=== PATIENT | female | born 1985 ===

== ENCOUNTER 2020-02-27 13:23 | Outpatient (REF) | payer MEDICAID, SELFPAY | END 2020-02-27 13:24 | disposition home or self-care (01) | LOC: HO.LNP 13:23 | PROVIDERS: Referring Provider Obstetrics & Gynecology; Visit Provider Obstetrics & Gynecology | DX: R10.2 Pelvic and perineal pain (principal) | CPT/HCPCS: 88305; 99214; 99215 ==

== ENCOUNTER 2020-03-08 15:27 | Outpatient (REF) | payer MEDICAID, SELFPAY ==
--- NOTE | 2020-03-08 15:31 | US_ITS ---
EXAMINATION: PELVIC ULTRASOUND CLINICAL INFORMATION: Pain COMPARISON: Previous CT of the abdomen and pelvis August 2017 and pelvic ultrasound August 2016 TECHNIQUE: Transabdominal and transvaginal pelvic ultrasound was performed. Transvaginal exam was performed for better visualization of the uterus and ovaries. FINDINGS: The uterus is anteverted and retroflexed and measures 9.3 x 3.1 x 5.5 cm in dimension. No focal uterine lesion is seen. Endometrial thickness is normal estimated at 0.9 cm. There are small nabothian cysts in the cervix. There is a small amount of fluid in the endocervical canal. The ovaries are normal-appearing. The right ovary measures 3.5 x 2.1 x 2.8 cm and the left ovary measures 2.1 x 1 x 2.4 cm. There is no fluid in the pelvis. IMPRESSION: Unremarkable exam.
== END 2020-03-08 15:28 | disposition home or self-care (01) ==
LOC: HO.US 15:27
PROVIDERS: Visit Provider Physician Assistant Medical
DX: R10.2 Pelvic and perineal pain (principal)
CPT/HCPCS: 76830; 76856

== ENCOUNTER 2020-07-16 15:42 | Emergency (ER) | payer MEDICAID, SELFPAY ==
--- NOTE | ~2020-07-16 | XR_ITS ---
EXAMINATION: XR CHEST CLINICAL INFORMATION: Cough and chest pain COMPARISON: Chest radiograph 05/26/2017 TECHNIQUE: Frontal view of the chest was obtained. FINDINGS: No significant abnormality is noted involving the heart, lungs, mediastinum, bony thorax or soft tissues. XR/XR chest 1V IMPRESSION: Unremarkable examination.
--- NOTE | 2020-07-16 15:44 | ECG_ITS ---
Test Reason : CHEST PAIN Blood Pressure : / mmHG Vent. Rate : 112 BPM Atrial Rate : 112 BPM P-R Int : 128 ms QRS Dur : 086 ms QT Int : 328 ms P-R-T Axes : 047 050 044 degrees QTc Int : 447 ms Sinus tachycardia Nonspecific T wave abnormality Abnormal ECG When compared with ECG of 26-MAY-2017 13:29, T wave inversion more prominent in anterior leads Referred By: Generic ED Physician Electronically Signed By:LYRIC LE MD
[2020-07-16 15:49] VITALS: BP 116/68; PULSE 114; RESP 18; TEMP 37.1; O2SAT 98; BMI 33.4
[2020-07-16 18:27] LABS: MANUAL DIFF FLAG NO
--- NOTE | 2020-07-16 18:35 | ED.CHESTPAIN ---
HPI - Chest Pain General Chief Complaint: Chest Pain Stated Complaint: CP Time Seen by Provider: 07/16/20 18:35 History of Present Illness HPI narrative: Patient complains of 4 days of a continuous pleuritic chest pain worse with coughing accompanied by more frequent use of her albuterol inhaler and a dry cough that is been going on for about a week, as well as a stuffy nose, no fever no chills, albuterol has relieved her shortness of breath and she is not short of breath at this time, the pain is not associated with anything and is present all the time for 4 days, no effect with exertion, no sweating, no leg pain or swelling, no nausea no vomiting The pain is present now only with a deep breath or cough, patient has had this pain before associated with a cough and asthma Related Data Previous Rx's Medication Instructions Recorded azithromycin [Zithromax Z-Chicho] 250 mg PO DAILY 5 Days #6 tab 07/16/20 prednisone 40 mg PO DAILY 4 Days #8 tab 07/16/20 Allergies Allergy/AdvReac Type Severity Reaction Status Date / Time meloxicam [MELOXICAM] Allergy Unknown TACHYCARDIA, Verified 02/27/20 13:30 palpitations morphine [MORPHINE] Allergy Unknown UNKNOWN, Verified 02/27/20 13:30 vomiting Sulfa (Sulfonamide Allergy Unknown SWELLING Verified 02/27/20 13:30 Antibiotics) [SULFA (SULFONAMIDE ANTIBIOTICS)] Review of Systems Review of Systems: Positive for cough and pleuritic chest pain for 4 days as well as nasal congestion Negatives are fever chills, no dizziness no weakness no fainting no feeling faint, no palpitations no exertional symptoms, no sweating no nausea no vomiting no abdominal pain no leg pain no leg swelling no numbness or weakness, no rash PMFSH Past Medical History PMFSH Narrative: Medical history includes asthma anxiety depression and bipolar Source: nursing notes reviewed Medical History Anxiety and depression Asthma Bipolar 1 disorder Fibromyalgia Migraines Surgical History Hx of section Family History Family History Father Family hx of hypertension Maternal Grandfather Family history of diabetes mellitus Maternal Grandmother Family history of diabetes mellitus Social History Social History Alcohol intake: never Smoking Status: Never smoker Advance Directives: No Advance Directives Information Provided: Yes Sexual orientation: Straight/Heterosexual Gender identity: female Physical Exam Vital Signs: Vital Signs: Last Vital Signs Temp 98.7 F 07/16/20 15:49 Pulse 106 H 07/16/20 20:00 Resp 18 07/16/20 20:00 BP 113/70 07/16/20 20:00 Pulse Ox 98 07/16/20 20:00 Body Mass Index 33.4 General appearance is no acute distress, comfortable relaxed cooperative, in O x3 Head is normocephalic atraumatic The neck is supple The pharynx is clear The eardrums and ear canals are normal no redness or swelling The neck is supple, no lymphadenopathy no JVD The chest is clear to auscultation with full symmetric equal breath sounds no wheezing The heart rate and rhythm regular no murmur The abdomen soft nontender The extremities no edema no calf tenderness or swelling Skin no rash Neuro no focal deficit, patient is A&O x3, conversation and understanding are normal, gait is normal balance is normal Course Course Course Narrative: Patient remains comfortable throughout ER visit, she was not wheezing but has been using her nebulizer frequently with good relief of her shortness of breath at home, EKG and troponin did not show any of any evidence of myocardial infarction PE very unlikely given similarity to previous symptoms in the past when she had bronchitis associated with an asthma flare Patient is discharged with diagnosis bronchitis and asthma, shortness of breath was relieved with albuterol at home, she has had these symptoms with cough in the past MDM - Chest Pain Lab Data Attestation: I reviewed the patient's lab results. Result diagrams: 07/16/20 18:04 07/16/20 18:04 Labs: Lab Results 07/16/20 07/16/20 07/16/20 Range/Units 18:04 18:04 18:04 WBC 7.1 (4.8-10.8) X10*3/uL RBC 4.74 (4.20-5.50) X10*6/uL Hgb 13.5 (12.0-16.0) g/dl Hct 42.1 (37-47) % MCV 88.8 (80-98) fL MCH 28.5 (27.0-33.0) pg MCHC 32.1 (31.0-35.0) g/dl RDW 13.2 (11.0-16.0) % Plt Count 221 (160-400) X10*3/uL MPV 12.2 (9.4-12.3) fL Immature Gran % (Auto) 2.8 H (0.0-0.4) % Neut % (Auto) 50.4 (45-73) % Lymph % (Auto) 31.9 (20-40) % Jasper % (Auto) 7.7 (2-11) % Eos % (Auto) 6.2 H (0-4) % Baso % (Auto) 1.0 (0-2) % Lymph # (Auto) 2.3 (1.2-4.9) X10*3/uL Jasper # (Auto) 0.6 (0.1-1.2) X10*3/uL Eos # (Auto) 0.4 (0.0-0.4) X10*3/uL Baso # (Auto) 0.1 (0.0-0.2) X10*3/uL Abs Immat Gran (auto) 0.20 H (0.00-0.03) X10*3/uL Absolute Neuts (auto) 3.6 (2.0-8.3) X10*3/uL Absolute Nucleated RBC 0.000 (0.0-0.012) X10*3/uL Nucleated RBC % (auto) 0.0 (0.0-0.2) /100WBC Hold Blue Top SEE NOTE Sodium 138 (135-145) mmol/L Potassium 4.0 (3.3-5.1) mmol/L Chloride 104 (96-108) mmol/L Carbon Dioxide 24 (22-29) mmol/L Anion Gap 14 (12-20) BUN 8 L (9-16) mg/dL Creatinine 0.78 (0.5-1.4) mg/dL Estim Creat Clear Calc 116.2 Estimated GFR > 60 Random Glucose 98 (60-115) mg/dL Calcium 8.9 (8.4-10.2) mg/dL Troponin I High Sens (<3.5-17.0) ng/L 07/16/20 Range/Units 18:04 WBC (4.8-10.8) X10*3/uL RBC (4.20-5.50) X10*6/uL Hgb (12.0-16.0) g/dl Hct (37-47) % MCV (80-98) fL MCH (27.0-33.0) pg MCHC (31.0-35.0) g/dl RDW (11.0-16.0) % Plt Count (160-400) X10*3/uL MPV (9.4-12.3) fL Immature Gran % (Auto) (0.0-0.4) % Neut % (Auto) (45-73) % Lymph % (Auto) (20-40) % Jasper % (Auto) (2-11) % Eos % (Auto) (0-4) % Baso % (Auto) (0-2) % Lymph # (Auto) (1.2-4.9) X10*3/uL Jasper # (Auto) (0.1-1.2) X10*3/uL Eos # (Auto) (0.0-0.4) X10*3/uL Baso # (Auto) (0.0-0.2) X10*3/uL Abs Immat Gran (auto) (0.00-0.03) X10*3/uL Absolute Neuts (auto) (2.0-8.3) X10*3/uL Absolute Nucleated RBC (0.0-0.012) X10*3/uL Nucleated RBC % (auto) (0.0-0.2) /100WBC Hold Blue Top Sodium (135-145) mmol/L Potassium (3.3-5.1) mmol/L Chloride (96-108) mmol/L Carbon Dioxide (22-29) mmol/L Anion Gap (12-20) BUN (9-16) mg/dL Creatinine (0.5-1.4) mg/dL Estim Creat Clear Calc Estimated GFR Random Glucose (60-115) mg/dL Calcium (8.4-10.2) mg/dL Troponin I High Sens < 3.5 (<3.5-17.0) ng/L Discharge Plan Discharge Clinical Impression: Bronchitis Asthma Qualifiers: Asthma severity: moderate Asthma persistence: unspecified Asthma complication type: unspecified Qualified Code(s): J45.909 - Unspecified asthma, uncomplicated Patient Disposition: Home, Self-Care Additional Instructions: Pain and cough are most likely from bronchitis and asthma We are starting prednisone for your asthma and Zithromax antibiotic for the cough Return any time for any worse difficulty breathing, worsening chest pain, fainting dizziness, any worse condition or any concerns Prescriptions: New azithromycin [Zithromax Z-Chicho] 250 mg tablet 250 mg PO DAILY 5 Days Qty: 6 RF: 0 prednisone 20 mg tablet 40 mg PO DAILY 4 Days Qty: 8 RF: 0 Interventions: ED Discharge Assessment Last Done: 07/16/20 20:24
[2020-07-16 18:44] LABS: Basophils Absolute Auto 0.1 X10*3/uL (0.0-0.2); Eosinophils Absolute Auto 0.4 X10*3/uL (0.0-0.4); Eosinophils Percent Auto 6.2 % (0-4); Hematocrit 42.1 % (37-47); Hemoglobin 13.5 g/dl (12.0-16.0); Imm Gran Pct Auto 2.8 % (0.0-0.4); Lymphocytes Absolute Auto 2.3 X10*3/uL (1.2-4.9); Lymphocytes Percent Auto 31.9 % (20-40); Mean Corpuscular HGB Conc 32.1 g/dl (31.0-35.0); Mean Corpuscular Hemoglobin 28.5 pg (27.0-33.0); Mean Corpuscular Volume 88.8 fL (80-98); Mean Platelet Volume 12.2 fL (9.4-12.3); Monocytes Absolute Auto 0.6 X10*3/uL (0.1-1.2); Monocytes Percent Auto 7.7 % (2-11); Neutrophils Absolute Auto 3.6 X10*3/uL (2.0-8.3); Neutrophils Percent Auto 50.4 % (45-73); Platelet Count 221 X10*3/uL (160-400); Red Blood Count 4.74 X10*6/uL (4.20-5.50); Red Cell Distribution Width 13.2 % (11.0-16.0); White Blood Count 7.1 X10*3/uL (4.8-10.8)
[2020-07-16 19:03] LABS: Anion Gap 14 (12-20); Blood Urea Nitrogen 8 mg/dL (9-16); Calcium 8.9 mg/dL (8.4-10.2); Carbon Dioxide 24 mmol/L (22-29); Chloride 104 mmol/L (96-108); Creatinine Clr Calc Pharmacy 116.2; Estimated Glomerular Filt Rate > 60; Glucose Random 98 mg/dL (60-115); Sodium 138 mmol/L (135-145)
[2020-07-16 19:07] LABS: Troponin-I High Sensitivity < 3.5 ng/L (<3.5-17.0)
[2020-07-16 20:00] VITALS: BP 113/70; PULSE 106; RESP 18; O2SAT 98
[2020-07-16] MEDS: predniSONE 20 MG TABLET 40 MG PO (20:20)
[2020-07-16] MEDS: Ketorolac Tromethamine 30 MG/ML VIAL IM (20:20)
== END 2020-07-16 20:27 | disposition home or self-care (01) ==
PROVIDERS: Emergency Provider Emergency Medicine
DX: J40 Bronchitis, not specified as acute or chronic (principal); R07.89 Other chest pain; R05 Cough; Z79.899 Other long term (current) drug therapy
CPT/HCPCS: 36415; 71045; 80048; 84484; 85025; 93005; 96372; 99284; J1885

== ENCOUNTER 2020-09-23 15:32 | Outpatient (REF) | payer MEDICAID, SELFPAY | END 2020-09-23 15:33 | disposition home or self-care (01) | LOC: HO.LAB 15:32 | PROVIDERS: Visit Provider Internal Medicine | DX: Z20.822 Contact with and (suspected) exposure to COVID-19 (principal) | CPT/HCPCS: C9803; U0003; U0005 ==

== ENCOUNTER 2020-11-16 10:50 | Outpatient (REF) | payer MEDICAID, SELFPAY ==
--- NOTE | ~2020-11-16 | XR_ITS ---
EXAMINATION: XR KNEE, RIGHT CLINICAL INFORMATION: Pain in bilateral knees COMPARISON: None TECHNIQUE: Four views of the right knee. FINDINGS: Bones and soft tissues are normal. No fracture or joint effusion. Alignment is anatomic. Joint spaces are well maintained. No abnormal soft tissue calcification. XR/XR knee RT 4V IMPRESSION: Normal right knee.
--- NOTE | ~2020-11-16 | XR_ITS ---
EXAMINATION: XR KNEE, LEFT CLINICAL INFORMATION: Pain in bilateral knees COMPARISON: 05/17/2014 TECHNIQUE: Four views of the left knee. FINDINGS: No fracture, dislocation, or joint effusion. There may be mild medial compartment joint space narrowing. Lateral and patellofemoral compartment joint spaces are maintained. XR/XR knee LT 4V IMPRESSION: Possible mild medial compartment joint space narrowing.
== END 2020-11-16 10:51 | disposition home or self-care (01) ==
LOC: HO.XRAY 10:50
PROVIDERS: Absent Provider Family Medicine; PCP Family Medicine; Visit Provider Family Medicine
DX: M25.561 Pain in right knee (principal); M25.562 Pain in left knee
CPT/HCPCS: 73564

== ENCOUNTER 2020-12-01 23:10 | Emergency (ER) | payer OTHER, MEDICAID, SELFPAY ==
--- NOTE | ~2020-12-01 | XR_ITS ---
EXAMINATION: 1. LEFT WRIST. 2. LEFT ELBOW. 3. LEFT SHOULDER. CLINICAL INFORMATION: Arm pain COMPARISON: Left elbow May 09, 2014. Left shoulder May 17, 2014. TECHNIQUE: 1. Left wrist. 3 views 2. Left elbow. 4 views 3. Left shoulder. 3 views FINDINGS: 1. Left wrist. No fracture or dislocation. No soft tissue abnormality. 2. Left elbow. No fracture. No dislocation. No joint effusion. 3. Left shoulder. No fracture. Glenohumeral and acromioclavicular joints are normal. No soft tissue abnormality. XR/XR elbow LT min 3V IMPRESSION: 1. Left wrist. Normal left wrist. 2. Left elbow. Normal left elbow. 3. Left shoulder. Normal left shoulder.
--- NOTE | ~2020-12-01 | XR_ITS ---
EXAMINATION: 1. LEFT WRIST. 2. LEFT ELBOW. 3. LEFT SHOULDER. CLINICAL INFORMATION: Arm pain COMPARISON: Left elbow May 09, 2014. Left shoulder May 17, 2014. TECHNIQUE: 1. Left wrist. 3 views 2. Left elbow. 4 views 3. Left shoulder. 3 views FINDINGS: 1. Left wrist. No fracture or dislocation. No soft tissue abnormality. 2. Left elbow. No fracture. No dislocation. No joint effusion. 3. Left shoulder. No fracture. Glenohumeral and acromioclavicular joints are normal. No soft tissue abnormality. XR/XR wrist LT min 3V IMPRESSION: 1. Left wrist. Normal left wrist. 2. Left elbow. Normal left elbow. 3. Left shoulder. Normal left shoulder.
--- NOTE | ~2020-12-01 | XR_ITS ---
EXAMINATION: 1. LEFT WRIST. 2. LEFT ELBOW. 3. LEFT SHOULDER. CLINICAL INFORMATION: Arm pain COMPARISON: Left elbow May 09, 2014. Left shoulder May 17, 2014. TECHNIQUE: 1. Left wrist. 3 views 2. Left elbow. 4 views 3. Left shoulder. 3 views FINDINGS: 1. Left wrist. No fracture or dislocation. No soft tissue abnormality. 2. Left elbow. No fracture. No dislocation. No joint effusion. 3. Left shoulder. No fracture. Glenohumeral and acromioclavicular joints are normal. No soft tissue abnormality. XR/XR shoulder LT min 2V IMPRESSION: 1. Left wrist. Normal left wrist. 2. Left elbow. Normal left elbow. 3. Left shoulder. Normal left shoulder.
[2020-12-01 23:12] VITALS: BP 113/80; PULSE 120; RESP 18; TEMP 37; O2SAT 100; BMI 35.5
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
[2020-12-02] MEDS: Cyclobenzaprine HCl 10 MG TABLET PO (00:42)
[2020-12-02] MEDS: Ketorolac Tromethamine 60 MG/2 ML VIAL IM (00:42)
== END 2020-12-02 00:50 | disposition home or self-care (01) ==
PROVIDERS: Emergency Provider Emergency Medicine Emergency Medical Services; PCP Family Medicine
DX: S13.9XXA Sprain of joints and ligaments of unspecified parts of neck, initial encounter (principal); M25.512 Pain in left shoulder; M25.522 Pain in left elbow; M25.532 Pain in left wrist; V89.2XXA Person injured in unspecified motor-vehicle accident, traffic, initial encounter; Y93.9 Activity, unspecified; Y92.481 Parking lot as the place of occurrence of the external cause; Y99.9 Unspecified external cause status
CPT/HCPCS: 73030; 73080; 73110; 96372; 99284; J1885

== ENCOUNTER → 2020-12-23 15:02 | Outpatient (BNVA) | payer OTHER, SELFPAY | PROVIDERS: Visit Provider Physician Assistant ==

== ENCOUNTER 2020-12-28 14:17 | Outpatient (REF) | payer OTHER, MEDICAID, SELFPAY | END 2020-12-28 14:18 | disposition home or self-care (01) | LOC: HO.MRI 14:17 | PROVIDERS: PCP Family Medicine; Visit Provider Registered Nurse Community Health | DX: Z13.89 Encounter for screening for other disorder (principal) ==

== ENCOUNTER 2020-12-30 18:20 | Outpatient (REF) | payer OTHER, MEDICAID, SELFPAY ==
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
== END 2020-12-30 18:21 | disposition home or self-care (01) ==
LOC: HO.MRI 18:20
PROVIDERS: PCP Family Medicine; Visit Provider Registered Nurse Community Health
DX: M25.522 Pain in left elbow (principal)
CPT/HCPCS: 73221

== ENCOUNTER 2021-02-13 10:06 | Emergency (ER) | payer MEDICAID, SELFPAY ==
[2021-02-13 10:29] VITALS: BP 120/58; PULSE 88; RESP 19; TEMP 36.6; O2SAT 99; BMI 35.0
== END 2021-02-13 11:15 | disposition left against medical advice (07) ==
PROVIDERS: Emergency Provider Emergency Medicine
DX: R07.9 Chest pain, unspecified (principal); R06.02 Shortness of breath
CPT/HCPCS: 99281; 99282

== ENCOUNTER → 2021-05-04 13:52 | Outpatient (REF) | payer MEDICAID, SELFPAY | LOC: HO.SL 13:52 | PROVIDERS: PCP Family Medicine; Visit Provider Family Medicine | DX: G47.30 Sleep apnea, unspecified (principal) | CPT/HCPCS: 95806 ==

== ENCOUNTER → 2021-08-26 14:32 | Outpatient (BNVA) | payer MEDICAID, SELFPAY | PROVIDERS: PCP Family Medicine; Visit Provider Physician Assistant Surgical | DX: Z13.89 Encounter for screening for other disorder (principal) ==

== ENCOUNTER → 2021-09-02 12:19 | Outpatient (BNVA) | payer MEDICAID, SELFPAY | PROVIDERS: PCP Family Medicine; Referring Provider Family Medicine; Visit Provider Physician Assistant Surgical | DX: E66.9 Obesity, unspecified (principal); Z68.34 Body mass index [BMI] 34.0-34.9, adult | CPT/HCPCS: 99202 ==

== ENCOUNTER 2021-10-03 07:34 | Emergency (ER) | payer MEDICAID, SELFPAY ==
--- NOTE | ~2021-10-03 | XR_ITS ---
EXAMINATION: XR CHEST CLINICAL INFORMATION: Chest pain COMPARISON: 07/16/2020 TECHNIQUE: Frontal view of the chest was obtained. FINDINGS: Normal symmetric lung volumes. No parenchymal consolidation. No pleural effusion. No pneumothorax. Cardiomediastinal silhouette and pulmonary vascularity are within normal limits. No acute osseous abnormalities. XR/XR chest 1V IMPRESSION: No acute findings.
[2021-10-03 07:44] VITALS: BP 127/75; PULSE 94; RESP 18; TEMP 36.1; O2SAT 100; BMI 33.8
--- NOTE | 2021-10-03 07:44 | ECG_ITS ---
Test Reason : cp Blood Pressure : / mmHG Vent. Rate : 088 BPM Atrial Rate : 088 BPM P-R Int : 126 ms QRS Dur : 076 ms QT Int : 366 ms P-R-T Axes : 049 050 038 degrees QTc Int : 442 ms Normal sinus rhythm Normal ECG When compared to the previous EKG of 16 jul 2020, T inversions in anterior leads less prominent Referred By: Generic ED Physician Electronically Signed By:ERASTO ORTIZ
--- NOTE | 2021-10-03 08:43 | ED.URI ---
HPI - URI/Sore Throat General Chief Complaint: Upper Respiratory Symptoms Stated Complaint: pain in chest and throat , sinus Time Seen by Provider: 10/03/21 08:04 Source: patient and site interpreter Mode of arrival: ambulatory Limitations: no limitations History of Present Illness HPI Narrative: 1 day of sore throat, runny nose, cough, chest hurts MD elicited complaint: cough, sore throat and rhinorrhea Onset (ago): day(s) (1) Consistency: constant Severity: moderate Description of mucous: clear Able to tolerate fluids by mouth: Yes Exacerbating factors: swallowing and other (coughing) Relieving factors: nothing Associated symptoms: chills, rhinorrhea, sore throat, cough and chest pain Treatments prior to arrival: none Related Data Home Medications Medication Instructions Recorded Confirmed amitriptyline 25 mg tablet 25 mg PO BEDTIME 08/26/21 09/02/21 atorvastatin 20 mg tablet 20 mg PO DAILY 08/26/21 09/02/21 bupropion HCl 150 mg 24 hr tablet, 150 mg PO QAM 08/26/21 09/02/21 extended release bupropion HCl 300 mg 24 hr tablet, 300 mg PO QAM 08/26/21 09/02/21 extended release cholecalciferol (vitamin D3) 50 100 mcg PO DAILY 08/26/21 09/02/21 mcg (2,000 unit) capsule fluticasone propionate 230 2 puff PO 08/26/21 09/02/21 mcg-salmeterol 21 mcg/actuation HFA inhaler (Advair HFA) hydroxyzine HCl 10 mg tablet 10 mg PO BID PRN 08/26/21 09/02/21 sertraline 50 mg tablet 50 mg PO DAILY 08/26/21 09/02/21 Previous Rx's Medication Instructions Recorded cyclobenzaprine 10 mg tablet 10 mg PO TID PRN #20 tab 12/02/20 Allergies Allergy/AdvReac Type Severity Reaction Status Date / Time meloxicam [MELOXICAM] Allergy Unknown TACHYCARDIA, Verified 09/02/21 12:54 palpitations morphine [MORPHINE] Allergy Unknown UNKNOWN, Verified 09/02/21 12:54 vomiting Sulfa (Sulfonamide Allergy Unknown SWELLING Verified 09/02/21 12:54 Antibiotics) [SULFA (SULFONAMIDE ANTIBIOTICS)] Review of Systems Review of Systems: Constitutional : positive Fever, positive Chills, positive fatigue, positive Malaise ENT/Mouth : positive sore throat, positive runny nose Eyes: No Discharge Cardiovascular : No Chest Pain, No SOB Respiratory : No Cough, No Sputum Gastrointestinal : No Nausea, No Vomiting, No Diarrhea Genitourinary : No Dysuria, No Urinary Frequency Musculoskeletal : positive Myalgia Skin : No rash Neuro : No Headache All other systems reviewed and are negative PMFSH Past Medical History Attestation statement: The following information was validated with the patient. Medical History Anxiety and depression Asthma Bipolar 1 disorder Fibromyalgia Migraines Surgical History History of surgery on arm Hx of section Family History Family History Father Family hx of hypertension Maternal Grandfather Family history of diabetes mellitus Maternal Grandmother Family history of diabetes mellitus Mother Diabetes Thyroid condition Sister Thyroid condition High cholesterol Brother No problems noted. Brother No problems noted. Brother No problems noted. Son No problems noted. Son Autism Social History Social History Alcohol intake: never Patient Tobacco Use Status: Former Tobacco user Advance Directives: No Current occupational status: unemployed Current occupation: rt handed Sexual orientation: Straight/Heterosexual Gender identity: Female Physical Exam Vital Signs: Vital Signs: Last Vital Signs Temp 97.0 F 10/03/21 07:44 Pulse 94 10/03/21 07:44 Resp 18 10/03/21 07:44 BP 127/75 10/03/21 07:44 Pulse Ox 100 10/03/21 07:44 BMI result Body Mass Index 33.8 Course Course Course Narrative: negative workup stable for DC MDM - URI/Sore Throat MDM Narrative Medical decision making narrative: 35 yo female with hx of obesity comes in with c/o not feeling well URI symptoms and atypical chest pain she is PERC negative not on OCPs - will obtain strep, covid/flu and EKG - troponin x 1, CXR if negative stable for DC. Not toxic appearing Lab Data Labs: Lab Results 10/03/21 10/03/21 10/03/21 Range/Units 08:51 08:52 08:52 Troponin I High Sens (<3.5-17.0) ng/L COVID-19 (KITTY) Negative (Negative) COVID-19 Clin Com See Note Influenza Type A (JJ) Negative (Negative) Influenza Type B (JJ) Negative (Negative) Influenza A & B Note See Note S. pyogenes GrpA JJ Negative (Negative) 10/03/21 Range/Units 09:32 Troponin I High Sens < 3.5 (<3.5-17.0) ng/L COVID-19 (KITTY) (Negative) COVID-19 Clin Com Influenza Type A (JJ) (Negative) Influenza Type B (JJ) (Negative) Influenza A & B Note S. pyogenes GrpA JJ (Negative) ECG Data Attestation: I personally reviewed and interpreted this ECG as follows: ECG interpretation date: 10/03/21 ECG interpretation time: 09:14 Interpretation: Rate: 88 Rhythm: NSR [place]: normal Normal P waves. Normal WILLIAM. Normal QRS complex. ST T wave : nonspecific V1-V3 no KRISTEN qTC: normal prior studies: no acute ischemia no change jun 2020 The study has been interpreted contemporaneously by me. Discharge Plan Discharge Clinical Impression: Viral infection, Atypical chest pain Patient Disposition: Home, Self-Care Instructions: Chest Pain (ED), Viral Syndrome (ED) Additional Instructions: return to ED for any worsening symptoms or concerns NO FLU, COVID, STREP Prescriptions: No Action cyclobenzaprine 10 mg tablet 10 mg PO TID PRN (Reason: muscle pain or spasm) Qty: 20 0RF atorvastatin 20 mg tablet 20 mg PO DAILY 0RF bupropion HCl 300 mg tablet extended release 24 hr 300 mg PO QAM 0RF cholecalciferol (vitamin D3) 50 mcg (2,000 unit) capsule 100 mcg PO DAILY 0RF Advair HFA 230-21 mcg/actuation HFA aerosol inhaler 2 puff PO 0RF bupropion HCl 150 mg tablet extended release 24 hr 150 mg PO QAM 0RF hydroxyzine HCl 10 mg tablet 10 mg PO BID PRN (Reason: anxiety) 0RF sertraline 50 mg tablet 50 mg PO DAILY 0RF amitriptyline 25 mg tablet 25 mg PO BEDTIME 0RF Referrals: Ale Morales MD [Primary Care Provider] - 2 days (if not better) Stand Alone Forms: Work/School Release Print Language: Bel[place]ian
[2021-10-03 09:07] LABS: Strep A Nucleic Acid Negative (Negative)
[2021-10-03 09:19] LABS: COVID-19 Test Negative (Negative)
[2021-10-03 09:20] LABS: IDNOW Serial# 16C4AD1C; Influenza A Negative (Negative); Influenza B2 Negative (Negative)
[2021-10-03 10:00] LABS: Troponin-I High Sensitivity < 3.5 ng/L (<3.5-17.0)
== END 2021-10-03 12:15 | disposition home or self-care (01) ==
PROVIDERS: Emergency Provider Emergency Medicine; PCP Family Medicine
DX: B34.9 Viral infection, unspecified (principal); R07.89 Other chest pain; R05.9 Cough, unspecified; Z20.822 Contact with and (suspected) exposure to COVID-19; Z79.899 Other long term (current) drug therapy; Z87.891 Personal history of nicotine dependence
CPT/HCPCS: 36415; 71045; 84484; 87502; 87635; 87651; 93005; 99283

== ENCOUNTER → 2021-10-10 08:27 | Outpatient (BNVA) | payer MEDICAID, SELFPAY | PROVIDERS: PCP Family Medicine; Visit Provider Dietitian, Registered | DX: E66.9 Obesity, unspecified (principal) | CPT/HCPCS: 97802 ==

== ENCOUNTER 2022-02-04 15:57 | Emergency (ER) | payer MEDICAID, SELFPAY | END 2022-02-04 19:28 | disposition left against medical advice (07) | PROVIDERS: Emergency Provider Emergency Medicine; PCP Family Medicine | DX: Z04.1 Encounter for examination and observation following transport accident (principal) ==

== ENCOUNTER 2022-06-29 11:24 | Outpatient (REF) | payer MEDICAID, SELFPAY ==
--- NOTE | ~2022-06-29 | US_ITS ---
EXAMINATION: US PELVIS COMPLETE CLINICAL INFORMATION: Pelvic pain COMPARISON: Pelvic ultrasound 03/08/2020 TECHNIQUE: Transabdominal and transvaginal imaging was performed. FINDINGS: The uterus is of normal size and echogenicity measuring 10.6 x 3.5 x 5.2 cm. A regular homogeneous endometrium is identified measuring 0.6 cm. Trace fluid within the endometrial canal. Both ovaries are of normal size. The right measures 3.1 x 1.6 x 1.7 cm for a volume of 4.4 mL. The left measures 2.8 x 1.2 x 1.9 cm for a volume of 3.3 mL. The right ovary is unremarkable. The left ovary is remarkable for a subtle 3 mm echogenic lesion. There is no pelvic free fluid. US/US pelvic and transvaginal IMPRESSION: A 3 mm echogenic left ovarian lesion which could potentially reflect a tiny ovarian dermoid. Recommend further evaluation with contrast-enhanced MR pelvis, however given small size this finding may be too small to definitively characterize. Trace simple fluid within the endometrial canal. Otherwise unremarkable pelvic ultrasound.
== END 2022-06-29 11:25 | disposition home or self-care (01) ==
LOC: HO.US 11:24
PROVIDERS: PCP Family Medicine; Visit Provider Advanced Practice Midwife
DX: N93.9 Abnormal uterine and vaginal bleeding, unspecified (principal)
CPT/HCPCS: 76830; 76856

== ENCOUNTER → 2022-10-03 13:31 | Outpatient (BNVA) | payer MEDICAID, SELFPAY | PROVIDERS: PCP Family Medicine; Visit Provider Physician Assistant Surgical ==

== ENCOUNTER → 2022-10-06 12:54 | Outpatient (BNVA) | payer MEDICAID, SELFPAY | PROVIDERS: PCP Family Medicine; Visit Provider Nurse Practitioner Family | DX: M62.830 Muscle spasm of back (principal); M54.16 Radiculopathy, lumbar region; M47.817 Spondylosis without myelopathy or radiculopathy, lumbosacral region; M46.1 Sacroiliitis, not elsewhere classified; E66.9 Obesity, unspecified; Z68.35 Body mass index [BMI] 35.0-35.9, adult | CPT/HCPCS: 99202 ==

== ENCOUNTER → 2022-11-14 14:16 | Outpatient (BNVA) | payer MEDICAID, SELFPAY | PROVIDERS: PCP Family Medicine; Visit Provider Physician Assistant Surgical | DX: E66.9 Obesity, unspecified (principal); Z68.35 Body mass index [BMI] 35.0-35.9, adult | CPT/HCPCS: 99212 ==

== ENCOUNTER 2022-11-22 10:06 | Outpatient (REF) | payer MEDICAID, SELFPAY ==
--- NOTE | ~2022-11-22 | XR_ITS ---
EXAMINATION: XR CHEST 2 VIEWS CLINICAL INFORMATION: Obesity. COMPARISON: Prior chest radiographs, most recently 10/03/2021. TECHNIQUE: Frontal and lateral views of the chest were obtained. FINDINGS: The heart, great vessels, pulmonary vasculature and mediastinum are normal. The lungs show no focal infiltrate, effusion or pneumothorax. There is no acute osseous abnormality. XR/XR chest 2V IMPRESSION: No active cardiopulmonary disease.
[2022-11-22 11:44] LABS: Alanine Aminotransferase 22 U/L (0-31); Albumin Level 4.3 g/dL (3.5-5.0); Alkaline Phosphatase 107 U/L (39-117); Anion Gap 13 (12-20); Aspartate Amino Transferase 15 U/L (5-31); Bilirubin Total 0.5 mg/dL (0.0-1.0); Blood Urea Nitrogen 11 mg/dL (9-16); C Reactive Protein 0.29 mg/dL (< or = 0.50); Calcium 9.6 mg/dL (8.4-10.2); Carbon Dioxide 21 mmol/L (22-29); Chloride 108 mmol/L (96-108); Cholesterol 150 mg/dL; Estimated Glomerular Filt Rate > 60; Glucose Random 119 mg/dL (60-115); HDL Cholesterol 34 mg/dL; Iron 55 mcg/dL (30-160); LDL Cholesterol Calculated 79 mg/dl; Percent Iron Saturation 13 % (15-50); Potassium 3.8 mmol/L (3.3-5.1); Sodium 138 mmol/L (135-145); Total Iron Binding Capacity 408 mcg/dL (228-428); Total Protein 8.3 g/dL (6.5-8.0); Triglycerides 189 mg/dL; Unsaturated Iron Binding 353 ug/dL
[2022-11-22 12:03] LABS: Ferritin 63 ng/mL (10-122); TSH reflex Free T4 2.86 uIU/mL (0.32-4.0); Vitamin D 25-OH Total 62.7 ng/mL (>30)
[2022-11-22 12:21] LABS: Insulin 29 uU/mL (2-29)
[2022-11-26 12:43] LABS: Vitamin B1 9 nmol/L (8-30)
[2022-11-28 22:09] LABS: Vitamin A 61 mcg/dL (38-98)
== END 2022-11-22 10:07 | disposition home or self-care (01) ==
LOC: HO.XRAY 10:06
PROVIDERS: PCP Family Medicine; Visit Provider Physician Assistant Surgical
DX: E66.9 Obesity, unspecified (principal)
CPT/HCPCS: 36415; 71046; 80053; 80061; 82306; 82607; 82728; 82746; 83036; 83525; 83540; 83970; 84425; 84443; 84590; 84630; 85025; 86140; 93005

== ENCOUNTER 2022-12-04 10:00 | Outpatient (AMB) | payer OTHER, SELFPAY ==
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
== END 2022-12-04 10:58 | disposition home or self-care (01) ==
LOC: HO.HBST 10:46
PROVIDERS: PCP Family Medicine; Visit Provider Counselor Mental Health
DX: F31.9 Bipolar disorder, unspecified (principal)
CPT/HCPCS: 90791

== ENCOUNTER → 2022-12-04 10:00 | Outpatient (BNVA) | payer OTHER, MEDICAID, SELFPAY | PROVIDERS: PCP Family Medicine; Visit Provider Counselor Mental Health ==

== ENCOUNTER → 2022-12-07 13:40 | Outpatient (BNVA) | payer MEDICAID, SELFPAY | PROVIDERS: PCP Family Medicine; Visit Provider Dietitian, Registered | DX: E66.9 Obesity, unspecified (principal) | CPT/HCPCS: 97802 ==

== ENCOUNTER 2023-01-05 14:00 | Outpatient (AMB) | payer MEDICAID, SELFPAY ==
--- NOTE | 2023-01-05 14:08 | A.OFFVIS_ITS ---
Intake VS Expanded 01/05/23 14:17 Height 5 ft 3 in Weight 183 lb BMI 32.4 Intake Visit Reasons: (TV) f/u SW[employer] Career Technical Education Instructor Required: Yes Career Technical Education Instructor Name: severo [id number] Information Interpreted: non-clinical & clinical Allergies meloxicam [MELOXICAM] Allergy (Unknown, Verified 11/14/22 14:28) TACHYCARDIA, palpitations morphine [MORPHINE] Allergy (Unknown, Verified 11/14/22 14:28) UNKNOWN, vomiting Sulfa (Sulfonamide Antibiotics) [SULFA (SULFONAMIDE ANTIBIOTICS)] Allergy (Unknown, Verified 11/14/22 14:28) SWELLING HPI Nutrition Presentation Details 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 has 2 shakes orgain powder - first shake has 2 scoops, second shake has 1 scoop 1 protein bar 1 meal, Yesterday ate chicken and salad. Usually has the same thing everyday - chicken or fish Exercise: stationary bike 30 minutes and walking daily SWL online classes : completed but scored 20% on 4 and 60% last appt I requested she retake these but she hasn't done that yet. She reports she was too busy with her child. Dietary counseling reduction Diagnosis Nutrition problem #1 overweight/obesity As related to (etiology) #1 excess energy intake and physical inactivity As evidenced by (sign/symptom) #1 high BMI Monitoring/Goals Nutrition problem monitoring total energy intake, level of knowledge/skill, total PRO intake, total CHO intake and weight Outcome progress progressing Learning/Education Readiness to learn good Stages of change action Educational materials provided Yes Most Recent Diabetes Results: Cholesterol 150 mg/dL 11/22/22 HDL Cholesterol 34 mg/dL 11/22/22 Triglycerides 189 mg/dL 11/22/22 Creatinine 0.77 mg/dL (0.5-1.4) 11/22/22 Blood Urea Nitrogen 11 mg/dL (9-16) 11/22/22 Sodium 138 mmol/L (135-145) 11/22/22 Potassium 3.8 mmol/L (3.3-5.1) 11/22/22 Chloride 108 mmol/L (96-108) 11/22/22 Carbon Dioxide 21 mmol/L (22-29) L 11/22/22 Calcium 9.6 mg/dL (8.4-10.2) 11/22/22 AST 15 U/L (5-31) 11/22/22 ALT 22 U/L (0-31) 11/22/22 Total Protein 8.3 g/dL (6.5-8.0) H 11/22/22 Albumin 4.3 g/dL (3.5-5.0) 11/22/22 PFSH Medical History Anxiety and depression Asthma Bipolar 1 disorder Fibromyalgia Migraines Surgical History History of surgery on arm Hx of section Family History Father Family hx of hypertension Maternal Grandfather Family history of diabetes mellitus Maternal Grandmother Family history of diabetes mellitus Mother Diabetes Thyroid condition Sister Thyroid condition High cholesterol Brother No problems noted. Brother No problems noted. Brother No problems noted. Son No problems noted. Son Autism Social History Alcohol intake: never Patient Tobacco Use Status: Former Tobacco user Current occupational status: unemployed Current occupation: rt handed Sexual orientation: Straight/Heterosexual Gender identity: Female Assessment & Plan Assessment & Plan (1) Obesity (BMI 30-39.9): Code(s): E66.9 - Obesity, unspecified Patient Instructions: 16% TBWL , seems to be able to follow instruction very well, but not able to demonstrate knowledge of post op diet recss. Request she retake class 4 and 6 , they have been reset at last appt. I will see her again once complete to review. she will see MAAME SHIELDS again next week and she needs an appt with Telehealth Telehealth Location of provider rendering services: practice address Location of patient: address on file Patient Identification confirmed using: Name, : Yes Telehealth method: voice only Patient verbally consented to treatment: Yes Patient verbally consented to billing insurance company: Yes Patient informed of any privacy concerns related to visit: Yes Minutes spent on Phone/Video with Pt.: 25 Coding Level of Care Code Nutr Indiv Subseq ([id number]) Diagnoses Obesity (BMI 30-39.9) E66.9 Time Spent (min) 25
[2023-01-05 14:17] VITALS: BMI 32.4
== END 2023-01-05 14:55 | disposition home or self-care (01) ==
LOC: HO.HBS 14:51
PROVIDERS: PCP Family Medicine; Visit Provider Dietitian, Registered
DX: E66.9 Obesity, unspecified (principal)

== ENCOUNTER → 2023-01-05 14:00 | Outpatient (BNVA) | payer MEDICAID, SELFPAY | PROVIDERS: PCP Family Medicine; Visit Provider Dietitian, Registered | DX: E66.9 Obesity, unspecified (principal); Z68.32 Body mass index [BMI] 32.0-32.9, adult | CPT/HCPCS: 97803 ==

== ENCOUNTER 2023-02-22 12:42 | Outpatient (REF) | payer MEDICAID, SELFPAY | END 2023-02-22 12:43 | disposition home or self-care (01) | LOC: HO.CHCLNP 12:42 | PROVIDERS: Visit Provider Family Medicine | DX: J06.9 Acute upper respiratory infection, unspecified (principal); Z11.52 Encounter for screening for COVID-19 | CPT/HCPCS: 0241U ==

== ENCOUNTER 2023-03-02 14:00 | Emergency (ER) | payer MEDICAID, SELFPAY ==
--- NOTE | ~2023-03-02 | XR_ITS ---
EXAMINATION: XR CHEST CLINICAL INFORMATION: Cough. COMPARISON: 11/22/2022. TECHNIQUE: 2 views of the chest were obtained. FINDINGS: The cardiomediastinal silhouette is normal. There is no focal lung consolidation or pleural effusion. The bony structures and soft tissues are unremarkable. XR/XR chest 2V IMPRESSION: No active cardiopulmonary disease.
--- NOTE | 2023-03-02 14:02 | ECG_ITS ---
Test Reason : cp Blood Pressure : / mmHG Vent. Rate : 101 BPM Atrial Rate : 101 BPM P-R Int : 134 ms QRS Dur : 078 ms QT Int : 342 ms P-R-T Axes : 042 039 013 degrees QTc Int : 443 ms Sinus tachycardia Nonspecific T wave abnormality Anteroseptal leads RSR' or QR pattern in V1 suggests right ventricular conduction delay When compared with ECG of 22-NOV-2022 10:22, No significant change was found Referred By: Generic ED Physician Electronically Signed By:MARTHA GALLARDO MD
[2023-03-02 14:24] VITALS: BP 103/68; PULSE 101; RESP 19; TEMP 37.1; O2SAT 98; BMI 35.4
--- NOTE | 2023-03-02 14:24 | ED_ITS ---
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 Patient states that over the last 4 days when she coughs, she feels a burning in the center of her chest. Patient denies any dizziness, lightheadedness, abdominal pain, nausea, vomiting, fever, chills, blurry vision, double vision, loss of vision, difficulty breathing, shortness of breath, back pain, night sweats, pain with urination, increased urinary frequency, increased urinary urgency, blood in her urine or stool, syncope or a near syncopal episode, recent trauma or falls, bowel incontinence, bladder incontinence, bowel retention, bladder retention, or any other complaints at this time. Onset (ago): day(s) (4) Location: chest Radiation: non-radiation Severity: mild Severity scale (1-10): 3 Quality: burning Pain Consistency: now resolved Relieving factors: none Exacerbating factors: none Associated symptoms: cough Treatments prior to arrival: none Related Data Home Medications Medication Instructions Recorded Confirmed amitriptyline 25 mg tablet 25 mg PO BEDTIME 08/26/21 11/14/22 atorvastatin 20 mg tablet 20 mg PO DAILY 08/26/21 11/14/22 fluticasone propionate 230 2 puff PO 08/26/21 11/14/22 mcg-salmeterol 21 mcg/actuation HFA inhaler (Advair HFA) hydroxyzine HCl 10 mg tablet 10 mg PO BID PRN anxiety 08/26/21 11/14/22 sertraline 50 mg tablet 50 mg PO DAILY 08/26/21 11/14/22 sumatriptan succinate 100 mg tablet 0 mg PO 10/03/22 11/14/22 tramadol 50 mg tablet 50 mg PO Q12H 10/03/22 11/14/22 metformin 500 mg tablet 500 mg PO BID 11/14/22 11/14/22 Previous Rx's Medication Instructions Recorded methocarbamol 500 mg tablet 500 mg PO TID PRN muscle spasm 30 10/06/22 days #90 tabs Allergies Allergy/AdvReac Type Severity Reaction Status Date / Time meloxicam [MELOXICAM] Allergy Unknown TACHYCARDIA, Verified 11/14/22 14:28 palpitations morphine [MORPHINE] Allergy Unknown UNKNOWN, Verified 11/14/22 14:28 vomiting Sulfa (Sulfonamide Allergy Unknown SWELLING Verified 11/14/22 14:28 Antibiotics) [SULFA (SULFONAMIDE ANTIBIOTICS)] Review of Systems Constitutional: Constitutional: Reports no additional constitutional complaints, Denies chills, Denies fever(s) and Denies night sweats Eyes: Eyes: Reports no additional eye complaints, Denies blurry vision, Denies change in vision, Denies diplopia, Denies eye discharge, Denies loss of vision and Denies eye pain ENT: Denies dizziness Cardiovascular: Cardiovascular: Reports no additional cardiovascular complaints, Reports chest pain (burning sensation with coughing), Denies lightheadedness, Denies Loss of Consciousness and Denies dyspnea Respiratory: Respiratory: Reports no additional respiratory complaints, Reports cough and Denies dyspnea Gastrointestinal: Gastrointestinal: Reports no additional gastrointestinal complaints, Denies abdominal pain, Denies melena, Denies hematochezia, Denies change in bowel habits and Denies change in stool character Genitourinary: Genitourinary: Denies hematuria, Denies urinary frequency, Kaushal es dysuria, Denies urinary incontinence, Denies urinary hesitancy and Denies urinary urgency Musculoskeletal: Musculoskeletal: Reports no additional musculoskeletal complaints, Denies numbness and Denies tingling Neurologic: Denies dizziness, Denies loss of vision, Denies numbness and Denies tingling Psychiatric: Psychiatric: Reports no additional psychiatric complaints Endocrine: Endocrine: Reports no additional endocrine complaints Hematologic/Lymphatic: Hematologic/Lymphatic: Reports no additional hematologic/lymphatic complaints Allergic/Immunologic: Allergic/Immunologic: Reports no additional allergic/immunologic complaints [facility] Past Medical History Attestation statement: The following information was validated with the patient. Source: old records reviewed and nursing notes reviewed Medical History Bipolar 1 disorder Migraines Fibromyalgia Anxiety and depression Asthma Surgical History History of surgery on arm Hx of section Family History Family History Father Family hx of hypertension Maternal Grandfather Family history of diabetes mellitus Maternal Grandmother Family history of diabetes mellitus Mother Diabetes Thyroid condition Sister Thyroid condition High cholesterol Brother No problems noted. Brother No problems noted. Brother No problems noted. Son No problems noted. Son Autism Social History Social History Alcohol intake: never Patient Tobacco Use Status: Former Tobacco user Advance Directives: No Advance Directives Information Provided: No Current occupational status: unemployed Current occupation: rt handed Sexual orientation: Straight/Heterosexual Gender identity: Female Physical Exam ED Vital Signs: Vital Signs - 24 hr 03/02/23 14:24 Temperature 98.8 F Pulse Rate 101 H Respiratory Rate 19 Blood Pressure 103/68 Pulse Oximetry 98 Oxygen Delivery Method Room Air BMI result Body Mass Index 35.4 Const General: cooperative, no acute distress, alert and awake Nutritional Appearance: well nourished Orientation/consciousness: patient oriented x3 Limitations: no limitations HENMT Head: Yes normal to inspection and Yes atraumatic Ears: hearing grossly normal bilaterally and external ears normal General nose exam: Normal external nose present, no nasal discharge noted and no epistaxis Face and sinus: Yes normal facial exam, No abrasion and No laceration Mouth: Normal oral and palatal mucosa present, no drooling and no muffled voice Eyes General: appearance normal, both eyes and all related structures Periorbital: periorbital findings normal Eyelids: Yes eyelids normal Conjunctivae: conjunctivae normal Pupils: Equal, round and reactive pupils present EOM: EOMs intact bilaterally Neck Neck: Yes normal visual inspection, Yes full ROM and Yes no lymphadenopathy Chest Chest palpation & inspection: normal inspection of the chest Resp Effort & Inspection: normal respiratory effort and able to speak in complete sentences Auscultation: clear to auscultation bilaterally Cardio Rate: regular rate Rhythm: regular rhythm GI Inspection: Yes normal to inspection Palpation (GI): Soft to palpation, not firm, nontender, no guarding and not rigid Neuro General: patient oriented x3 and moves all extremities Cranial nerves: Yes Equal, round and reactive pupils present Cognition (Neuro): normal cognition Motor exam (neuro): 5/5 motor strength present throughout Sensory Exam: Normal double simultaneous stimulation for sensation Coordination: [id number] test normal Extrem General: Yes normal to inspection, Yes full ROM and Yes capillary refill normal Psych Appearance: grossly normal Mental Status: mental status grossly normal Affect: normal affect Attitude: cooperative Thought process: Normal thought process present Thought content: Normal thought content present Insight: Good insight present (Psych) Course Course Course Narrative: RME- 37 year old female presents for evaluation of a cold, and chest pain with coughing. She states her symptoms started 3 weeks ago and she was previously seen by her PCP. Her son is here with a cough and fever. Plan for EKG and viral swab and chest x-ray. Medications Administered Discontinued Medications Generic Name Dose Route Start Last Admin Trade Name Lindsay PRN Reason Stop Dose Admin Al Hydroxide/Mg Hydroxide 15 ml 03/02/23 15:17 03/02/23 15:44 Magnesium Hydrox/Alum Hydrox 30 Ml Oral.Susp PO 03/02/23 15:18 15 ml ONCE ONE Administration Omeprazole 20 mg 03/02/23 15:17 03/02/23 15:43 Omeprazole 20 Mg Capsule.Dr PO 03/02/23 15:18 20 mg ONCE ONE Administration Medical Decision Making Medical Decision Making [facility] Narrative: Patient is a 37 year old assigned female at with a history of tendonitis presenting to the emergency department today with chest burning after coughing. Patient's physical exam was unremarkable. Patient's EKG was unremarkable. Patient's chest x-ray showed no acute process. I explained my physical exam findings as well as all test results to the patient. I answered all questions asked by the patient. I stressed the importance of the patient taking her medication as prescribed. I stressed the importance of the patient following up with her primary care provider. I stressed the importance of the patient returning to the emergency department immediately if her symptoms were to worsen or if she were to develop any dizziness, shortness of breath, difficulty breathing, chest pain, blurry vision, loss of vision, nausea, vomiting, abdominal pain, fever, chills, back pain, or any other complaints. Patient verbalized agreement and understanding with this treatment plan and discharge. Differential Diagnosis Differential Diagnoses: The differential diagnosis associated with the presentation includes Cough GERD Independent Interpretation I performed an independent interpretation of an: EKG and Plain X-Ray Interpretation: My interpretation is in agreement with the radiologist's impression of this imaging study. EXAMINATION: XR CHEST CLINICAL INFORMATION: Cough. COMPARISON: 11/22/2022. TECHNIQUE: 2 views of the chest were obtained. FINDINGS: The cardiomediastinal silhouette is normal. There is no focal lung consolidation or pleural effusion. The bony structures and soft tissues are unremarkable. XR/XR chest 2V IMPRESSION: No active cardiopulmonary disease. Dictated By: Raj Ty Signed By: Electronically signed by Raj Ty 03/02/23 1526 Vent. Rate: 101 BPM Atrial Rate: 101 BPM P-R Int: 134 ms QRS Dur: 078 ms QT Int: 342 ms P-R-T Axes: 042 039 013 degrees QTc Int: 443 ms Sinus tachycardia Otherwise normal ECG When compared with ECG of 22-NOV-2022 10:22, No significant change was found DD/ 1408 Radiology Impression Discussion of test interpretation with radiology: I have reviewed the radiologist's reading. Discharge Plan Discharge Clinical Impression: GERD (gastroesophageal reflux disease) Patient Disposition: Home, Self-Care Instructions: Gastroesophageal Reflux Disease (DC) Additional Instructions: Follow up with your primary care provider. Return to the emergency department immediately if your symptoms worsen or if you develop any dizziness, shortness of breath, difficulty breathing, chest pain, blurry vision, loss of vision, nausea, vomiting, abdominal pain, fever, chills, back pain, or any other complaints. Tino un seguimiento con quintero proveedor de atenci?n primaria. Regrese al departamento de emergencias inmediatamente si todd s?ntomas empeoran o si presenta mareos, dificultad para respirar, dificultad para respirar, dolor en el pecho, visi?n borrosa, p?rdida de la visi?n, n?useas, v?mitos, dolor abdominal, fiebre, escalofr?os, dolor de espalda o cualquier otras quejas. Prescriptions: No Action atorvastatin 20 mg tablet 20 mg PO DAILY Advair HFA 230-21 mcg/actuation HFA aerosol inhaler 2 puff PO hydroxyzine HCl 10 mg tablet 10 mg PO BID PRN (Reason: anxiety) sertraline 50 mg tablet 50 mg PO DAILY amitriptyline 25 mg tablet 25 mg PO BEDTIME sumatriptan succinate 100 mg tablet 0 mg PO tramadol 50 mg tablet 50 mg PO Q12H methocarbamol 500 mg tablet 500 mg PO TID PRN (Reason: muscle spasm) 30 Days Qty: 90 0RF metformin 500 mg tablet 500 mg PO BID Referrals: Ale Morales MD [Primary Care Provider] - Stand Alone Forms: Work/School Release Interventions: ED Discharge Assessment Last Done: 03/02/23 15:52 Discharge Date/Time: 03/02/23 15:53 Print Language: Pashto
[2023-03-02] MEDS: Omeprazole 20 MG CAPSULE.DR PO (15:43)
[2023-03-02] MEDS: Magnesium Hydrox/Alum Hydrox 30 ML ORAL.SUSP 15 ML PO (15:44)
== END 2023-03-02 15:53 | disposition home or self-care (01) ==
PROVIDERS: Emergency Provider Emergency Medicine; PCP Family Medicine
DX: K21.9 Gastro-esophageal reflux disease without esophagitis (principal)
CPT/HCPCS: 71046; 93005; 99283; 99284

== ENCOUNTER 2023-03-05 13:21 | Outpatient (AMB) | payer MEDICAID, SELFPAY ==
--- NOTE | 2023-03-05 13:27 | MHC.OFFVISWM ---
Intake VS Expanded 03/05/23 13:38 BP 112/67 Blood Pressure Location Rt brachial Blood Pressure Position Sitting Pulse 92 Pulse Source Pulse Oximeter Temp 97.1 F Temperature Source Temporal Artery Scan Pulse Oximetry 98 Oxygen Delivery Method Room Air Height 5 ft 3 in Weight 194 lb BMI 34.4 Body Fat % 42.5 Body Fat Mass 82.4 Fat Free Mass 111.4 Visceral Fat Rating 9.0 Body Water % 41.2 Body Water Mass 79.8 Muscle Mass/Score 105.6 Basal Metabolic Rate/Score 1,565 Intake Visit Reasons: (OV) F/U SWL + H.Pylori Automatic Thread Winder Required: Yes Automatic Thread Winder Name: office cmi Allergies meloxicam [MELOXICAM] Allergy (Unknown, Verified 03/05/23 13:39) TACHYCARDIA, palpitations morphine [MORPHINE] Allergy (Unknown, Verified 03/05/23 13:39) UNKNOWN, vomiting Sulfa (Sulfonamide Antibiotics) [SULFA (SULFONAMIDE ANTIBIOTICS)] Allergy (Unknown, Verified 03/05/23 13:39) SWELLING Medication List - Last Reconciled 03/05/23 by CORNELIUS Michelle amitriptyline 25 mg PO BEDTIME atorvastatin 20 mg PO DAILY fluticasone propion-salmeterol 230-21 mcg/actuation (Advair HFA) 2 puffs PO hydroxyzine HCl 10 mg PO BID PRN metformin 500 mg PO BID methocarbamol 500 mg PO TID PRN 30 days omeprazole 20 mg PO DAILY sertraline 50 mg PO DAILY sumatriptan succinate 0 mg PO tramadol 50 mg PO Q12H HPI HPI Comments History of Present Illness Details The patient is a pleasant 37 year old female who returns to the clinic for pre-operative surgical weight loss management. They were last seen in the office on 11/14/22, recorded weight at that time was 199.4 pounds, with a BMI of 35.3. Today's weight is 194 pounds and BMI is 34.3. There has been a weight loss of 5.4 pounds since initiating the surgical weight loss program on 11/14/22 with a total body weight loss of 2.7 %. Pre op work up completed as follows: SWL classes:? 10/26 appts: f/u-04/05/23 ? ? RD appts: needs f/u Labs: 11/22/22-ok H. pylori: not done CXR: 12/04/22-nad EK11/22/22-prolonged QT ABD U/S: 03/06/23 UGI: missed The patient reports she has been sick and she had to change her cell phone and hasn't been communicating. She states she has been following the meal plan, was able to re-state it. No longer smoking cigaretts. Current meal plan includes: 2 Orgain shakes ([employer], [employer], [employer]) First shake (2 scoops in 8 oz low fat unsweetened almond milk) at 11am-1pm Second shake (1 scoop in 8 oz low fat unsweetened almond milk) at 2pm-4pm Dinner at 430pm (8 forks of protein and 8 forks of salad/vegetables). 1 protein bar (Fulfil bars at [employer], [employer], or [employer], [employer]) at 7pm-9pm. Drinking 64 oz of water Current exercise plan includes: has body aches from her fibromyalgia and has not been exercising walking outside daily, not tracking calories PFSH Medical History Bipolar 1 disorder Migraines Fibromyalgia Anxiety and depression Asthma Surgical History History of surgery on arm Hx of section Family History Father Family hx of hypertension Maternal Grandfather Family history of diabetes mellitus Maternal Grandmother Family history of diabetes mellitus Mother Diabetes Thyroid condition Sister Thyroid condition High cholesterol Brother No problems noted. Brother No problems noted. Brother No problems noted. Son No problems noted. Son Autism Social History Alcohol intake: never Patient Tobacco Use Status: Former Tobacco user Current occupational status: unemployed Current occupation: rt handed Sexual orientation: Straight/Heterosexual Gender identity: Female Physical Exam Vital Signs: Last Vital Signs Temp 97.1 F 03/05/23 13:38 Pulse 92 03/05/23 13:38 BP 112/67 03/05/23 13:38 Pulse Ox 98 03/05/23 13:38 Oxygen Delivery Method Room Air 03/05/23 13:38 BMI result Body Mass Index 34.4 Assessment & Plan Assessment & Plan (1) Obesity (BMI 30-39.9): Code(s): E66.9 - Obesity, unspecified Plan: change meal plan to : 2 [employer] shakes ([employer], [employer], [employer]) First shake (1 scoop in 8 oz low fat unsweetened almond milk) at 11am-1pm Second shake (1 scoop in 8 oz low fat unsweetened almond milk) at 2pm-4pm Dinner at 430pm (8 forks of protein and 8 forks of salad/vegetables). Meal to include lean meat (beef, fish, pork, turkey, chicken), cooked vegetables or a salad with olive oil and/or fruits (berries, pears, apples, kiwi). Avoid salt, breads, potatoes, rice, pasta, desserts. 1 protein bar (Fulfil bars at [employer], [employer], or [employer], [employer]) at 7pm-9pm. Discussed need for increased exercise and an expected 8 pound loss by next appt RTC 1 month Needs and will re-schedule UGI, RD Will do H Pylori today Reminded of US tomorrow Coding Level of Care Code Est Pt Level 3 (14934) Diagnoses Obesity (BMI 30-39.9) E66.9
[2023-03-05 13:38] VITALS: BP 112/67; PULSE 92; TEMP 36.2; O2SAT 98; BMI 34.4
== END 2023-03-05 14:10 | disposition home or self-care (01) ==
PROVIDERS: PCP Family Medicine; Visit Provider Physician Assistant Surgical
DX: E66.9 Obesity, unspecified (principal)
CPT/HCPCS: 99213

== ENCOUNTER → 2023-03-05 13:21 | Outpatient (BNVA) | payer MEDICAID, SELFPAY | PROVIDERS: PCP Family Medicine; Visit Provider Physician Assistant Surgical | DX: Z11.0 Encounter for screening for intestinal infectious diseases (principal); E66.9 Obesity, unspecified; Z68.34 Body mass index [BMI] 34.0-34.9, adult | CPT/HCPCS: 83013; 99211; 99212 ==

== ENCOUNTER 2023-03-05 19:24 | Outpatient (REF) | payer MEDICAID, SELFPAY ==
[2023-03-07 14:37] LABS: H Pylori Breath Test Negative (Negative)
== END 2023-03-05 19:25 | disposition home or self-care (01) ==
LOC: HO.LNP 19:24
PROVIDERS: Visit Provider Physician Assistant Surgical
DX: E66.9 Obesity, unspecified (principal); Z11.0 Encounter for screening for intestinal infectious diseases
CPT/HCPCS: 83013

== ENCOUNTER 2023-03-06 08:56 | Outpatient (REF) | payer MEDICAID, SELFPAY ==
--- NOTE | ~2023-03-06 | US_ITS ---
EXAMINATION: US COMPLETE ABDOMEN WITH LIVER ELASTOGRAPHY CLINICAL INFORMATION: Obesity. COMPARISON: CT abdomen and pelvis dated 09/14/2017. TECHNIQUE: Real-time imaging of the abdominal viscera. Noninvasive ultrasound liver fibrosis assessment is performed using Ruthann ElastPQ point quantification shear wave elastography (2D-SWE) with a C5-2 MHz transducer. Multiple elastography samples are obtained. FINDINGS: PANCREAS: Normal. The visualized pancreatic head and body are normal in appearance. The remainder of the pancreas is obscured from visualization by the overlying bowel gas. ABDOMINAL AORTA: The proximal, middle, and distal aortic segments are normal in caliber. INFERIOR VENA CAVA: Visualized portions are normal. LIVER: The liver demonstrates normal size, contour and increased echogenicity. No focal lesion or intrahepatic biliary duct dilatation. The right lobe measures 16.3 cm in length. The left lobe measures 11.9 cm in length. Portal flow is towards the liver (hepatopetal). Shear wave liver elastography median stiffness is 1.50 m/s (reference: normal median stiffness is 1.3 m/s or less). IQR/median stiffness to assess sampling precision is 0.13 (reference: good quality data set is IQR/median stiffness of 0.15 or less). GALLBLADDER: Normal. The gallbladder is physiologically distended without evidence of stones, sludge, polyps, wall thickening or pericholecystic fluid. COMMON BILE DUCT: Normal in caliber measuring 0.3 cm in diameter. RIGHT KIDNEY: Normal. No hydronephrosis. No renal calculi or focal parenchymal lesions. The kidney measures 12.0 cm in maximum dimension. LEFT KIDNEY: Normal. No hydronephrosis. No renal calculi or focal parenchymal lesions. The kidney measures 11.6 cm in maximum dimension. SPLEEN: Normal. The spleen measures 12.9 cm in maximum dimension. FREE FLUID: None. US/US abdomen comp w elastography IMPRESSION: 1. There is generalized increase in hepatic echotexture, consistent with fatty infiltration or hepatocellular disease. Please correlate clinically. No focal hepatic mass or intrahepatic biliary dilatation is seen. 2. Liver elastography: In the absence of other known clinical signs, measurements rule out compensated advanced chronic liver disease. If there are known clinical signs, further testing may be needed for confirmation. REFERENCE: Society of Radiologists in Ultrasound Liver Stiffness Thresholds (2020): LIVER STIFFNESS THRESHOLDS: *Liver Stiffness equal or less than 1.3 m/s: High probability of being normal. *Liver Stiffness less than 1.7 m/s: In the absence of other known clinical signs, rules out compensated advanced chronic liver disease. *Liver Stiffness 1.7-2.1 m/s: Suggestive of compensated advanced chronic liver disease but need further test for confirmation. *Liver Stiffness over 2.1 m/s: Rules in compensated advanced chronic liver disease. *Liver Stiffness over 2.4 m/s: Suggestive of clinically significant portal hypertension. QUALITY OF DATA SET: *IQR/Median value equal or less than 0.15 implies a quality data set. *IQR/Median value over 0.15 implies a poor quality data set. SIGNIFICANT CHANGE FROM PRIOR EXAM: Significant change if liver stiffness measurement is 10% or greater from prior exam. OTHER CONSIDERATIONS: The stage of liver fibrosis may be overestimated in the setting of acute hepatitis, liver inflammation, elevated liver function tests, hepatic vascular congestion, obstructive cholestasis, non-fasting state, and infiltrative diseases such as amyloidosis and lymphoma. In some patients with NAFLD, the liver stiffness thresholds for compensated advanced chronic liver disease may be lower. In causes other than viral hepatitis and NAFLD, liver stiffness thresholds are not well established.
== END 2023-03-06 08:57 | disposition home or self-care (01) ==
LOC: HO.US 08:56
PROVIDERS: PCP Family Medicine; Visit Provider Physician Assistant Surgical
DX: E66.9 Obesity, unspecified (principal)
CPT/HCPCS: 76705; 76981

== ENCOUNTER 2023-03-26 09:45 | Outpatient (AMB) | payer OTHER, SELFPAY ==
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
== END 2023-03-26 10:30 | disposition home or self-care (01) ==
PROVIDERS: PCP Family Medicine; Visit Provider Counselor Mental Health
DX: F31.9 Bipolar disorder, unspecified (principal)
CPT/HCPCS: 90834

== ENCOUNTER → 2023-03-26 09:45 | Outpatient (BNVA) | payer MEDICAID, SELFPAY | PROVIDERS: PCP Family Medicine; Visit Provider Counselor Mental Health ==

== ENCOUNTER 2023-04-15 10:26 | Emergency (ER) | payer MEDICAID, SELFPAY ==
[2023-04-15 10:43] VITALS: BP 125/77; PULSE 111; RESP 16; TEMP 36.8; O2SAT 98; BMI 31.3
[2023-04-15 11:22] LABS: IDNOW Serial# 08D9AD1C; Strep A Nucleic Acid Negative (Negative)
[2023-04-15 11:31] LABS: Influenza A PCR NEGATIVE (Negative); Influenza B PCR NEGATIVE (Negative); Resp Syncy Virus RNA Qual PCR NEGATIVE (Negative); SARS COV2 PCR INHOUSE NEGATIVE (Negative)
--- NOTE | 2023-04-15 12:44 | ED_ITS ---
HPI - General Adult General Chief complaint: Upper Respiratory Symptoms Stated complaint: Headache, sore throat Time Seen by Provider: 04/15/23 12:44 Source: patient Mode of arrival: ambulatory Limitations: no limitations History of Present Illness HPI narrative: 37 year old female with pmhx significant for bipolar 1 disorder, anxiety, depression, fibromyalgia, migraines, asthma presents to the ED today for evalu ation of sore throat and fever x3 days. Reports sore throat gradually worsening over the last 3 days with painful swallowing. Subjective fevers at home, no documented temperature. Reports sick contacts at home with similar symptoms. Has not been taking anything at home for the pain. Denies difficulty swallowing. Denies chills, rash, headache, ear pain, eye pain, cough, chest pain, shortness of breath, wheezing, nausea/vomiting, diarrhea/constipation. Related Data Home Medications Medication Instructions Recorded Confirmed amitriptyline 25 mg tablet 25 mg PO BEDTIME 08/26/21 03/05/23 atorvastatin 20 mg tablet 20 mg PO DAILY 08/26/21 03/05/23 fluticasone propionate 230 2 puff PO 08/26/21 03/05/23 mcg-salmeterol 21 mcg/actuation HFA inhaler (Advair HFA) hydroxyzine HCl 10 mg tablet 10 mg PO BID PRN anxiety 08/26/21 03/05/23 sertraline 50 mg tablet 50 mg PO DAILY 08/26/21 03/05/23 sumatriptan succinate 100 mg tablet 0 mg PO 10/03/22 03/05/23 tramadol 50 mg tablet 50 mg PO Q12H 10/03/22 03/05/23 metformin 500 mg tablet 500 mg PO BID 11/14/22 03/05/23 omeprazole 20 mg capsule,delayed 20 mg PO DAILY 03/05/23 03/05/23 release Previous Rx's Medication Instructions Recorded methocarbamol 500 mg tablet 500 mg PO TID PRN muscle spasm 30 10/06/22 days #90 tabs penicillin V potassium 500 mg 500 mg PO BID 10 days #20 tabs 04/15/23 tablet Allergies Allergy/AdvReac Type Severity Reaction Status Date / Time meloxicam [MELOXICAM] Allergy Unknown TACHYCARDIA, Verified 04/15/23 10:43 palpitations morphine [MORPHINE] Allergy Unknown UNKNOWN, Verified 04/15/23 10:43 vomiting Sulfa (Sulfonamide Allergy Unknown SWELLING Verified 04/15/23 10:43 Antibiotics) [SULFA (SULFONAMIDE ANTIBIOTICS)] Review of Systems Review of Systems: Constitutional: No fever, chills, fatigue, night sweats, weight changes ENT/Mouth: No ear pain, hearing loss, nasal congestion, sinus pain, rhinorrhea, +sore throat Eyes: No eye pain, swelling, redness, vision changes, discharge Cardio: No chest pain, palpitations, DUMAS, orthopnea, peripheral edema Pulm: No SOB, cough, sputum, wheezing, dyspnea, hemoptysis GI: No nausea, vomiting, hematemesis, abdominal pain, diarrhea, constipation, hematochezia, melena : No irregular bleeding, dysuria, frequency, urgency, hesitancy, hematuria, flank pain, urinary flow changes, urinary incontinence or retention MSK: No back pain, neck pain, joint pain, myalgias Skin: No lesions, rashes Neuro: No weakness, numbness, paresthesias, LOC, dizziness, headache All other systems reviewed and are negative. [facility] Past Medical History Attestation statement: The following information was validated with the patient. Source: old records reviewed and nursing notes reviewed Medical History Bipolar 1 disorder Migraines Fibromyalgia Anxiety and depression Asthma Surgical History History of surgery on arm Hx of section Family History Family History Father Family hx of hypertension Maternal Grandfather Family history of diabetes mellitus Maternal Grandmother Family history of diabetes mellitus Mother Diabetes Thyroid condition Sister Thyroid condition High cholesterol Brother No problems noted. Brother No problems noted. Brother No problems noted. Son No problems noted. Son Autism Social History Alcohol intake: never Patient Tobacco Use Status: Former Tobacco user Smoked in Last 30 Days: No Use of substances other than those prescribed or required for medical reasons: No Advance Directives: No Advance Directives Information Provided: Yes Patient : No Current occupational status: unemployed Current occupation: rt handed Sexual orientation: Straight/Heterosexual Gender identity: Female Physical Exam ED Vital Signs: Vital Signs - 24 hr 04/15/23 10:43 Temperature 98.2 F Pulse Rate 111 H Respiratory Rate 16 Blood Pressure 125/77 Pulse Oximetry 98 Oxygen Delivery Method Room Air BMI result Body Mass Index 31.3 Initially tachycardic. On repeat now normalized. Const General: cooperative, no acute distress, alert and awake Orientation/consciousness: patient oriented x3 Limitations: no limitations HENMT Other: + posterior oropharynx erythematous. No edema. There are left tonsillar exudates. Uvula is midline. No peritonsillar masses. Controlling secretions and speaking complete sentences. + no cervical lymphadenopathy Head: Yes normal to inspection Ears: hearing grossly normal bilaterally, external ears normal, TM's normal bilaterally, EAC's normal, mastoids normal and no periauricular adenopathy General nose exam: Normal external nose present Mouth: Normal oral and palatal mucosa present Eyes General: appearance normal, both eyes and all related structures Conjunctivae: conjunctivae normal Sclerae: sclerae normal Pupils: Equal, round and reactive pupils present Neck Neck: Yes normal visual inspection and Yes no lymphadenopathy Resp Effort & Inspection: normal respiratory effort, able to speak in complete sentences and no respiratory distress Auscultation: clear to auscultation bilaterally Cardio Rate: regular rate Rhythm: regular rhythm Heart sounds: S2 normal heart sound present Peripheral pulses: radial pulses present GI Inspection: Yes normal to inspection Palpation (GI): Soft to palpation, nontender and no splenomegaly Skin General skin exam: no rashes or lesions noted Neuro General: patient oriented x3, gait normal and moves all extremities Cranial nerves: Yes Equal, round and reactive pupils present Extrem General: Yes normal to inspection, Yes full ROM and Yes capillary refill normal Course Course Course Narrative: 1253-- serology negative for COVID, flu, RSV, strep throat. Given tonsillar exudates to left tonsil, will treat for strep throat. Advised patient to complete the entire course of antibiotics and take Tylenol and ibuprofen as needed for body aches or fevers. Discussed results with patient along with return precautions. All questions answered at this time. Patient is agreeable with disposition and stable for discharge. Medical Decision Making Medical Decision Making [facility] Narrative: 37 year old female with pmhx significant for bipolar 1 disorder, anxiety, depression, fibromyalgia, migraines, asthma presents to the ED today for evaluation of sore throat and fever x3 days. Vital signs initially notable for tachycardia, now normalized. She is nontoxic appearing and in no acute distress. Posterior oropharynx with erythema, no edema. There are left tonsillar exudates. Uvula midline. No peritonsillar masses. Controlling secretions and speaking complete sentences. Lungs CTA bilaterally. No rashes noted. Clinical concern for strep throat, viral syndrome, mono. 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 Serology ordered in triage. Plan to review in re-evaluate patient. Differential Diagnosis Differential Diagnoses: The differential diagnosis associated with the presentation includes As above. Admission/Observation Not indicated. Lab Data MDM Lab Attestation statement: I reviewed the patient's lab results. As above. Labs: Lab Results 04/15/23 Range/Units 10:47 Influenza Type A (PCR) NEGATIVE (Negative) Influenza Type B (PCR) NEGATIVE (Negative) RSV RNA Qual (PCR) NEGATIVE (Negative) SARS-CoV-2 RNA (RT-PCR) NEGATIVE (Negative) S. pyogenes GrpA JJ Negative (Negative) External Record Review External record reviewed: Inpatient record, Office record, Outpatient record, Prior outpatient labs, Prior outpatient radiology, Primary care record and Outside ED record Prescription Management I considered prescription management with: Pain Medication and Antibiotic Critical Care Time Critical Care Time Critical Care Time: No Discharge Plan Discharge Clinical Impression: Strep throat Patient Disposition: Home, Self-Care Instructions: Pharyngitis (ED), Strep Throat (ED) Additional Instructions: You tested negative for COVID, flu, RSV, strep throat today. Your symptoms are consistent with strep throat and thus you will be treated. Penicillin is an antibiotic that has been sent to your pharmacy. Take this twice daily for the next 10 days to treat strep throat. Do not stop taking these antibiotics early or miss any doses as this may cause infection to worsen or return. You may also purchased [id number] Chloraseptic spray to numb your throat. Take Tylenol and ibuprofen as needed for body aches or fevers. Make sure to change out your toothbrush as this contains bacteria. Strep throat is contagious. If anyone else in her household is exhibiting the symptoms, please advise them to come to the emergency department, urgent care, or see their primary care provider for treatment. Follow-up with your primary care provider as needed. If symptoms persist or worsen despite treatment please return to the emergency department. In the case of an emergency call 911. Prescriptions: New penicillin V potassium 500 mg tablet 500 mg PO BID 10 Days Qty: 20 0RF No Action atorvastatin 20 mg tablet 20 mg PO DAILY Advair HFA 230-21 mcg/actuation HFA aerosol inhaler 2 puff PO hydroxyzine HCl 10 mg tablet 10 mg PO BID PRN (Reason: anxiety) sertraline 50 mg tablet 50 mg PO DAILY amitriptyline 25 mg tablet 25 mg PO BEDTIME sumatriptan succinate 100 mg tablet 0 mg PO tramadol 50 mg tablet 50 mg PO Q12H omeprazole 20 mg capsule,delayed release(DR/EC) 20 mg PO DAILY methocarbamol 500 mg tablet 500 mg PO TID PRN (Reason: muscle spasm) 30 Days Qty: 90 0RF metformin 500 mg tablet 500 mg PO BID Referrals: Ale Morales MD [Primary Care Provider] - Stand Alone Forms: Work/School Release
[2023-04-15 13:16] VITALS: PULSE 89; O2SAT 100
== END 2023-04-15 13:28 | disposition home or self-care (01) ==
PROVIDERS: Emergency Provider Emergency Medicine; PCP Family Medicine
DX: J02.0 Streptococcal pharyngitis (principal); R51.9 Headache, unspecified; J02.9 Acute pharyngitis, unspecified; R50.9 Fever, unspecified; Z20.822 Contact with and (suspected) exposure to COVID-19; Z20.828 Contact with and (suspected) exposure to other viral communicable diseases; Z79.899 Other long term (current) drug therapy
CPT/HCPCS: 0241U; 87651; 99283; 99284

== ENCOUNTER 2023-04-23 11:45 | Outpatient (AMB) | payer OTHER, SELFPAY ==
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
== END 2023-04-23 12:30 | disposition home or self-care (01) ==
LOC: HO.HBST 12:43
PROVIDERS: PCP Family Medicine; Visit Provider Counselor Mental Health
DX: F31.9 Bipolar disorder, unspecified (principal)
CPT/HCPCS: 90834

== ENCOUNTER → 2023-04-23 11:45 | Outpatient (BNVA) | payer MEDICAID, SELFPAY | PROVIDERS: PCP Family Medicine; Visit Provider Counselor Mental Health ==

== ENCOUNTER 2023-05-08 11:05 | Outpatient (REF) | payer MEDICAID, SELFPAY ==
[2023-05-08 12:28] LABS: Hematocrit 42.1 % (37.0-47.0); Hemoglobin 13.4 g/dl (12.0-16.0); Mean Corpuscular HGB Conc 31.8 g/dl (31.0-35.0); Mean Corpuscular Hemoglobin 27.2 pg (27.0-33.0); Mean Corpuscular Volume 85.4 fL (80.0-98.0); Mean Platelet Volume 12.7 fL (9.4-12.3); Platelet Count 208 X10*3/uL (160-400); Red Blood Count 4.93 X10*6/uL (4.20-5.50); Red Cell Distribution Width 13.7 % (11.0-16.0); White Blood Count 4.6 X10*3/uL (4.8-10.8)
[2023-05-08 13:30] LABS: HCG Quantitative < 2 mIU/mL; TSH reflex Free T4 3.31 uIU/mL (0.32-4.0)
[2023-05-08 16:27] LABS: CT PCR NOT DETECTED (Not Detect.); NG PCR NOT DETECTED (Not Detect.)
[2023-05-10 04:59] LABS: Prolactin 5.4 ng/mL
== END 2023-05-08 11:06 | disposition home or self-care (01) ==
LOC: HO.LAB 11:05
PROVIDERS: PCP Family Medicine; Visit Provider Obstetrics & Gynecology
DX: N93.9 Abnormal uterine and vaginal bleeding, unspecified (principal)
CPT/HCPCS: 0353U; 36415; 81025; 84146; 84443; 84702; 85027; 87624; 88142; 99202

== ENCOUNTER 2023-05-08 11:05 | Outpatient (AMB) | payer MEDICAID, SELFPAY ==
[2023-05-08 11:07] VITALS: BP 118/70; BMI 31.0
--- NOTE | 2023-05-08 11:07 | A.OFFVIS_ITS ---
Intake Vital Signs 05/08/23 11:07 Height 5 ft 6 in Weight 191 lb 12.835 oz BMI 31.0 BP 118/70 Intake Visit Reasons: PMB/HHC/DO NOT RS Primary School Teacher Required: Yes Primary School Teacher Language: Glove Parts Cutter Name: Whit DOVE Information Interpreted: non-clinical & clinical Tooth Cutter Clutch: Tooth Cutter Clutch Present (Whit DOVE) Accompanied by: Self / Same As Patient Allergies meloxicam [MELOXICAM] Allergy (Unknown, Verified 05/08/23 11:16) TACHYCARDIA, palpitations morphine [MORPHINE] Allergy (Unknown, Verified 05/08/23 11:16) UNKNOWN, vomiting Sulfa (Sulfonamide Antibiotics) [SULFA (SULFONAMIDE ANTIBIOTICS)] Allergy (Unknown, Verified 05/08/23 11:16) SWELLING Is last menstrual period known: Yes Last menstrual period: 04/30/23 HPI HPI Comments History of Present Illness Details The patient is presenting c/o irregular bleeding associated with passage of blood clots and abdominal cramping. it started few months ago and is getting worse no other associated symptoms. Last co testing unknown PENDING SALE TO [facility] Medical History Bipolar 1 disorder Migraines Fibromyalgia Anxiety and depression Asthma Surgical History History of surgery on arm Hx of section Family History Father Family hx of hypertension Maternal Grandfather Family history of diabetes mellitus Maternal Grandmother Family history of diabetes mellitus Mother Diabetes Thyroid condition Sister Thyroid condition High cholesterol Brother No problems noted. Brother No problems noted. Brother No problems noted. Son No problems noted. Son Autism Social History Alcohol intake: never Patient Tobacco Use Status: Former Tobacco user Current occupational status: unemployed Current occupation: rt handed Sexual orientation: Straight/Heterosexual Gender identity: Female Female Reproductive History Menstrual Date of last menstrual period: 04/30/23 Review of Systems Const All systems reviewed & are unremarkable except as noted in HPI and below Card Reports as per HPI Resp Reports as per HPI GI Reports as per HPI and Reports no additional complaints Reports as per HPI Physical Exam Vital Signs: Last Vital Signs BP 118/70 05/08/23 11:07 BMI result Body Mass Index 31.0 Const General: cooperative, healthy appearing and comfortable Chest Chest palpation & inspection: normal inspection of the chest and normal palpation of entire chest wall Breast/axilla inspection: normal inspection of the breasts and normal inspection of the axillae Breast/axilla palpation: normal palpation of the breasts, normal palpation of the axillae and no axillary lymphadenopathy Resp Effort & Inspection: normal respiratory effort Auscultation: clear to auscultation bilaterally Percussion: percussion normal Cardio Palpation: normal PMI Rate: regular rate Rhythm: regular rhythm Heart sounds: no murmurs and no rubs Peripheral pulses: Peripheral pulses 2+ throughout GI Inspection: Yes normal to inspection Palpation (GI): Soft to palpation, nontender, no guarding, not rigid and No hepatosplenomegaly present Percussion: Yes normal to percussion Auscultation: normal bowel sounds Rectal Exam - Female: deferred General: Yes bladder normal to palpation External Female Exam: No lesion Speculum Exam - Vagina: normal appearance of the vagina, normal palpation, normal vaginal discharge and not erythematous Speculum Exam - Cervix: normal appearance of the cervix and normal palpation Bimanual exam- vagina & uterus: normal bimanual exam, normal palpation, uterine size normal, bladder normal to palpation, consistency normal and normal palpation Bimanual Exam- Adnexa, other: normal adnexae, no masses and no tenderness Results AMB Test Urine AMB Test Urine Negative Last Edit by Whit Patel CMA on 11:47 Results Reviewed Results Reviewed: Laboratory Last Values Tst Clinic Negative 05/08/23 11:46 Assessment & Plan Assessment & Plan (1) Abnormal uterine bleeding (AUB): Code(s): N93.9 - Abnormal uterine and vaginal bleeding, unspecified Plan: Co testing done, GC and chlamydia taken CBC, TSH, prolactin, HCG, and pelvic ultrasound ordered. Discussed with the patient the different causes of abnormal bleeding including thyroid disorders, uterine and ovarian pathology, endometrial hyperplasia, carcinoma and other potential causes. Discussed with the patient the work up including CBC (to r/o anemia), TSH, pelvic Ultrasound, endometrial biopsy to r/o endometrial pathology. All questions answered and the patient verbalized understanding. Instructed the patient to schedule an appointment for an endometrial biopsy in 2 weeks. Orders: Orders Prolactin Today N93.9 - Abnormal uterine and vaginal bleeding, unspecified HCG Quantitative Today N93.9 - Abnormal uterine and vaginal bleeding, unspecified US pelvic and transvaginal Today N93.9 - Abnormal uterine and vaginal bleeding, unspecified Pap Smear Today N93.9 - Abnormal uterine and vaginal bleeding, unspecified AMB HCG Urine Test Today Z32.02 - Encounter for test, result negative CT NG by PCR Today N93.9 - Abnormal uterine and vaginal bleeding, unspecified Complete Blood Count no Diff Today N93.9 - Abnormal uterine and vaginal bleeding, unspecified TSH reflex Free T4 Today N93.9 - Abnormal uterine and vaginal bleeding, unspecified Coding Level of Care Code New Pt Level 3 (38586) Diagnoses Abnormal uterine bleeding (AUB) N93.9
== END 2023-05-08 13:47 | disposition home or self-care (01) ==
PROVIDERS: Visit Provider Obstetrics & Gynecology
DX: Z32.02 Encounter for pregnancy test, result negative (principal); N93.9 Abnormal uterine and vaginal bleeding, unspecified
CPT/HCPCS: 99203

== ENCOUNTER 2023-05-08 11:41 | Outpatient (REF) | payer MEDICAID, SELFPAY ==
[2023-05-12 08:58] LABS: HPV mRNA E6/E7 rflx Not Detected (Not Detected)
== END 2023-05-08 11:42 | disposition home or self-care (01) ==
LOC: HO.LNP 11:41
PROVIDERS: Visit Provider Obstetrics & Gynecology
DX: Z12.4 Encounter for screening for malignant neoplasm of cervix (principal); Z11.51 Encounter for screening for human papillomavirus (HPV); N93.9 Abnormal uterine and vaginal bleeding, unspecified
CPT/HCPCS: 87624; 88142

== ENCOUNTER 2023-05-15 12:56 | Outpatient (AMB) | payer MEDICAID, SELFPAY ==
--- NOTE | 2023-05-15 13:18 | A.OFFVIS_ITS ---
Intake VS Expanded 05/15/23 13:26 BP 123/67 Blood Pressure Location Rt brachial Blood Pressure Position Sitting Pulse 104 H Pulse Source Pulse Oximeter Temp 98.2 F Temperature Source Temporal Artery Scan Pulse Oximetry 98 Oxygen Delivery Method Room Air Height 5 ft 3 in Weight 188 lb 6.4 oz BMI 33.4 Body Fat % 43.1 Body Fat Mass 81.2 Fat Free Mass 107.2 Visceral Fat Rating 9.0 Body Water % 40.7 Body Water Mass 76.8 Muscle Mass/Score 101.6 Basal Metabolic Rate/Score 1,513 Intake Visit Reasons: (OV) F/U SWL Shirt Creaser Required: Yes Allergies meloxicam [MELOXICAM] Allergy (Unknown, Verified 05/15/23 13:20) TACHYCARDIA, palpitations morphine [MORPHINE] Allergy (Unknown, Verified 05/15/23 13:20) UNKNOWN, vomiting Sulfa (Sulfonamide Antibiotics) [SULFA (SULFONAMIDE ANTIBIOTICS)] Allergy (Unknown, Verified 05/15/23 13:20) SWELLING Medication List - Last Reconciled 05/15/23 by CORNELIUS Michelle amitriptyline 25 mg PO BEDTIME atorvastatin 20 mg PO DAILY fluticasone propion-salmeterol 230-21 mcg/actuation (Advair HFA) 2 puffs PO hydroxyzine HCl 10 mg PO BID PRN metformin 500 mg PO BID methocarbamol 500 mg PO TID PRN 30 days omeprazole 20 mg PO DAILY penicillin V potassium 500 mg PO BID 10 days sertraline 50 mg PO DAILY sumatriptan succinate 0 mg PO tramadol 50 mg PO Q12H HPI HPI Comments History of Present Illness Details The patient is a pleasant 37 year old female who returns to the clinic for pre-operative surgical weight loss management. They were last seen in the office on 03/05/2023, recorded weight at that time was 194 pounds, with a BMI of 34.4. Today's weight is 188.4 pounds and BMI is 33.4. There has been a weight loss of 11 pounds since initiating the surgical weight loss program on 11/14/2022 with a total body weight loss of 5.5 %. Pre op work up completed as follows: SWL classes:? 10/26 appts: f/u-04/05/23 ? ? RD appts: needs f/u Labs: 11/22/22-ok H. pylori: 03/05/23-neg CXR: 12/04/22-nad EK11/22/22-prolonged QT ABD U/S: 03/06/23 UGI: missed The patient reports she has been struggling with anxiety as her therapist has left for [place] and she has not yet been assigned a new one. Current meal plan includes: 2 Orgain shakes ([employer], [employer], [facility]) First shake (1 scoop in 8 oz low fat unsweetened almond milk) at 11am-1pm Second shake (1 scoop in 8 oz low fat unsweetened almond milk) at 2pm-4pm Dinner at 430pm (8 forks of protein and 8 forks of salad/vegetables). 1 protein bar (Fulfil bars at [employer], [facility], or [employer], [employer]) at 7pm-9pm. Current exercise plan includes: daily, walking outside , stationary bike, 200-300 calories on the bike, [facility] Medical History Bipolar 1 disorder Migraines Fibromyalgia Anxiety and depression Asthma Surgical History History of surgery on arm Hx of section Family History Father Family hx of hypertension Maternal Grandfather Family history of diabetes mellitus Maternal Grandmother Family history of diabetes mellitus Mother Diabetes Thyroid condition Sister Thyroid condition High cholesterol Brother No problems noted. Brother No problems noted. Brother No problems noted. Son No problems noted. Son Autism Social History Alcohol intake: never Patient Tobacco Use Status: Former Tobacco user Current occupational status: unemployed Current occupation: rt handed Sexual orientation: Straight/Heterosexual Gender identity: Female Physical Exam Const General: healthy appearing and no acute distress Resp Effort & Inspection: normal respiratory effort Auscultation: clear to auscultation bilaterally Cardio Rate: regular rate Rhythm: regular rhythm GI Auscultation: normal bowel sounds Extrem General: Yes normal to inspection Assessment & Plan Assessment & Plan (1) Obesity (BMI 30-39.9): Code(s): E66.9 - Obesity, unspecified Plan: change meal plan: 2 Orgain shakes ([employer], [employer], [facility]) First shake (1 scoop in 8 oz low fat unsweetened almond milk) at 11am-1pm Second shake (1 scoop in 8 oz low fat unsweetened almond milk) at 2pm-4pm Dinner at 430pm (6 forks of protein and 6 forks of salad/vegetables). 1 protein bar (Fulfil bars at [employer], [employer], or [employer], [employer]) at 7pm-9pm. Patient seems to be making slow progress, wants to continue in the program. Encouraged to continue with exercise on a daily basis and tracking calories. R eminded to text me weekly her weight. Will reschedule follow-up with Heide as well as reschedule upper GI. Coding Level of Care Code Tele Est Pt Level 3 (44113) Diagnoses Obesity (BMI 30-39.9) E66.9
[2023-05-15 13:26] VITALS: BP 123/67; PULSE 104; TEMP 36.8; O2SAT 98; BMI 33.4
== END 2023-05-15 13:47 | disposition home or self-care (01) ==
PROVIDERS: PCP Family Medicine; Visit Provider Physician Assistant Surgical
DX: E66.9 Obesity, unspecified (principal); Z68.33 Body mass index [BMI] 33.0-33.9, adult
CPT/HCPCS: 99213

== ENCOUNTER → 2023-05-15 12:56 | Outpatient (BNVA) | payer MEDICAID, SELFPAY | PROVIDERS: PCP Family Medicine; Visit Provider Physician Assistant Surgical ==

== ENCOUNTER 2023-06-14 10:59 | Outpatient (AMB) | payer MEDICAID, SELFPAY ==
--- NOTE | 2023-06-14 11:06 | A.OFFVIS_ITS ---
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 Morales/Chest pain Intake Note: NPV Crayon Sawyer Required: No Crayon Sawyer Name: Kristen [id number] Accompanied by: Self / Same As Patient Allergies meloxicam [MELOXICAM] Allergy (Unknown, Verified 06/14/23 11:09) TACHYCARDIA, palpitations morphine [MORPHINE] Allergy (Unknown, Verified 06/14/23 11:09) UNKNOWN, vomiting Sulfa (Sulfonamide Antibiotics) [SULFA (SULFONAMIDE ANTIBIOTICS)] Allergy (Unknown, Verified 06/14/23 11:09) SWELLING Medication List - Last Reconciled 06/14/23 by Serafin Horton MD atorvastatin 20 mg PO DAILY fluticasone propion-salmeterol 230-21 mcg/actuation (Advair HFA) 2 puffs PO metformin 500 mg PO BID omeprazole 20 mg PO DAILY sertraline 50 mg PO DAILY sumatriptan succinate 100 mg PO tramadol 50 mg PO Q12H HPI HPI Comments History of Present Illness Details Cherri is here for consultation regarding various symptoms including chest pain, shortness of breath and palpitations. There is no history of any coronary disease myocardial infarction or cardiomyopathy or in fact any other cardiac issues. She states she is prediabetic. She can get chest pain somewhat randomly. Can happen at rest and can also happen with exertion. Hence no sp ecific patterns. She also gets short of breath activity. Episodes of chest fluttering. [facility] Medical History Bipolar 1 disorder Migraines Fibromyalgia Anxiety and depression Asthma Surgical History History of surgery on arm Hx of section Family History Father Family hx of hypertension Maternal Grandfather Family history of diabetes mellitus Maternal Grandmother Family history of diabetes mellitus Mother Diabetes Thyroid condition Sister Thyroid condition High cholesterol Brother No problems noted. Brother No problems noted. Brother No problems noted. Son No problems noted. Son Autism Social History Alcohol intake: never Patient Tobacco Use Status: Former Tobacco user Current occupational status: unemployed Current occupation: rt handed Sexual orientation: Straight/Heterosexual Gender identity: Female Review of Systems Const Denies chills, Denies daytime sleepiness, Denies fatigue, Denies fever(s), Denies frequent falls, Denies night sweats, Denies snoring, Denies weakness, Denies weight gain and Denies weight loss Eyes Denies loss of vision ENT Denies dizziness and Denies hearing loss Card Denies chest pain, Denies chest pain with activity, Denies syncope, Denies rapid heart rate, Denies edema, Denies claudication, Denies leg edema, Denies lightheadedness, Denies palpitations and Denies orthopnea Resp Denies cough, Denies excessive phlegm production, Denies snoring and Denies wheezing GI Denies abdominal pain, Denies hematochezia, Denies change in bowel habits, Denies change in stool character, Denies heartburn, Denies nausea and Denies vomiting Denies hematuria, Denies urinary frequency and Denies dysuria Musc Denies arthralgias, Denies muscle weakness, Denies numbness and Denies tingling Skin/Breast Denies nail changes and Denies rash Neuro Denies Abnormal speech present, Denies dizziness, Denies syncope, Denies frequent falls, Denies loss of vision, Denies memory loss, Denies numbness, Denies tingling and Denies weakness Psych Denies depression and Denies memory loss Endo Denies fatigue and Denies palpitations Aller/Immun Denies wheezing Physical Exam Vital Signs: Last Vital Signs Pulse 110 H 06/14/23 11:10 BP 110/62 06/14/23 11:10 BMI result Body Mass Index 33.6 Const General: comfortable and no acute distress Orientation/consciousness: patient oriented x3 HEENT Other: Unremarkable Head: Yes normal to inspection Neck Neck: Yes normal visual inspection Chest Chest palpation & inspection: normal inspection of the chest Resp Auscultation: clear to auscultation bilaterally Cardio Palpation: normal PMI Heart sounds: S1 normal heart sound present, S2 normal heart sound present, no gallops, no murmurs and no rubs GI Palpation (GI): Soft to palpation Back/Spine/Pelvis Other: unremarkable Skin General skin exam: no rashes or lesions noted Neuro General: patient oriented x3 Speech: No Abnormal speech present Extrem General: Yes normal to inspection Psych Mental Status: mental status grossly normal Assessment & Plan Assessment & Plan (1) Precordial chest pain: Code(s): R07.2 - Precordial pain (2) SOB (shortness of breath): Code(s): R06.02 - Shortness of breath (3) Palpitations: Code(s): R00.2 - Palpitations Plan EKG with sinus tachycardia at 101/Min; nonspecific ST-T changes. Normal AR and corrected QT. She needs comprehensive workup including echocardiogram, stress test and Holter. Once these are completed and reviewed, we can see her back in follow-up. Orders: Orders CA echo transthoracic complete Today R00.2 - Palpitations, R06.02 - Shortness of breath, R07.2 - Precordial pain NM cardiolite stress test Today R07.2 - Precordial pain CA stress test Today R07.2 - Precordial pain ECG holter monitor 24 hour Today R00.2 - Palpitations Coding Level of Care Code New Pt Level 4 (30025) Diagnoses Precordial chest pain R07.2 SOB (shortness of breath) R06.02 Palpitations R00.2
[2023-06-14 11:10] VITALS: BP 110/62; PULSE 110; BMI 33.6
== END 2023-06-14 11:31 | disposition home or self-care (01) ==
PROVIDERS: PCP Family Medicine; Referring Provider Family Medicine; Visit Provider Internal Medicine
DX: R07.2 Precordial pain (principal); R06.02 Shortness of breath; R00.2 Palpitations
CPT/HCPCS: 99204

== ENCOUNTER → 2023-06-14 10:59 | Outpatient (BNVA) | payer MEDICAID, SELFPAY | PROVIDERS: PCP Family Medicine; Visit Provider Internal Medicine | DX: R07.2 Precordial pain (principal); R06.02 Shortness of breath; R00.2 Palpitations | CPT/HCPCS: 99202 ==

== ENCOUNTER 2023-07-10 13:54 | Outpatient (REF) | payer MEDICAID, SELFPAY ==
--- NOTE | ~2023-07-10 | US_ITS ---
EXAMINATION: US PELVIS AND TRANSVAGINAL CLINICAL INFORMATION: Abnormal uterine and vaginal bleeding, last menstrual period 06/24/2023. COMPARISON: Pelvic ultrasound of 06/29/2022. TECHNIQUE: Ultrasound of the pelvis is performed using both transabdominal and transvaginal transducers along with Doppler. Transvaginal imaging is performed due to inadequate visualization transabdominally. FINDINGS: The uterus measures 10.0 x 4.4 cm. No discrete fibroids are appreciated. Nabothian cysts and fluid within the cervix. Endometrial thickness is 9 mm. Left ovary measures 2.6 x 1.2 x 1.7 cm, volume 2.8 mL, is seen only on transabdominal images and is grossly unremarkable. Limited visualization due to bowel gas. Previously identified 3 mm left ovarian echogenic focus is difficult to evaluate the current exam due to severely limited visualization Right ovary measures 3.3 x 2.2 x 2.6 cm, volume 9.8 mL. Right ovarian complex cyst measuring 1.4 x 1.3 x 1.3 cm cyst is mildly complex with a few low-level internal echoes and possible thin septations and was not appreciated on prior exam. Right ovarian 1.2 x 1.5 x 1.3 cm complex cysts is hypoechoic with diffuse internal echoes and possible septations. Diffuse low-level internal echoes and was not appreciated on ultrasound of 06/29/2022. US/US pelvic and transvaginal IMPRESSION: 1. Endometrial thickness is 9 mm. 2. Right ovarian complex cysts measuring up to 1.5 cm. Recommend follow-up ultrasound in 6-8 weeks. 3. Left ovary is seen only on transabdominal images and is grossly unremarkable. Previously identified 3 mm left ovarian echogenic focus is difficult to evaluate the current exam due to severely limited visualization.
== END 2023-07-10 13:55 | disposition home or self-care (01) ==
LOC: HO.US 13:54
PROVIDERS: PCP Family Medicine; Visit Provider Obstetrics & Gynecology
DX: N93.9 Abnormal uterine and vaginal bleeding, unspecified (principal)
CPT/HCPCS: 76830; 76856

== ENCOUNTER → 2023-07-31 12:52 | Outpatient (REF) | payer MEDICAID, SELFPAY ==
--- NOTE | 2023-07-31 12:56 | CA_ITS ---
Transthoracic Echocardiogram Patient (Last, First, Middle): Cherri Ram, Gender: Female Date of : 1985 Age: 37 Procedure Date: 07/31/2023 Procedure Type: Transthoracic Echocardiogram Location: OP Height: 160.02 cm Weight: 85.73 kg BSA: 1.89 m2 Heart Rate: 106 bpm BP: 112 / 62 mmHg Customer Contact Specialist: MONTY Referring MD: Serafin Horton MD Receiving Worker: Dom Harrington MD Symptoms: R07.2 - Precordial pain Study Quality: Adequate ECG Rhythm: Sinus tachycardia Conclusions: - 1. Mildly depressed LV ejection fraction 45-50% by Thomas's method 2. Normal cardiac valvular Dopplers 3. No gross pericardial effusion Findings Left Ventricle Normal left ventricular cavity size. There is normal left ventricular wall thickness. The left ventricular systolic function is mildly decreased. The visually estimated ejection fraction is between 45-50%. Spectral Doppler is indicative of a normal filling pattern. Right Ventricle Normal right ventricular cavity size and systolic function. Atria Both atria are normal in size. Interatrial shunt cannot be excluded. Aortic Valve Normal aortic valve structure and function. There is no aortic valve stenosis. There is no aortic valve regurgitation. Mitral Valve Normal mitral valve structure and function. There is trace mitral valve regurgitation. There is no mitral valve stenosis. Pulmonic Valve The pulmonic valve is likely normal. Tricuspid Valve Normal tricuspid valve structure. Tricuspid regurgitation envelope is inadequate for calculation of right ventricular systolic pressure. Normal right atrial pressure. Great Vessels All visible segments of the aorta are normal in size. The pulmonary artery was not well visualized. There is no dilatation of the ascending aorta. Venous The inferior vena cava is normal in size and collapses greater than 50% with inspiration. Pericardium/Pleural There is no evidence of pericardial effusion. Measurements 2D Linear Measurements IVSd: 0.81 0.6-0.9/0.6-1.0 cm LVIDd: 4.42 3.9-5.3/4.2-5.9 cm LVIDd Index: 2.34 2.4-3.2/2.2-3.1 cm/m2 LVIDs: 3.13 2.0-3.6 cm LVPWd: 0.88 0.7-1.1 cm LA Diam: 3.30 2.7-3.8/3.0-4.0 cm LAIDs Index: 1.75 1.5-2.3 cm/m2 LV Mass: 147.07 67-162/88-224 g LV Mass Index: 77.81 43-95/49-115 g/m2 LVOT Diam: 1.80 3.0+(-)1.3 cm 2D Systolic Function EF 4C: 45.40 >55% EF 2C: 50.50 >55% EF BiP: 47.30 >55% Mitral Valve MV Pk E: 0.65 MV PK A: 0.64 MV Decel Time: 104.00 E/A: 1.00 E'Lateral: 9.36 E'Medial: 6.09 E/E' Med: 10.70 E/E' Lat: 6.90 PHT: 30.00 MVA PHT: 7.33 Decel Mcintosh: 6.23 Aortic Valve AoV Pk Yordy: 1.22 AoV Pk Grad: 6.00 MARLENE: 2.23 LVOT LVOT Pk Yordy: 1.07 LVOT Mn Yordy: 0.75 LVOT VTI: 0.18 LVOT Pk Grad: 5.00 LVOT Mn Grad: 3.00 LVOT Diam: 1.80 LVOT Area: 2.54 Diastolic Function MV Pk E: 0.65 MV Pk A: 0.64 E/A: 1.00 E'Medial: 6.09 E/E' Med: 10.70 E' Laterial: 9.36 E/E' Lat: 6.90 Right Ventricle TAPSE (mm): 12.20 TVS' Yordy: 9.79 Great Vessels Aorta Sinus of Valsalva: 2.70 2.0-3.5 cm Ao Asc: 2.60 2.1-3.4 cm Pulmonary Valve PV Pk Yordy: 0.87 Peak PV Grad: 3.00 Updated in Other Vendor System with Status of Final Dom Harrington MD electronically signed on 08/01/2023 3:30:29 PM with status of Final
== END ==
LOC: HO.CARD 12:52
PROVIDERS: PCP Family Medicine; Visit Provider Internal Medicine
DX: R07.2 Precordial pain (principal); R00.2 Palpitations; R06.02 Shortness of breath
CPT/HCPCS: 93225; 93306

== ENCOUNTER → 2023-07-31 12:56 | Outpatient (BNV) | payer MEDICAID, SELFPAY | PROVIDERS: PCP Family Medicine; Visit Provider Internal Medicine Cardiovascular Disease | DX: R07.2 Precordial pain (principal); R00.2 Palpitations | CPT/HCPCS: 93306 ==

== ENCOUNTER 2023-08-06 11:06 | Outpatient (REF) | payer MEDICAID, SELFPAY ==
[2023-08-06 12:01] LABS: Basophils Percent Auto 0.6 % (0-2); Eosinophils Absolute Auto 0.2 X10*3/uL (0.0-0.4); Eosinophils Percent Auto 4.2 % (0-4); Hematocrit 40.7 % (37.0-47.0); Hemoglobin 13.3 g/dl (12.0-16.0); Imm Gran Pct Auto 1.9 % (0.0-0.4); Lymphocytes Absolute Auto 1.8 X10*3/uL (1.2-4.9); Lymphocytes Percent Auto 33.7 % (20-40); MANUAL DIFF FLAG SCAN; Mean Corpuscular HGB Conc 32.7 g/dl (31.0-35.0); Mean Corpuscular Hemoglobin 27.3 pg (27.0-33.0); Mean Corpuscular Volume 83.4 fL (80.0-98.0); Monocytes Absolute Auto 0.5 X10*3/uL (0.1-1.2); Monocytes Percent Auto 9.4 % (2-11); Neutrophils Absolute Auto 2.6 x10*3/uL (2.0-8.3); Neutrophils Percent Auto 50.2 % (45-73); PLT CLUMP 1; Red Blood Count 4.88 X10*6/uL (4.20-5.50); Red Cell Distribution Width 13.9 % (11.0-16.0); SCAN SMEAR FLAG 1
[2023-08-06 12:02] LABS: White Blood Count 5.2 X10*3/uL (4.8-10.8)
[2023-08-06 12:20] LABS: Estimated Average Glucose 120 mg/dL; Hemoglobin A1c % 5.8 % (<6.0)
[2023-08-06 12:30] LABS: Alanine Aminotransferase 36 U/L (0-31); Albumin Level 4.1 g/dL (3.5-5.0); Alkaline Phosphatase 118 U/L (39-117); Anion Gap 13 (12-20); Aspartate Amino Transferase 22 U/L (5-31); Bilirubin Direct 0.1 mg/dL (0.0-0.5); Bilirubin Total 0.4 mg/dL (0.0-1.0); Blood Urea Nitrogen 11 mg/dL (9-16); Calcium 9.5 mg/dL (8.4-10.2); Carbon Dioxide 25 mmol/L (22-29); Chloride 104 mmol/L (96-108); Cholesterol 146 mg/dL (<200); Estimated Glomerular Filt Rate > 60; Glucose Random 101 mg/dL (60-115); HDL Cholesterol 40 mg/dL (>40); LDL Cholesterol Calculated 55 mg/dL (<100); Potassium 4.1 mmol/L (3.3-5.1); Sodium 138 mmol/L (135-145); Triglycerides 255 mg/dL (<150)
[2023-08-06 13:10] LABS: Mean Platelet Volume 12.8 fL (9.4-12.3); Platelet Count 173 X10*3/uL (160-400)
[2023-08-06 13:11] LABS: SLIDE REVIEW VERIFIED
== END 2023-08-06 11:07 | disposition home or self-care (01) ==
LOC: HO.LAB 11:06
PROVIDERS: PCP Family Medicine; Visit Provider Family Medicine
DX: E66.09 Other obesity due to excess calories (principal); R73.03 Prediabetes; M54.9 Dorsalgia, unspecified; G89.29 Other chronic pain; Z68.32 Body mass index [BMI] 32.0-32.9, adult
CPT/HCPCS: 36415; 80048; 80061; 80076; 83036; 85025

== ENCOUNTER → 2023-08-23 08:38 | Outpatient (REF) | payer MEDICAID, SELFPAY ==
--- NOTE | ~2023-08-23 | NM_ITS ---
Myocardial perfusion study Indication: Precordial chest pain to evaluate for myocardial ischemia Technique: The patient was brought in for a Lexiscan perfusion study on 08/23/2023. Patient performed low-level exercise and was injected 0.4 mg of Lexiscan intravenously. Within a minute of injection, 25 mCi of sestamibi was given intravenously. Images were obtained using the SPECT gamma camera interlaced with the gating device. Images were obtained in supine position. Resting perfusion study was performed on 08/27/2023. Patient was administered 25 mCi of sestamibi intravenously at rest. Images were then obtained in supine position. Images obtained with and without CT attenuation. Total DLP 133 mGy-cm Images were processed with the software and compared side to side in short axis, horizontal long axis and vertical long axis views. Findings: The stress perfusion study showed non attenuated images show normal uptake of radiotracer in all segments of LV myocardium. Attenuation corrected images show mildly reduced uptake in the apex of the LV myocardium.. The gated study shows normal LV systolic function with calculated LVEF of 72%. LV cavity is normal in size. The gated study shows normal systolic wall thickening and contraction of segments. Resting study shows no change in perfusion pattern compared to stress perfusion study. Gating at rest reveals normal systolic wall motion with ejection fraction at 66%. The findings are consistent with likely normal myocardial perfusion. NM/NM cardiolite stress test Impression: 1. Myocardial perfusion imaging study shows likely normal myocardial perfusion 2. Gated LVEF is 72% 3. Transient ischemic dilatation not present EKG is nondiagnostic for ischemia
--- NOTE | 2023-08-23 08:41 | CA_ITS ---
Acquisition Time: 2023-08-23 08:47:47 Total Exercise Time: 00:00:28 Test Indications: CHEST PAIN Medications: METFORMIN ATORVASTATIN Protocol: HERIBERTO Max HR: 136 BPM 74% of Pred: 182 BPM Max BP: 102/068 mmHG Max Work Load: 1.8 METS Exercise stress test exercise 28 sec and had to terminate due to patients request as she couldnt not keep up with the speed of Stage 1 and felt fatigue , with baseline of 4/10 chest pressure. Chest pressure did not change. Test changed to a pharmacolgoical stress test. Pharmacological stress test with Lexiscan injection, while sitting and kicking her legs, with 4/10 chest pressure at baseline which increased to a 7/10 chest pressure, with mild SOB, without arrhythmias, with normotensive response to injeciton, with nondiagnoisitic EKGs. Aminophylline 75mg IVP given to reverse Lexiscan . Chest pressure was 3/10 at end of test. Nuclear images pending. Test reviewed with Dr. Harrington Referred By: Serafin Horton Overread By: Janel Hou
== END ==
LOC: HO.CARD 08:38
PROVIDERS: PCP Family Medicine; Visit Provider Internal Medicine
DX: R07.2 Precordial pain (principal)
CPT/HCPCS: 78452; 93017; A9500; J0280; J2785

== ENCOUNTER → 2023-08-23 08:41 | Outpatient (BNV) | payer MEDICAID, SELFPAY | PROVIDERS: PCP Family Medicine; Visit Provider Nurse Practitioner | DX: R07.2 Precordial pain (principal) | CPT/HCPCS: 78452; 93016; 93018 ==

== ENCOUNTER 2023-08-24 09:02 | Outpatient (REF) | payer MEDICAID, SELFPAY | END 2023-08-24 09:03 | disposition home or self-care (01) | LOC: HO.MRI 09:02 | PROVIDERS: PCP Family Medicine; Visit Provider Family Medicine | DX: Z13.89 Encounter for screening for other disorder (principal) ==

== ENCOUNTER 2023-08-31 09:22 | Outpatient (AMB) | payer MEDICAID, SELFPAY ==
[2023-08-31 09:42] VITALS: BP 110/68; PULSE 89; BMI 32.8
--- NOTE | 2023-08-31 09:42 | A.OFFVIS_ITS ---
Intake Vital Signs 08/31/23 09:42 Height 5 ft 8 in Weight 216 lb 0.848 oz BMI 32.8 BP 110/68 Blood Pressure Location Lt brachial Position Sitting Pulse 89 Intake Visit Reasons: f/u after testing Intake Note: follow up after testing pt feels tired Manufacturing Tech Required: Yes Manufacturing Tech Name: JORGE [id number] Allergies meloxicam [MELOXICAM] Allergy (Unknown, Verified 06/14/23 11:09) TACHYCARDIA, palpitations morphine [MORPHINE] Allergy (Unknown, Verified 06/14/23 11:09) UNKNOWN, vomiting Sulfa (Sulfonamide Antibiotics) [SULFA (SULFONAMIDE ANTIBIOTICS)] Allergy (Unknown, Verified 06/14/23 11:09) SWELLING Medication List - Last Reconciled 08/31/23 by Shyann Garcia, ASSISTANT PROFESSOR SURGICAL TECHNOLOGY-C atorvastatin 20 mg PO DAILY fluticasone propion-salmeterol 230-21 mcg/actuation (Advair HFA) 2 puffs PO metformin 500 mg PO BID omeprazole 20 mg PO DAILY sertraline 50 mg PO DAILY sumatriptan succinate 100 mg PO tramadol 50 mg PO Q12H HPI f/u after testing HPI Details Cherri is a 37-year-old female with past medical history of obesity who has been evaluated for shortness of breath and heart palpitations. She underwent an echocardiogram and nuclear stress test and now presents for follow- up. Holter monitor had been ordered however not completed as of yet. Today she reports that she does have some shortness of breath with activity. She says she is busy caring for her 4-year-old child and does do some routine exercise. She denies PND, orthopnea or edema. Random chest pains at rest. No chest discomfort brought on by activity. She will feel heart palpitations at times. She says it feels like her heart wants to come out of her mouth. No presyncope, syncope, falls. He says they did not call her for the Holter monitor. She does report daytime sleepiness and need to take naps. [facility] Medical History Bipolar 1 disorder Migraines Fibromyalgia Anxiety and depression Asthma Surgical History History of surgery on arm Hx of section Family History Father Family hx of hypertension Maternal Grandfather Family history of diabetes mellitus Maternal Grandmother Family history of diabetes mellitus Mother Diabetes Thyroid condition Sister Thyroid condition High cholesterol Brother No problems noted. Brother No problems noted. Brother No problems noted. Son No problems noted. Son Autism Social History Alcohol intake: never Patient Tobacco Use Status: Former Tobacco user Current occupational status: unemployed Current occupation: rt handed Sexual orientation: Straight/Heterosexual Gender identity: Female Review of Systems Const All systems reviewed & are unremarkable except as noted in HPI and below Reports fatigue ENT Denies dizziness Card Reports chest pain, Reports chest pain at rest, Denies chest pain with activity, Denies syncope, Denies rapid heart rate, Reports dyspnea, Reports dyspnea on exertion, Denies orthopnea and Denies paroxysmal nocturnal dyspnea Resp Reports dyspnea and Reports dyspnea on exertion Musc Reports no additional complaints Neuro Denies dizziness and Denies syncope Endo Reports fatigue Physical Exam Vital Signs: Last Vital Signs Pulse 89 08/31/23 09:42 BP 110/68 08/31/23 09:42 BMI result Body Mass Index 32.8 Const General: cooperative, healthy appearing, comfortable and no acute distress Orientation/consciousness: patient oriented x3 Neck Neck: Yes normal visual inspection Resp Effort & Inspection: normal respiratory effort Auscultation: clear to auscultation bilaterally, no crackles, no rales, no rhonchi and no wheezes Cardio Jugular venous distension: no JVD Rate: regular rate Rhythm: regular rhythm Heart sounds: S1 normal heart sound present, S2 normal heart sound present, no murmurs and no rubs Neuro General: patient oriented x3 Extrem General: Yes normal to inspection, No no pedal edema and No calf tenderness Psych Appearance: grossly normal Mental Status: mental status grossly normal Speech and movement: Normal speech and movement present Assessment & Plan Assessment & Plan (1) Palpitations: Code(s): R00.2 - Palpitations Plan: Reported heart palpitations, strong heartbeat which feels like her heart wants to come out of her mouth. No presyncope, syncope, falls. EKG done last visit shows sinus tachycardia, rate 101, normal UT, QRS and QTC intervals. Echocardiogram done 07/31/2023 shows EF 45-50%, normal valves, no regional wall motion abnormalities. Exercise nuclear stress test done poor exercise toleran amberly, doing only 28 seconds on the treadmill and requesting to stop due to fatigue and inability to keep up with treadmill. She needed to have a pharmacological nuclear stress test done showing normal myocardial perfusion imaging. On last visit a Holter monitor was ordered however not completed as of yet. Will send message back to centralized scheduling. Unclear reason at this time for her mild cardiomyopathy. She does not appear to have heart failure on examination. She does report daytime sleepiness and need to take naps. Will order a home sleep study for further evaluation. She denies alcohol use. Blood pressure is well controlled. Cardiology follow-up in 4-6 weeks, sooner if needed. (2) SOB (shortness of breath): Code(s): R06.02 - Shortness of breath Plan: As above. Symptom of shortness of breath may be related to deconditioning. She does have a mildly reduced EF which can contribute (3) Precordial chest pain: Code(s): R07.2 - Precordial pain Plan: Atypical discomfort in her chest, random and nonexertional. Nuclear stress test is normal. (4) Hypersomnia: Code(s): G47.10 - Hypersomnia, unspecified Plan: Sleep study being ordered (5) Cardiomyopathy: Code(s): I42.9 - Cardiomyopathy, unspecified Plan: As above. Blood pressure 110/68. Will hold off on med management at this time. Orders: Orders RT home sleep study Today G47.10 - Hypersomnia, unspecified, R06.02 - Shortness of breath Coding Level of Care Code Tele Est Pt Level 4 (76737) Diagnoses Palpitations R00.2 SOB (shortness of breath) R06.02 Precordial chest pain R07.2 Hypersomnia G47.10 Cardiomyopathy I42.9 Time Spent (min) 28
== END 2023-08-31 10:19 | disposition home or self-care (01) ==
PROVIDERS: PCP Family Medicine; Visit Provider Nurse Practitioner Family
DX: R00.2 Palpitations (principal); R06.02 Shortness of breath; R07.2 Precordial pain; G47.10 Hypersomnia, unspecified; I42.9 Cardiomyopathy, unspecified
CPT/HCPCS: 99214

== ENCOUNTER → 2023-08-31 09:22 | Outpatient (BNVA) | payer MEDICAID, SELFPAY | PROVIDERS: PCP Family Medicine; Visit Provider Nurse Practitioner Family ==

== ENCOUNTER → 2023-09-12 13:34 | Outpatient (REF) | payer MEDICAID, SELFPAY ==
--- NOTE | 2023-09-12 13:38 | HM_ITS ---
Conclusion: 1. Patient was monitored for total period of 1 day 2. Baseline was normal sinus rhythm with average of 97 beats per minute 3. Frequent sinus tachycardia noted with 33% of time heart rate about 100 beats per minute 4. No significant arrhythmias or pauses noted 5. Patient reported 4 events in conjunction with sinus tachycardia with symptoms of pain in the chest as well as shortness of breath MTDD
== END ==
LOC: HO.CARD 13:34
PROVIDERS: PCP Family Medicine; Visit Provider Internal Medicine
DX: R00.2 Palpitations (principal)
CPT/HCPCS: 93225

== ENCOUNTER → 2023-09-12 13:38 | Outpatient (BNV) | payer MEDICAID, SELFPAY | PROVIDERS: PCP Family Medicine; Visit Provider Internal Medicine Cardiovascular Disease | DX: R00.0 Tachycardia, unspecified (principal) | CPT/HCPCS: 93227 ==

== ENCOUNTER 2023-11-05 08:39 | Outpatient (AMB) | payer MEDICAID, SELFPAY ==
--- NOTE | 2023-11-05 08:42 | MHC.OFFVIS ---
Vital Signs 11/05/23 08:50 Height 5 ft 8 in Weight 216 lb 0.848 oz BMI 32.8 Intake Visit Reasons: EMB Paperhanger Assistant Required: Yes Paperhanger Assistant Language: Biofuels Engineering Manager Name: Whit DOVE Information Interpreted: non-clinical & clinical Print Binding And Finishing Worker: Print Binding And Finishing Worker Present (Whit DOVE) Accompanied by: Self / Same As Patient Allergies meloxicam [MELOXICAM] Allergy (Unknown, Verified 11/05/23 08:59) TACHYCARDIA, palpitations morphine [MORPHINE] Allergy (Unknown, Verified 11/05/23 08:59) UNKNOWN, vomiting Sulfa (Sulfonamide Antibiotics) [SULFA (SULFONAMIDE ANTIBIOTICS)] Allergy (Unknown, Verified 11/05/23 08:59) SWELLING HPI Comments Details: Presenting for EMB [facility] Medical History Bipolar 1 disorder Migraines Fibromyalgia Anxiety and depression Asthma Surgical History History of surgery on arm Hx of section Family History Father Family hx of hypertension Maternal Grandfather Family history of diabetes mellitus Maternal Grandmother Family history of diabetes mellitus Mother Diabetes Thyroid condition Sister Thyroid condition High cholesterol Brother No problems noted. Brother No problems noted. Brother No problems noted. Son No problems noted. Son Autism Social History Alcohol intake: never Patient Tobacco Use Status: Former Tobacco user Current occupational status: unemployed Current occupation: rt handed Sexual orientation: Straight/Heterosexual Gender identity: Female Female Reproductive History Menstrual Duration of menses: 3-5 days Date of last menstrual period: 10/09/23 Physical Exam Vital Signs: BMI result Body Mass Index 32.8 Office Procedures Endometrial Biopsy Details: The patient was counseled regarding the indication and benefits of endometrial sampling to rule out endometrial pathology including not limited to endometrial hyperplasia or endometrial cancer and others; The alternatives (Either do nothing vs. hysteroscopy D&C) & the risks were discussed with the patient including but not limited: pain, uterine perforation, bleeding, infection, possible injury to bladder, bowel, ureter, possible need for blood transfusion with all its possible risks. The patient verbalized understanding all questions answered and signed consent. Urine test done in the office was negative The patient was placed into the dorsal lithotomy position; a speculum was inserted in the vagina. Using aseptic technique for the procedure, the cervix was cleansed with Betadine. The anterior lip of the cervix was grasped with a single tooth tenaculum. The uterus was sounded to 10 cm with a 4 mm Pipelle was used. Tissues samples were obtained and placed in formalin, in a patient labeled container and sent to the pathology department. At the end of the procedure, there was minimal bleeding noted The patient tolerated the procedure well and was discharged in good condition with the following instructions: Nothing in the vagina until the bleeding stops. No sex until the bleeding stops, to call if any of the following occurs: fever (>100.4), flu-like symptoms, abdominal pain, heavy bleeding, four smelling vaginal discharge. The patient was instructed to schedule a Follow up appointment in 2 weeks to discuss pathology results of the biopsy and treatment options. This note was generated with a voice recognition program. Some errors may have been overlooked during the review of this note. Sometimes these errors may affect the content or meaning of a given sentence. [id number] Biopsy Results AMB Test Urine AMB Test Urine Negative Last Edit by Whit Patel CMA on 11/05/23 10:22 Results Reviewed Results Reviewed: Laboratory Last Values Tst Clinic Negative 11/05/23 10:21 Assessment & Plan Assessment & Plan (1) Abnormal uterine bleeding (AUB): Code(s): N93.9 - Abnormal uterine and vaginal bleeding, unspecified Category: Medical Plan: EMB done, see procedure note Orders: Orders AMB HCG Urine Test Today Z32.02 - Encounter for test, result negative AMB Endometrial Biopsy Today N93.9 - Abnormal uterine and vaginal bleeding, unspecified Coding Level of Care Code Procedure Only Diagnoses Abnormal uterine bleeding (AUB) N93.9 CPT Codes Endometrial Biopsy - CPT: 69447-Mnciiynsfps Biopsy ([id number])
[2023-11-05 08:50] VITALS: BMI 32.8
== END 2023-11-05 11:09 | disposition home or self-care (01) ==
PROVIDERS: PCP Family Medicine; Referring Provider Family Medicine; Visit Provider Obstetrics & Gynecology
DX: N93.9 Abnormal uterine and vaginal bleeding, unspecified (principal); Z32.02 Encounter for pregnancy test, result negative
CPT/HCPCS: 58100

== ENCOUNTER 2023-11-05 08:39 | Outpatient (REF) | payer MEDICAID, SELFPAY | END 2023-11-05 08:40 | disposition home or self-care (01) | LOC: HO.LNP 08:39 | PROVIDERS: PCP Family Medicine; Visit Provider Obstetrics & Gynecology | DX: N93.9 Abnormal uterine and vaginal bleeding, unspecified (principal) | CPT/HCPCS: 58100; 81025; 88305 ==

== ENCOUNTER → 2023-11-12 12:49 | Outpatient (BNVA) | payer MEDICAID, SELFPAY | PROVIDERS: PCP Family Medicine; Visit Provider Physician Assistant Surgical ==

== ENCOUNTER 2024-01-28 14:02 | Outpatient (AMB) | payer MEDICAID, SELFPAY ==
--- NOTE | 2024-01-28 14:10 | MHC.OFFVIS ---
Vital Signs 01/28/24 14:16 Height 5 ft 3 in Weight 209 lb 7.026 oz BMI 37.1 Intake Visit Reasons: emb results Forestry Fire Aide Required: Yes Forestry Fire Aide Language: Revenue Integrity Analyst Services: Forestry Fire Aide Present (in person) Forestry Fire Aide Name: Whit DOVE Information Interpreted: non-clinical & clinical Accompanied by: Self / Same As Patient Allergies meloxicam [MELOXICAM] Allergy (Unknown, Verified 01/28/24 14:16) TACHYCARDIA, palpitations morphine [MORPHINE] Allergy (Unknown, Verified 01/28/24 14:16) UNKNOWN, vomiting Sulfa (Sulfonamide Antibiotics) [SULFA (SULFONAMIDE ANTIBIOTICS)] Allergy (Unknown, Verified 01/28/24 14:16) SWELLING HPI Comments Details: The patient is presenting for follow-up to discuss the results of her abnormal uterine bleeding workup and options of treatment. The following workup was done.: H&H= 13.3/40.7 05/12 TSH, prolactin, hCG, GC and chlamydia were negative. Endometrial biopsy pathology showed secretory endometrium with no evidence of hyperplasia and/or malignancy. 05/12 Co testing was done was negative. Pelvic ultrasound showed the following: IMPRESSION: 1. Endometrial thickness is 9 mm. 2. Right ovarian complex cysts measuring up to 1.5 cm. Recommend follow-up ultrasound in 6-8 weeks. 3. Left ovary is seen only on transabdominal images and is grossly unremarkable. Previously identified 3 mm left ovarian echogenic focus is difficult to evaluate the current exam due to severely limited visualization. REPLACED BY [facility] Medical History Bipolar 1 disorder Migraines Fibromyalgia Anxiety and depression Asthma Surgical History History of surgery on arm Hx of section Family History Father Family hx of hypertension Maternal Grandfather Family history of diabetes mellitus Maternal Grandmother Family history of diabetes mellitus Mother Diabetes Thyroid condition Sister Thyroid condition High cholesterol Brother No problems noted. Brother No problems noted. Brother No problems noted. Son No problems noted. Son Autism Social History Alcohol intake: never Patient Tobacco Use Status: Former Tobacco user Current occupational status: unemployed Current occupation: rt handed Sexual orientation: Straight/Heterosexual Gender identity: Female Review of Systems Const All systems reviewed & are unremarkable except as noted in HPI and below Reports as per HPI and Reports no additional complaints GI Reports no additional complaints Reports no additional complaints Assessment & Plan Assessment & Plan (1) Abnormal uterine bleeding (AUB): Code(s): N93.9 - Abnormal uterine and vaginal bleeding, unspecified Category: Medical Plan: Discussed with the patient the results of the work up done and options of treatment including Lysteda, control pills, Mirena IUD, endometrial ablation and hysterectomy. All pros, cons, risks and benefits if each option was discussed with the patient and the patient decided to go ahead with Mirena IUD so a more detailed discussion about it was conducted including mechanism of action, risks (uterine perforation, infection, injury to bladder, bowel, displacement, and others) benefits (hypo menorrhea, amenorrhea, ...). GC/CT were taken and negative and the patient was instructed to schedule Mirena IUD insertion on day 1-5 of next cycle . All questions answered, the patient verbalized understanding (2) Complex ovarian cyst: Code(s): N83.299 - Other ovarian cyst, unspecified side Category: Medical Plan: Discussed with the patient the complex ovarian cyst by ultrasound. Discussed with the patient the Ultrasound findings, the main limitation of transvaginal ultrasonography alone as a diagnostic tool to distinguish benign from malignant masses relates to its lack of specificity and low positive predictive value for cancer. The differential diagnosis discussed with the patient includes the following but not limited to: benign and malignant gynecological and non-gynecological causes. Since last ultrasound was in 05/12, will place an order for repeat ultrasound [facility]. Instructions given the patient to schedule an ultrasound and a follow-up appointment within 2 weeks. All questions were answered & the patient verbalized understanding and agreed with the plan. Orders: Orders US pelvic and transvaginal Today N83.299 - Other ovarian cyst, unspecified side Coding Level of Care Code Est Pt Level 3 (58616) Diagnoses Abnormal uterine bleeding (AUB) N93.9 Complex ovarian cyst N83.299
[2024-01-28 14:16] VITALS: BMI 37.1
== END 2024-01-28 15:34 | disposition home or self-care (01) ==
LOC: HO.HWS 14:02
PROVIDERS: PCP Family Medicine; Referring Provider Family Medicine; Visit Provider Obstetrics & Gynecology
DX: N93.9 Abnormal uterine and vaginal bleeding, unspecified (principal); N83.299 Other ovarian cyst, unspecified side
CPT/HCPCS: 99213

== ENCOUNTER → 2024-01-28 14:02 | Outpatient (BNVA) | payer MEDICAID, SELFPAY | PROVIDERS: PCP Family Medicine; Visit Provider Obstetrics & Gynecology | DX: N93.9 Abnormal uterine and vaginal bleeding, unspecified (principal); N83.291 Other ovarian cyst, right side | CPT/HCPCS: 99212 ==

== ENCOUNTER 2024-07-04 13:04 | Outpatient (REF) | payer MEDICAID, SELFPAY ==
--- OUTSIDE RECORDS SUMMARY | 2024-07-04 13:27 | XMS_ITS | Encounter Summary ---
Author Organization [employer] Address [address] [place] [address] Care Team Providers Care Coke Oven Mason Name Role Phone Ale Morales MD Primary Care Provider [phone] Encounter Details Date Type Department Care Team (Late st Contact Info) Description 08/29/2023 Orders Only [facility]EDS [address] [place], [place] [id number] Provider, MD Austen Social History Tobacco Use Types Packs/Day Years Used Date Smoking Tobacco: Former Cigarettes 0.3 5 Passive Smoke Exposure: Never Smokeless Tobacco: Never Alcohol Use Standard Drinks/Week Comments Never 0 (1 standard drink = 0.6 oz pur e alcohol) Depression Answer Date Recorded Patient Health Questionnaire-9 Score 5 07/23/2023 Patient Health Questionnaire-9 Score 5 07/23/2023 Last PHQ-9: Questionnaire Data Not on file 0 07/23/2023 Housing Stability Answer Date Recorded What is your housing situation today? I have angela moreno 03/22/[address] you li ve. Do you have problems with any of the following? None of the above 03/22/2023 Food Insecurity Answer Date Recorded Within the past 12 months, y ou worried that your food would run out before you got money to buy more: Never True 03/22/2023 Within the past 12 months,th e food you bought just didn't last and you didn't have enough money to get more: Never True 06/2022 Transportation Answer Date Recorded In the past 12 months, has l ack of transportation kept you from medical appts, meetings, work or from getting things needed for daily living? No 03/22/2023 Utilities Answer Date Recorded In the past 12 months, has t he electric, gas, oil or water company threatened to shut off services in your home? No 03/22/2023 Depression Answer Date Recorded Patient Health Questionnaire-2 Score 2 07/23/2023 Comments Unknown Sex and Gender Information Value Date Recorded Sex Assigned at Female 03/20/2022 10:29 AM EDT Legal Sex Female 10:29 AM EDT Gender Identity Female 03/20/2022 10:29 AM EDT Sexual Orientation Straight 03/06/2024 10 :00 AM EDT documented as of this encounter Plan of Treatment Not on file documented as of this encounter Procedures Procedure Name Priority Date/Time Associated Diagnosis Comments PAP SMEAR Routine 05/08/2023 3:43 PM EST documented in this encounter Results * Pap Smear (05/08/2023 3:43 PM EST) Swab us Historical Provider LAB CYTOLOGY ORDERABLES F inal Result documented in this encounter Visit Diagnoses Not on filedocumented in this encounter Additional Health Concerns Assessment Noted Time PHQ-9 Depression Total Score: 5 07/23/19 24 1:43 PM EST documented as of this encounter Care Teams Coke Oven Mason Relationship Specialty Start Date End Date Ale Morales MD [address] [place] [address] PCP - General Family Medicine 03/28/21 Shavonne Foote, DO [address] [place] [address] Psychiatrist Psychiatry 05/21/19 documented as of this encounter
--- OUTSIDE RECORDS SUMMARY | 2024-07-04 13:27 | XMS_ITS | Encounter Summary ---
Author Organization [email or web address] Address [address] [place] [address] Care Team Providers Care Train Brakeman Name Role Phone Ale Morales MD Primary Care Provider [phone] Reason for Visit * Reason Onset Date Comments pain antibiotic and pain medication 08/20/2023 Encounter Details Date Type Department Care Team (Late st Contact Info) Description 08/20/2023 Telephone [facility] ADULT DENTAL [address] [place] [address] Linder-Jason, Kerri, DDS [address] [place], [place] [id number] pain antibiotic and pain medication Social History Tobacco Use Types Packs/Day Years [...] AM EDT documented as of this encounter Miscellaneous Notes * Telephone Encounter - Abbey Adkins - 08/20/2023 2:01 PM EDT Patient states she receive the antibiotic but nothing for the pain and shew ants something for painto be sent in as well * Telephone Encounter - Abbey Adkins - 08/20/2023 11:06 AM EDT Patient calling in to report that she was in 08/14 and that the medication is not working for her. Patient was asked if she is taking antibiotic as prescribed and pain medication as prescribed and she states that she is. Patient was asked if she feels any relief at all and she states that the patient is still the same with no relief. Would like something else to sent tot he pharmacy. Informed en ent message would be sent to provider and determination would be made by provider as to where to gofrom here documented in this encounter Plan of Treatment Not on file documented as of this encounter Visit Diagnoses Not on filedocumented in this encounter Additional Health Concerns Assessment Noted Time PHQ-9 Depression Total Score: 5 07/23/19 24 1:43 PM EST documented as of this encounter Care Teams Train Brakeman Relationship Specialty Start Date End Date Ale Morales MD [address] [place] [address] PCP - General Family Medicine 03/28/21 Shavonne Foote DO [address] [place] [address] Psychiatrist Psychiatry 05/21/19 documented as of this encounter
--- OUTSIDE RECORDS SUMMARY | 2024-07-04 13:27 | XMS_ITS | Encounter Summary ---
Author Organization [employer] Address [address] [place] [address] Care Team Providers Care Hall Cleaner Name Role Phone Ale Morales MD Primary Care Provider [phone] Encounter Details Date Type Department Care Team ([facility] Contact Info) Description 04/17/2022 Abstract [facility] [address] [place] [address] Provider, MD Austen Social History Tobacco Use Types Packs/Day Years Used Date Smoking Tobacco: Never Assessed Comments Unknown Sex and Gender Information Value Date Recorded Sex Assigned at Female 03/20/2022 10:29 AM EDT Legal Sex Female 10:29 AM EDT Gender Identity Female 03/20/2022 10:29 AM EDT Sexual Orientation Straight 03/06/2024 10 :00 AM EDT documented as of this encounter Plan of Treatment Not on file documented as of this encounter Visit Diagnoses Not on filedocumented in this encounter Care Teams Hall Cleaner Relationship Specialty Start Date End Date Ale Morales MD [address] [place] [address] PCP - General Family Medicine 03/28/21 Shavonne Foote DO [address] [place] [address] Psychiatrist Psychiatry 05/21/19 documented as of this encounter
--- OUTSIDE RECORDS SUMMARY | 2024-07-04 13:27 | XMS_ITS | Encounter Summary ---
Author Organization [email or web address] Address [address] [place] [address] Care Team Providers Care Fundraising Assistant Name Role Phone Ale Morales MD Primary Care Provider [phone] Encounter Details Date Type Department Care Team ([facility] Contact Info) Description 06/30/2024 11:30 AM EST Office Visit [facility] MED & PEDS [address] [place], [place] [phone] Nicky Mercado, REGULATORY SUBMISSIONS ASSOCIATE [address] [place], [place] [phone] Obesity (BMI 30-39.9) (Primary Dx) Social History Tobacco Use Types Packs/Day Years [...] AM EDT documented as of this encounter Last Filed Vital Signs Vital Sign Reading Time Taken Comments Blood Pressure 118/78 06/30/2024 11:45 AM EST Pulse 80 06/30/2024 11:45 AM EST Temperature 36.7 ??C (98 ??F) 06/30/2024 11:45 AM EST Respiratory Rate 18 06/30/2024 11:45 AM EST Oxygen Saturation - - Inhaled Oxygen Concentration - - Weight 100 kg (221 lb) 06/30/2024 11:45 AM EST Height 163 cm (5' 4.17 ) 06/30/2024 11:45 AM EST Body Mass Index 37.73 06/30/2024 11:45 AM EST documented in this encounter Progress Notes * ADEEL Westbrook - 06/30/2024 11:30 AM EST Subjective: Cherri Leon is a 38 y.o. female with a past medical history of asthma, fibromyalgia, prediabetes, hyperlipidemia, back pain who presents to the office for a follow up visit. PCP Dr. Morales. HPI: Weight management Zepbound 2.5mg subcutaneous weekly initiated May 2024. Reports she has been tolerating medication well without any side effects or adverse reactions. Used last injection this morning. Has noticedeating slightly healthier (primarily vegetables and protein), and she is exercising at least 2 times per week (Bicycle, walking) Wt Readings from Last 5 Encounters: 06/30/24 221 lb (100 kg) 05/28/24 224 lb (102 kg) 08/29/23 217 lb 6.4 oz (98.6 kg) 08/17/23 210 lb 6.4 oz (95.4 kg) 08/01/23 206 lb (93.4 kg) Review of Systems Constitutional: Negative for chills and fever. HENT: Negative for congestion. Respiratory: Negative for cough and wheezing. Cardiovascular: Negative for chest pain and palpitations. Gastrointestinal: Negative for diarrhea, nausea and vomiting. Musculoskeletal: Negative for gait problem. Skin: Negative for rash. Visit Vitals BP 118/78 (BP Location: Right arm, Patient Position: Sitting, BP Cuff Size: Adult) Pulse 80 Temp 98 ??F (36.7 ??C) (Oral) Resp 18 Ht 5' 4.17 (1.63 m) Wt 221 lb (100 kg) BMI 37.73 kg/m?? Smoking Status Former BSA 2.13 m?? Physical Exam Constitutional: Appearance: Normal appearance. HENT: Head: Atraumatic. Right Ear: External ear normal. Left Ear: External ear normal. Cardiovascular: Rate and Rhythm: Normal rate and regular rhythm. Pulmonary: Effort: Pulmonary effort is normal. Breath sounds: Normal breath sounds. Neurological: Mental Status: She is alert and oriented to person, place, and time. Psychiatric: Mood and Affect: Mood normal. Behavior: Behavior normal. Problem List Items Addressed This Visit Endocrine/Metabolic Obesity (BMI 30-39.9) - Primary Current Assessment & Plan - Medication initiation: May 2024 - 3# down per scale - Has been tolerating medication well w.o SE or AR. Plan to increase to Zepbound 5mg subcutaneous weekly. - Encouraged to continue with nutrition and routine physical activity Relevant Medications Tirzepatide-Weight Management (Zepbound) 5 MG/0.5ML solution Follow up: 10 weeks for weight management, sooner as needed documented in this encounter Miscellaneous Notes * Assessment & Plan Note - ADEEL Westbrook - 06/30/2024 12:58 PM EST Associated Problem(s): Obesity (BMI 30-39.9) - Medication initiation: May 2024 - 3# down per scale - Has been tolerating medication well w.o SE or AR. Plan to increase to Zepbound 5mg subcutaneous weekly. - Encouraged to continue with nutrition and routine physical activity documented in this encounter Plan of Treatment Not on file documented as of this encounter Visit Diagnoses Diagnosis Obesity (BMI 30-39.9)- Primary documented in this encounter Additional Health Concerns Assessment Noted Time PHQ-9 Depression Total Score: 5 07/23/19 24 1:43 PM EST documented as of this encounter Care Teams Fundraising Assistant Relationship Specialty Start Date End Date Ale Morales MD [address] [place] [address] PCP - General Family Medicine 03/28/21 Shavonne Foote DO [address] [place] [address] Psychiatrist Psychiatry 05/21/19 documented as of this encounter
--- OUTSIDE RECORDS SUMMARY | 2024-07-04 13:27 | XMS_ITS | Encounter Summary ---
Author Organization [employer] Address [address] [place] [address] Care Team Providers Care Licensed Direct Entry Midwife Name Role Phone Ale Morales MD Primary Care Provider [phone] Reason for Visit * Reason Onset Date Comments Med Refill 10/05/2023 Encounter Details Date Type Department Care Team (Late st Contact Info) Description 10/05/2023 Refill [facility] [address] [place] [address] Ale Morales MD [address] [place] [address] Social History Tobacco Use Types Packs/Day Years [...] your housing situation today? I have angela sing 03/22/[address] you li [...] encounter Miscellaneous Notes * Telephone Encounter - Sebastián Ramirez - 10/05/2023 1:55 PM EDT TC from pt requesting medication refill. Medications needing refill: Semaglutide-Weight Management (Wegovy) 0.25 MG/0.5ML solution auto-injector To be sent to: [facility] documented in this encounter Plan of Treatment Not on file documented as of this encounter Visit Diagnoses Not on filedocumented in this encounter Additional Health Concerns Assessment Noted Time PHQ-9 Depression Total Score: 5 07/23/19 24 1:43 PM EST documented as of this encounter Care Teams Licensed Direct Entry Midwife Relationship Specialty Start Date End Date Ale Morales MD [address] [place] [address] PCP - General Family Medicine 03/28/21 Shavonne Foote DO [address] [place] [address] Psychiatrist Psychiatry 05/21/19 documented as of this encounter
--- OUTSIDE RECORDS SUMMARY | 2024-07-04 13:27 | XMS_ITS | Encounter Summary ---
Author Organization [employer] Address [address] [place] [address] Care Team Providers Care Box Toe Maker Name Role Phone Ale Morales MD Primary Care Provider [phone] Reason for Visit * Reason Onset Date Comments Appointment Request 08/09/2023 Encounter Details Date Type Department Care Team ([facility] st Contact Info) Description 08/09/2023 Telephone [facility] MED[facility] [address] [place] [address] Ale Morales MD [address] [place] [address] Appointment Request Social History Tobacco Use Types Packs/Day Years Used Date Smoking Tobacco: Never Passive Smoke Exposure: Never Smokeless Tobacco: Never Alcohol Use Standard Drinks/Week Comments Never 0 (1 standard drink = 0.6 oz pur e alcohol) Depression Answer Date Recorded Patient Health Questionnaire-9 Score 5 07/23/2023 Patient Health Questionnaire-9 Score 5 07/23/2023 Last PHQ-9: Questionnaire Data Not on file 0 07/23/2023 Housing Stability Answer Date Recorded What is your housing situation today? I have angeladenny moreno 03/22/[address] you [...] encounter Miscellaneous Notes * Telephone Encounter - Mariajose Wolff - 08/09/2023 2:15 PM EDT Tc from pt requesting appt with PCP to discuss medications for back pain. documented in this encounter Plan of Treatment Not on file documented as of this encounter Visit Diagnoses Not on filedocumented in this encounter Additional Health Concerns Assessment Noted Time PHQ-9 Depression Total Score: 5 07/23/19 24 1:43 PM EST documented as of this encounter Care Teams Box Toe Maker Relationship Specialty Start Date End Date Ale Morales MD [address] [place] [address] PCP - General Family Medicine 03/28/21 Shavonne LarkinKristopher, [address] [place] [address] Psychiatrist Psychiatry 05/21/19 documented as of this encounter
--- OUTSIDE RECORDS SUMMARY | 2024-07-04 13:27 | XMS_ITS | Encounter Summary ---
Author Organization [employer] Address [address] [place] [address] Care Team Providers Care Packaging Associate Name Role Phone Ale Morales MD Primary Care Provider [phone] Reason for Visit * Reason Onset Date Comments Med Refill 06/26/2022 Encounter Details Date Type Department Care Team ([facility] st Contact Info) Description 06/26/2022 Telephone [facility] CH[facility] MED & PEDS [address] [place] [address] Ale Morales MD [address] [place] [address] Med Refill Social History Tobacco Use Types Packs/Day Years Used Date Smoking Tobacco: Never Passive Smoke Exposure: Never Smokeless Tobacco: Never Alcohol Use Standard Drinks/Week Comments Never 0 (1 standard drink = 0.6 oz pur e alcohol) Comments Unknown Sex and Gender Information Value Date Recorded Sex Assigned at Female 03/20/2022 10:29 AM EDT Legal Sex Female 10:29 AM EDT Gender Identity Female 03/20/2022 10:29 AM EDT Sexual Orientation Straight 03/06/2024 10 :00 AM EDT COVID-19 Exposure Response Date Recorded In the last 10 days, have yo u been in contact with someone who was confirmed or suspected to have Coronavirus/COVID-19? No / Unsure 06/13/2022 2:33 PM EST documented as of this encounter Miscellaneous Notes * Telephone Encounter - Sveta Howard CNM - 07/04/2022 8:18 AM EST Thanks! * Telephone Encounter - Shavonne Brenner RN - 07/03/2022 3:40 PM EST RN called [employer], spoke with Julissa and requested for PAP result. Result negative for intraepithelial lesion or malignancy and HPV not detected. will place result in the HIM basket to be scan. RN called pt via [employer] industrial nurse ID# [id number] and informed her of pelvic US results from Sveta and plan to refer to [facility]. Pt verbalizes understanding and agrees to plan. * Telephone Encounter - Shavonne Brenner RN - 07/03/2022 3:39 PM EST ----- Message from Sveta Howard CNM sent at 07/03/2022 9:51 AM EST ----- I don't see Cherri's pap results. Could you please call Doctor Evidence? Please also let Cherri know her pelvic ultrasound showed a small area in her left ovary that might be a dermoid cyst. It's not clear, and the radiologist advised additional imagi ng. I would like to refer her to [facility] for further evaluation, but it would be good to have results. Thanks! * Telephone Encounter - Hero Shannon - 06/26/2022 2:50 PM EST Tc from pt requesting med refill on traMADol (Ultram) 50 MG tablet Please sent to [facility] [place] - [address] documented in this encounter Plan of Treatment Not on file documented as of this encounter Visit Diagnoses Not on filedocumented in this encounter Care Teams Packaging Associate Relationship Specialty Start Date End Date Ale Morales MD [address] [place] [address] PCP - General Family Medicine 03/28/21 Shavonne Foote DO [address] [place] [address] Psychiatrist Psychiatry 05/21/19 documented as of this encounter
--- OUTSIDE RECORDS SUMMARY | 2024-07-04 13:27 | XMS_ITS | Encounter Summary ---
Author Organization [employer] Address [address] [place] [address] Care Team Providers Care Senior Product Designer Name Role Phone Ale Morales MD Primary Care Provider [phone] Reason for Visit * Reason Onset Date Comments Med Refill 10/05/2023 Encounter Details Date Type Department Care Team (Late st Contact Info) Description 10/05/2023 Refill [facility] MEDICINE [address] [place] [address] Ale Morales MD [address] [place] [address] Chronic back pain greater than 3 months duration (Primary Dx) Social History Tobacco Use Types [...] Telephone Encounter - Sebastián Ramirez - 10/05/2023 1:54 PM EDT TC from pt requesting medication refill. Medications needing refill: traMADol (Ultram) 50 MG tablet To be sent to: [facility] documented in this encounter Plan of Treatment Not on file documented as of this encounter Visit Diagnoses Diagnosis Chronic back pain greater than 3 months duration- Primary documented in this encounter Additional Health Concerns Assessment Noted Time PHQ-9 Depression Total Score: 5 07/23/19 24 1:43 PM EST documented as of this encounter Care Teams Senior Product Designer Relationship Specialty Start Date End Date Ale Morales MD [address] [place] [address] PCP - General Family Medicine 03/28/21 Shavonne Foote DO [address] [place] [address] Psychiatrist Psychiatry 05/21/19 documented as of this encounter
--- OUTSIDE RECORDS SUMMARY | 2024-07-04 13:27 | XMS_ITS | Encounter Summary ---
Author Organization [employer] Address [address] [place] [address] Care Team Providers Care Strand Galvanizer Name Role Phone Ale Morales MD Primary Care Provider [phone] Reason for Visit * Reason Onset Date Comments Appointment 04/02/2023 Encounter Details Date Type Department Care Team ([facility] Contact Info) Description 04/02/2023 Telephone [facility] ADULT DENTAL [address] [place] [address] Jimmy Schuler DDS [address] [place] [address] Appointment Social History Tobacco Use Types Packs/Day Years Used Date Smoking Tobacco: Never Passive Smoke Exposure: Never Smokeless Tobacco: Never Alcohol Use Standard Drinks/Week Comments Never 0 (1 standard drink = 0.6 oz pur e alcohol) Housing Stability Answer Date Recorded What is [...] off services in your home? No 03/22/2023 Comments Unknown Sex and Gender Information Value Date Recorded Sex Assigned at Female 03/20/2022 10:29 AM EDT Legal Sex Female 10:29 AM EDT Gender Identity Female 03/20/2022 10:29 AM EDT Sexual Orientation Straight 03/06/2024 10 :00 AM EDT documented as of this encounter Miscellaneous Notes * Telephone Encounter - Abbey Adkins - 04/02/2023 9:44 AM EST Patient came in for an appt and had to leave the office because she had been waiting for an hour for the appt and had to leave according to patient. She is looking to reschedule. When I checked, provider is booked out and informed that she would have to call on Sunday to see what is available and that I would send request over to office as well. She is upset. She states that it is not fair due toher having come to her appt and having had had to wait for an hour to not get anything done becauseshe ended up having to leave. She'd like a call back DR documented in this encounter Plan of Treatment Not on file documented as of this encounter Visit Diagnoses Not on filedocumented in this encounter Care Teams Strand Galvanizer Relationship Specialty Start Date End Date Ale Morales MD [address] [place] [address] PCP - General Family Medicine 03/28/21 Shavonne Foote DO [address] [place] [address] Psychiatrist Psychiatry 05/21/19 documented as of this encounter
--- OUTSIDE RECORDS SUMMARY | 2024-07-04 13:27 | XMS_ITS | Clinical Summary ---
Author Organization [facility] it[facility] Address [address] [place] [address] Care Team Providers Care Cell Cleaner Name Role Phone Unavailable Primary Care Provider Unavailabl e Social History Tobacco Use Types Packs/Day Years Used Date Smoking Tobacco: Never Assessed Comments Unknown Sex and Gender Information Value Date Recorded Sex Assigned at Not on file Legal Sex Female 4:56 PM EST Gender Identity Not on file Sexual Orientation Not on file Plan of Treatment Health Maintenance Due Date Last Done Comments DTaP,Tdap,and Td Vaccines (1 - Tdap) 12/23/2003 Hepatitis B Vaccines (1 of 3 - 19+ 3-dose series) 12/23/2003 Cervical Cancer Screening: P ap Smear 2005 Depression Screening 04/19/2022 HIV Screening 04/19/2022 Hepatitis C Screening 04/19/2022 Social Influencers of Health Screening 04/19/2022 COVID-19 Vaccine (2023-2 5 season) 2024 Influenza Vaccine (#1) 2024 HIB Vaccines Aged Out No longer eligi ble based on patient's age to complete this topic HPV Vaccines Aged Out No longer eligi ble based on patient's age to complete this topic Hepatitis A Vaccines Aged Out No long er eligible based on patient's age to complete this topic IPV Vaccines Aged Out No longer eligi ble based on patient's age to complete this topic MMR Vaccines Aged Out No longer eligi ble based on patient's age to complete this topic Meningococcal ACWY Vaccine Aged Out N o longer eligible based on patient's age to complete this topic Meningococcal B Vacine Aged Out No lo nger eligible based on patient's age to complete this topic Pneumococcal Vaccine: Pediat rics (0 to 5 Years) and At-Risk Patients (6 to 64 Years) Aged Out No longer eligible b ased on patient's age to complete this topic RSV Immunization Patients Un kevin 20 months Aged Out No longer eligible b ased on patient's age to complete this topic Varicella Vaccines Aged Out No longer eligible based on patient's age to complete this topic
--- OUTSIDE RECORDS SUMMARY | 2024-07-04 13:27 | XMS_ITS | Encounter Summary ---
Author Organization [employer] Address [address] [place] [address] Care Team Providers Care Patient Account Analyst Name Role Phone Ale Morales MD Primary Care Provider [phone] Encounter Details Date Type Department Care Team ([facility] st Contact Info) Description 06/04/2024 Telephone [facility] MEDICINE [address] [place] [address] Ale Morales MD [address] [place] [address] Social History Tobacco Use Types Packs/Day Years [...] encounter Miscellaneous Notes * Telephone Encounter - Linnette Warren RN - 06/06/2024 10:43 AM EST Notified patient via [employer]etnamese [employer] #[id number], Zepbound has been approved. front end drupal developer at [facility] pharmacy. Once she begins taking the medicaiton, she needs to call office to schedule FU appointment. Patient stated understanding and agreed with the plan. * Telephone Encounter - Ale Morales MD - 06/04/2024 1:22 PM EST [facility] Ir[facility] Team! Can you please call Cherri Leon and inform about approved Zepbound. Her Zepbound was approved patient needs to go to pharmacy to pickup. It was sent to the [facility] Pharmacy, she will be increase for next month to zepbound 5 mg. Needs a f/up 1 month after start med, please schedule with covering provider when I am on leave. Thanks! Ale documented in this encounter Plan of Treatment Not on file documented as of this encounter Visit Diagnoses Not on filedocumented in this encounter Additional Health Concerns Assessment Noted Time PHQ-9 Depression Total Score: 5 07/23/19 24 1:43 PM EST documented as of this encounter Care Teams Patient Account Analyst Relationship Specialty Start Date End Date Ale Morales MD [address] [place] [address] PCP - General Family Medicine 03/28/21 Shavonne Foote DO [address] [place] [address] Psychiatrist Psychiatry 05/21/19 documented as of this encounter
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
--- OUTSIDE RECORDS SUMMARY | 2024-07-04 13:27 | XMS_ITS | Encounter Summary ---
Author Organization [employer] Address [address] [place] [address] Care Team Providers Care Inclusion Intern Name Role Phone Ale Morales MD Primary Care Provider [phone] Encounter Details Date Type Department Care Team ([facility] st Contact Info) Description 08/20/2023 Orders Only [facility] [address] [place] [address] Kerri Paula, DDS [address] [place] [address] Social History Tobacco Use Types Packs/Day Years [...] your housing situation today? I have angela tiffanie 03/22/[address] you li [...] documented as of this encounter Care Teams Inclusion Intern Relationship Specialty Start Date End Date Ale Morales MD [address] [place] [address] PCP - General Family Medicine 03/28/21 Shavonne Foote DO [address] [place] [address] Psychiatrist Psychiatry 05/21/19 documented as of this encounter
--- OUTSIDE RECORDS SUMMARY | 2024-07-04 13:27 | XMS_ITS | Encounter Summary ---
Author Organization [employer] Address [address] 7t [place] [address] Care Team Providers Care Marble Polisher Name Role Phone Ale Morales MD Primary Care Provider [phone] Reason for Visit * Reason Onset Date Comments Chart Prep 06/26/2024 Encounter Details Date Type Department Care Team ([facility] st Contact Info) Description 06/26/2024 Telephone [facility] [address] [place] [address] Prabhakar Villalpando MA Chart Prep Social History Tobacco Use Types Packs/Day Years [...] encounter Miscellaneous Notes * Telephone Encounter - Prabhakar Elizabeth MA - 06/26/2024 1:33 PM EST Chart Prep Labs: done Images: done Vaccines due: yes Referrals: complete Screenings: n/a Overdue care gaps: A1C, Glucose, SDOH, PHQ-9, PISQ documented in this encounter Plan of Treatment Not on file documented as of this encounter Visit Diagnoses Not on filedocumented in this encounter Additional Health Concerns Assessment Noted Time PHQ-9 Depression Total Score: 5 07/23/19 24 1:43 PM EST documented as of this encounter Care Teams Marble Polisher Relationship Specialty Start Date End Date Ale Morales MD [address] [place] [address] PCP - General Family Medicine 03/28/21 Shavonne Foote DO [address] [place] [address] Psychiatrist Psychiatry 05/21/19 documented as of this encounter"
--- OUTSIDE RECORDS SUMMARY | 2024-07-04 13:27 | XMS_ITS | Encounter Summary ---
Author Organization [employer] Address [address] 7[address] [place] [address] Care Team Providers Care Secondary Spanish Teacher Name Role Phone Ale Morales MD Primary Care Provider [phone] Reason for Visit * Reason Comments Med Refill Encounter Details Date Type Department Care Team ([facility] Contact Info) Description 07/08/2023 Refill [facility] MED & PEDS [address] [place] [address] Ale Morales MD 505 [place] [address] Social History Tobacco Use Types Packs/Day Years [...] on filedocumented in this encounter Care Teams Secondary Spanish Teacher Relationship Specialty Start Date End Date Ale Morales MD [address] [place] [address] PCP - General Family Medicine 03/28/21 Shavonne Foote DO [address] [place] [address] Psychiatrist Psychiatry 05/21/19 documented as of this encounter
--- OUTSIDE RECORDS SUMMARY | 2024-07-04 13:27 | XMS_ITS | Encounter Summary ---
Author Organization [employer] Address [address] 7[address] [place] [address] Care Team Providers Care Poultry Farmer Meat Name Role Phone Ale Morales MD Primary Care Provider [phone] Reason for Visit * Reason Onset Date Comments PT-1 12/13/2023 Encounter Details Date Type Department Care Team ([facility] st Contact Info) Description 12/13/2023 Telephone [facility] MEDICINE [address] [place] [address] Ale Morales MD [address] [place] [address] PT-1 Social History Tobacco Use Types Packs/Day Years [...] encounter Miscellaneous Notes * Telephone Encounter - Patrick Easton - 12/13/2023 3:55 PM EDT Patient calling requesting PT1 Home Address verified: Y/N: Yes Provider name or facility name: [facility] Facility Address: [address] [place] [address] [address] [place], [place] Escort needed: Y/N: No Do you have a wheelchair: Y/N: No If yes- Manual or electric: no Visits: 6 documented in this encounter Plan of Treatment Not on file documented as of this encounter Visit Diagnoses Not on filedocumented in this encounter Additional Health Concerns Assessment Noted Time PHQ-9 Depression Total Score: 5 07/23/19 24 1:43 PM EST documented as of this encounter Care Teams Poultry Farmer Meat Relationship Specialty Start Date End Date Ale Morales MD [address] [place] [address] PCP - General Family Medicine 03/28/21 Shavonne LarkinDO Kristopher [address] [place] [address] Psychiatrist Psychiatry 05/21/19 documented as of this encounter
--- OUTSIDE RECORDS SUMMARY | 2024-07-04 13:27 | XMS_ITS | Encounter Summary ---
Author Organization [employer] Address [address] 7[address] [place] [address] Care Team Providers Care Shield Runner Name Role Phone Ale Morales MD Primary Care Provider [phone] Encounter Details Date Type Department Care Team (Late st Contact Info) Description 04/27/2022 Abstract [facility] ADULT DENTAL [address] [place] [address] Dental, Provider, DDS Social History Tobacco Use Types Packs/Day Years [...] suspected to have Coronavirus/COVID-19? No / Unsure 04/24/2022 11:01 AM EST documented as of this encounter Plan of Treatment Not on file documented as of this encounter Procedures Procedure Name Priority Date/Time Associated Diagnosis Comments 30 ITALO AMALGAM FILLING Routine 04/27/2022 12:00 AM EST 29 O AMALGAM FILLING Routine 04/27/2022 12:00 AM EST 20 O AMALGAM FILLING Routine 04/27/2022 12:00 AM EST 15 MO AMALGAM FILLING Routine 04/27/2022 12:00 AM EST 14 DOBL AMALGAM FILLING Routine 04/27/20 12:00 AM EST 13 O AMALGAM FILLING Routine 04/27/2022 12:00 AM EST 12 O AMALGAM FILLING Routine 04/27/2022 12:00 AM EST 9 L AMALGAM FILLING Routine 04/27/2022 1 2:00 AM EST 7 ML AMALGAM FILLING Routine 04/27/2022 12:00 AM EST 28 O AMALGAM FILLING Routine 04/27/2022 12:00 AM EST 32 EXTRACTION Routine 04/27/2022 12:00 AM EST 31 EXTRACTION Routine 04/27/2022 12:00 AM EST 19 EXTRACTION Routine 04/27/2022 12:00 AM EST 18 EXTRACTION Routine 04/27/2022 12:00 AM EST 16 EXTRACTION Routine 04/27/2022 12:00 AM EST 1 EXTRACTION Routine 04/27/2022 12:00 AM EST documented in this encounter Visit Diagnoses Not on filedocumented in this encounter Care Teams Shield Runner Relationship Specialty Start Date End Date Ale Morales MD [address] [place] [address] PCP - General Family Medicine 03/28/21 Shavonne Foote DO [address] [place] [address] Psychiatrist Psychiatry 05/21/19 documented as of this encounter
--- OUTSIDE RECORDS SUMMARY | 2024-07-04 13:27 | XMS_ITS | Encounter Summary ---
Author Organization [employer] Address [address] 7[address] [place] [address] Care Team Providers Care Batch Heat Treat Operator Name Role Phone Ale Morales MD Primary Care Provider [phone] Reason for Visit * Reason Comments Med Refill Encounter Details Date Type Department Care Team ([facility] Contact Info) Description 05/09/2023 Refill [facility] MED & PEDS [address] [place] [address] Ale Morales MD [address] [place] [address] Fibromyalgia Social History Tobacco Use Types Packs/Day Years [...] as of this encounter Visit Diagnoses Diagnosis Fibromyalgia Unspecified myalgia and myositis documented in this encounter Care Teams Batch Heat Treat Operator Relationship Specialty Start Date End Date Ale Morales MD [address] [place] [address] PCP - General Family Medicine 03/28/21 Shavonne Foote DO [address] [place] [address] Psychiatrist Psychiatry 05/21/19 documented as of this encounter
--- OUTSIDE RECORDS SUMMARY | 2024-07-04 13:27 | XMS_ITS | Encounter Summary ---
Author Organization [employer] Address [address] 7[address] [place] [address] Care Team Providers Care Compressor Engineer Name Role Phone Ale Morales MD Primary Care Provider [phone] Reason for Visit * Reason Onset Date Comments Med Refill 10/04/2022 Encounter Details Date Type Department Care Team ([facility] st Contact Info) Description 10/04/2022 Telephone [facility] CHC MED & PEDS [address] [place] [address] Ale Morales MD [address] [place] [address] Med Refill Social History Tobacco Use Types [...] suspected to have Coronavirus/COVID-19? No / Unsure 09/26/2022 2:08 PM EDT documented as of this encounter Miscellaneous Notes * Telephone Encounter - Katy Pena - 10/04/2022 9:56 AM EDT Tc from pt requesting med refill for medication traMADol (Ultram) 50 MG tablet. documented in this encounter Plan of Treatment Not on file documented as of this encounter Visit Diagnoses Not on filedocumented in this encounter Care Teams Compressor Engineer Relationship Specialty Start Date End Date Ale Morales MD [address] [place] [address] PCP - General Family Medicine 03/28/21 Shavonne Foote DO [address] [place] [address] Psychiatrist Psychiatry 05/21/19 documented as of this encounter
--- OUTSIDE RECORDS SUMMARY | 2024-07-04 13:27 | XMS_ITS | Encounter Summary ---
Author Organization [employer] Address [address] [place] [address] Care Team Providers Care Java Groovy Developer Name Role Phone Ale Morales MD Primary Care Provider [phone] Encounter Details Date Type Department Care Team (Latest Contact Info) Description 06/30/2024 Travel Social History Tobacco Use Types Packs/Day Years [...] documented as of this encounter Care Teams Java Groovy Developer Relationship Specialty Start Date End Date Ale Morales MD [address] [place] [address] PCP - General Family Medicine 03/28/21 Shavonne Foote, DO [address] [place] [address] Psychiatrist Psychiatry 05/21/19 documented as of this encounter
[2024-07-04 16:19] LABS: MANUAL DIFF FLAG NO
[2024-07-04 16:32] LABS: Basophils Absolute Auto 0.1 X10*3/uL (0.0-0.2); Basophils Percent Auto 1.5 % (0-2); Eosinophils Absolute Auto 0.3 X10*3/uL (0.0-0.4); Eosinophils Percent Auto 8.2 % (0-4); Hematocrit 44.7 % (37.0-47.0); Hemoglobin 14.4 g/dl (12.0-16.0); Imm Gran Abs Auto 0.02 X10*3/uL (0.00-0.03); Imm Gran Pct Auto 0.5 % (0.0-0.4); Lymphocytes Absolute Auto 1.3 X10*3/uL (1.2-4.9); Lymphocytes Percent Auto 32.9 % (20-40); Mean Corpuscular HGB Conc 32.2 g/dl (31.0-35.0); Mean Corpuscular Hemoglobin 26.9 pg (27.0-33.0); Mean Corpuscular Volume 83.4 fL (80.0-98.0); Monocytes Absolute Auto 0.4 X10*3/uL (0.1-1.2); Monocytes Percent Auto 9.4 % (2-11); Neutrophils Absolute Auto 1.9 x10*3/uL (2.0-8.3); Neutrophils Percent Auto 47.5 % (45-73); Platelet Count 179 X10*3/uL (160-400); Red Blood Count 5.36 X10*6/uL (4.20-5.50); Red Cell Distribution Width 14.2 % (11.0-16.0); White Blood Count 3.9 X10*3/uL (4.8-10.8)
[2024-07-04 16:35] LABS: Estimated Average Glucose 128 mg/dL; Hemoglobin A1C 161.4641 umol/L; Hemoglobin A1c % 6.1 % (<6.0); Total Hemoglobin (HGBA1C) 3752.9446 umol/L
[2024-07-04 16:52] LABS: Alanine Aminotransferase 97 U/L (0-31); Albumin Level 4.2 g/dL (3.5-5.0); Alkaline Phosphatase 128 U/L (39-117); Anion Gap 12 (12-20); Aspartate Amino Transferase 78 U/L (5-31); Bilirubin Total 0.6 mg/dL (0.0-1.0); Blood Urea Nitrogen 8 mg/dL (9-16); Calcium 9.5 mg/dL (8.4-10.2); Carbon Dioxide 21 mmol/L (22-29); Chloride 107 mmol/L (96-108); Cholesterol 251 mg/dL (<200); Estimated Glomerular Filt Rate > 60; Glucose Fasting 94 mg/dL (60-99); Glucose Random 93 mg/dL (60-115); HDL Cholesterol 33 mg/dL (>40); LDL Cholesterol Calculated 170 mg/dL (<100); Potassium 3.9 mmol/L (3.3-5.1); Sodium 136 mmol/L (135-145); Total Protein 8.6 g/dL (6.5-8.0); Triglycerides 242 mg/dL (<150)
[2024-07-04 16:58] LABS: TSH reflex Free T4 1.85 uIU/mL (0.32-4.0)
== END 2024-07-04 13:05 | disposition home or self-care (01) ==
LOC: HO.HHCL 13:04
PROVIDERS: Visit Provider Psychiatry & Neurology Psychiatry
DX: Z79.899 Other long term (current) drug therapy (principal)
CPT/HCPCS: 36415; 80053; 80061; 82947; 83036; 84443; 85025

== ENCOUNTER 2024-10-20 13:32 | Outpatient (REF) | payer MEDICAID, SELFPAY ==
[2024-10-20 14:18] LABS: Appearance Urine Cloudy; Color Urine Dark Yellow; Glucose Urine UA Negative (Negative); Leukocyte Esterase Urine Moderate (2+) (Negative); Nitrite Urine Positive (Negative); PH 6.5 (5.0-9.0); Specific Gravity - Urine 1.025 (1.005-1.025); UMIC TRIGGER UACC YES; Urine Blood Trace (Negative); Urine Ketones Trace mg/dL (Negative); Urine Protein 30 (1+) mg/dL (Neg-Trace)
[2024-10-20 14:22] LABS: Bacteria Urine 4+ (None Seen); Hyaline Casts Urine 0-2 /LPF (0-2); UACC Culture Trigger YES; WBC Urine >50 /HPF (0-5)
--- OUTSIDE RECORDS SUMMARY | 2024-10-20 14:40 | XMS_ITS | Clinical Summary ---
Author Organization [facility] Address [address] [place] [address] Care Team Providers Care Solid Waste Facility Supervisor Name Role Phone Unavailable Primary Care Provider [...] Vaccine (2023-2 5 season) 2024 Influenza Vaccine (Season Ended) 2025 HIB Vaccines Aged Out No longer eligi [...] age to complete this topic Meningococcal B Vaccine Aged Out No l onger eligible based on patient's age to complete [...]
[2024-10-20 16:36] LABS: Bacterial Vaginosis PCR NEGATIVE (Negative); Candida Group PCR NOT DETECTED (Not Detect); Candida glab krusei PCR NOT DETECTED (Not Detect); Trichomonas vaginalis PCR NOT DETECTED (Not Detect)
== END 2024-10-20 13:33 | disposition home or self-care (01) ==
LOC: HO.CHCLNP 13:32
PROVIDERS: Visit Provider Family Medicine
DX: R82.90 Unspecified abnormal findings in urine (principal)
CPT/HCPCS: 81001; 81515; 87086; 87186

== ENCOUNTER 2025-01-26 10:12 | Outpatient (REF) | payer MEDICAID, SELFPAY ==
[2025-01-26 11:32] LABS: Hematocrit 44.7 % (37.0-47.0); Hemoglobin 14.9 g/dl (12.0-16.0); Imm Gran Abs Auto 0.02 X10*3/uL (0.00-0.03); Imm Gran Pct Auto 0.4 % (0.0-0.4); Lymphocytes Absolute Auto 1.6 X10*3/uL (1.2-4.9); MANUAL DIFF FLAG SCAN; Mean Corpuscular HGB Conc 33.3 g/dl (31.0-35.0); Mean Corpuscular Hemoglobin 27.9 pg (27.0-33.0); Mean Corpuscular Volume 83.6 fL (80.0-98.0); NRBC Abs Auto 0.000 X10*3/uL (0.0-0.012); NRBC Pct Auto 0.0 /100WBC (0.0-0.2); PLT CLUMP 1; Red Blood Count 5.35 X10*6/uL (4.20-5.50); SCAN SMEAR FLAG 1
[2025-01-26 12:07] LABS: Alanine Aminotransferase 23 U/L (0-31); Albumin Level 4.4 g/dL (3.5-5.0); Alkaline Phosphatase 98 U/L (39-117); Anion Gap 14 (12-20); Aspartate Amino Transferase 35 U/L (5-31); Blood Urea Nitrogen 10 mg/dL (9-16); Calcium 9.2 mg/dL (8.4-10.2); Carbon Dioxide 21 mmol/L (22-29); Chloride 109 mmol/L (96-108); Cholesterol 97 mg/dL (<200); Estimated Glomerular Filt Rate > 60; HDL Cholesterol 39 mg/dL (>40); Potassium 3.9 mmol/L (3.3-5.1); Sodium 140 mmol/L (135-145); Total Protein 8.2 g/dL (6.5-8.0); Triglycerides 171 mg/dL (<150)
--- OUTSIDE RECORDS SUMMARY | 2025-01-26 12:07 | XMS_ITS | Encounter Summary ---
Author Organization [employer] Address [address] [place] [address] Care Team Providers Care Commission Clerk Name Role Phone Ale Morales MD Primary Care Provider [phone] Encounter Details Date Type Department Care Team ([facility] st Contact Info) Description 08/29/2023 Orders Only [facility] CHC MED & PEDS [address] [place] [address] ProviderAusten MD Social History Tobacco Use Types Packs/Day Years [...] as of this encounter Plan of Treatment Upcoming Encounters Date Type Department Care Team (Late st Contact Info) Description 03/25/2025 10:30 AM EST Clinical Support [facility] MED & PEDS 505 [place] [address] Myla Ortiz, RN [address] [place] [address] documented as of this encounter Procedures Procedure [...] documented as of this encounter Care Teams Commission Clerk Relationship Specialty Start Date End Date Ale Morales MD 230 [place] [address] PCP - General Family Medicine 03/28/21 Shavonne Foote DO [address] [place] [address] Psychiatrist Psychiatry 05/21/19 documented as of this encounter
--- OUTSIDE RECORDS SUMMARY | 2025-01-26 12:07 | XMS_ITS | Encounter Summary ---
Author Organization [employer] Address [address] 7t [place] [address] Care Team Providers Care Journeyman Operator Assistant Name Role Phone Ale Morales MD Primary Care Provider [phone] Encounter Details Date Type Department Care Team (Late Contact Info) Description 04/27/2022 Abstract [facility] ADULT DENTAL [address] [place], [place] [id number] Dental, Provider, DDS Social History Tobacco Use [...] Encounters Date Type Department Care Team (Late Contact Info) Description 03/25/2025 10:30 AM EST Clinical Support [facility] CHC MED & PEDS [address] [place] [address] Myla Ortiz, OLESYA 505 [place] [address] documented as of this encounter Procedures Procedure [...] on filedocumented in this encounter Care Teams Journeyman Operator Assistant Relationship Specialty Start Date End Date Ale Morales MD [address] [place] [address] PCP - General Family Medicine 03/28/21 [facility] [address] [place] [address] Psychiatrist Psychiatry 05/21/19 documented as of this encounter
--- OUTSIDE RECORDS SUMMARY | 2025-01-26 12:07 | XMS_ITS | Clinical Summary ---
Author Organization [facility] Address [address] [place] [address] Care Team Providers Care Physical Security Manager Name Role Phone Unavailable Primary Care Provider Unavailabl e Social History Tobacco Use Types Packs/Day Years Used Date Smoking Tobacco: Never Assessed Comments Unknown Sex and Gender Information Value Date Recorded Sex Assigned at Not on file Legal Sex Female 4:56 PM EST Gender Identity Not on file Sexual Orientation Not on file Plan of Treatment Health Maintenance Due Date Last Done Comments Breast Cancer Screening 1984 DTaP,Tdap,and Td Vaccines (1 - Tdap) 12/23/2003 Hepatitis B Vaccines (1 of 3 - 19+ 3-dose series) 12/23/2003 Cervical Cancer Screening: P ap Smear 2005 HIV Screening 04/19/2022 Hepatitis C Screening 04/19/2022 Social Influencers of Health Screening 04/19/2022 COVID-19 Vaccine ( - 2023-2 5 season) 2024 Depression Screening 05/21/2024 Influenza Vaccine (#1) 2025 HIB Vaccines Aged Out No longer [...] 5 Years) and At-Risk Patients (6 to 49 Years) Aged Out No longer eligible b ased on patient's age to complete this topic RSV Immunization Patients Un kevin 20 months Aged Out No longer eligible b ased on patient's age to complete this topic Varicella Vaccines Aged Out No longer eligible based on patient's age to complete this topic
--- OUTSIDE RECORDS SUMMARY | 2025-01-26 12:07 | XMS_ITS | Encounter Summary ---
Author Organization [employer] Address [address] 7t [place] [address] Care Team Providers Care Sand Cutting Machine Operator Name Role Phone Ale Morales MD Primary Care Provider [phone] Reason for Visit * Reason Onset Date Comments Med Refill 08/26/2024 Encounter Details Date Type Department Care Team ([facility] st Contact Info) Description 08/26/2024 Telephone [facility] MEDICINE [address] [place] [address] Ale Morales MD 505 [place] [address] Med Refill Social History Tobacco Use Types [...] encounter Miscellaneous Notes * Telephone Encounter - Austin Rowland - 08/26/2024 8:44 AM EDT TC from pt requesting medication refill. Medications needing refill : traMADol (Ultram) 50 MG tablet To be sent to: [id number] [place], [place] - [address] [place] [address] AT [facility] documented in this encounter Plan of Treatment Upcoming Encounters Date Type Department Care Team ([facility] st Contact Info) Description 03/25/2025 10:30 AM EST Clinical Support [facility] MED & PEDS 505 [place] [address] Myla Ortiz, OLESYA 505 [place] [address] documented as of this encounter Visit Diagnoses Not on filedocumented in this encounter Additional Health Concerns Assessment Noted Time PHQ-9 Depression Total Score: 5 07/23/19 24 1:43 PM EST documented as of this encounter Care Teams Sand Cutting Machine Operator Relationship Specialty Start Date End Date Ale Morales MD [address] [place] [address] PCP - General Family Medicine 03/28/21 Shavonne Foote DO [address] [place] [address] Psychiatrist Psychiatry 05/21/19 documented as of this encounter
--- OUTSIDE RECORDS SUMMARY | 2025-01-26 12:07 | XMS_ITS | Encounter Summary ---
Author Organization [employer] Address [address] [place] [address] Care Team Providers Care Crude Oil Driver Name Role Phone Ale Morales MD Primary Care Provider [phone] Encounter Details Date Type Department Care Team (Late st Contact Info) Description 08/20/2023 Orders Only [facility] ADULT DENTAL [address] [place] [address] Kerri Paula, DDS [address] [place] [address] Social History Tobacco Use Types Packs/Day Years [...] is your housing situation today? I have [place] moreno 03/22/[address] you [...] Upcoming Encounters Date Type Department Care Team ([facility] Contact Info) Description 03/25/2025 10:30 AM EST Clinical Support [facility] MED & PEDS [address] [place] [address] Myla Ortiz, OLESYA 505 [place] [address] documented as of this encounter Visit Diagnoses Not on filedocumented in this encounter Additional Health Concerns Assessment Noted Time PHQ-9 Depression Total Score: 5 07/23/19 24 1:43 PM EST documented as of this encounter Care Teams Crude Oil Driver Relationship Specialty Start Date End Date Ale Morales MD [address] [place] [address] PCP - General Family Medicine 03/28/21 Shavonne LarkinDO Kristopher [address] [place] [address] Psychiatrist Psychiatry 05/21/19 documented as of this encounter
--- OUTSIDE RECORDS SUMMARY | 2025-01-26 12:07 | XMS_ITS | Encounter Summary ---
Author Organization [employer] Address [address] [facility] 7t [place] [address] Care Team Providers Care Locker Plant Attendant Name Role Phone Ale Morales MD Primary Care Provider [phone] Reason for Visit * Reason Onset Date Comments Med Refill 10/05/2023 Encounter Details Date Type Department Care Team (Late st Contact Info) Description 10/05/2023 Refill [facility] MEDICINE [address] [place] [address] Ale Morales MD [address] [place] [address] Chronic back pain greater than 3 months [...] 50 MG tablet To be sent to: [facility] documented in this encounter Plan of Treatment Upcoming Encounters Date Type Department Care Team (Late st Contact Info) Description 03/25/2025 10:30 AM EST Clinical Support [facility] CHC MED & PEDS [address] [place] [address] Myla Ortiz, OLESYA [address] [place] [address] documented as of this encounter Visit Diagnoses Diagnosis Chronic back pain greater than 3 months duration- Primary documented in this encounter Additional Health Concerns Assessment Noted Time PHQ-9 Depression Total Score: 5 07/23/19 24 1:43 PM EST documented as of this encounter Care Teams Locker Plant Attendant Relationship Specialty Start Date End Date Ale Morales MD [address] [place] [address] PCP - General Family Medicine 03/28/21 Shavonne LarkinDO Kristopher [address] [place] [address] Psychiatrist Psychiatry 05/21/19 documented as of this encounter
--- OUTSIDE RECORDS SUMMARY | 2025-01-26 12:07 | XMS_ITS | Encounter Summary ---
Author Organization [employer] Address [address] [facility] 7t [place] [address] Care Team Providers Care Die Filer Name Role Phone Ale Morales MD Primary Care Provider [phone] Reason for Visit * Reason Onset Date Comments Med Refill 06/26/2022 Encounter Details Date Type Department Care Team ([facility] st Contact Info) Description 06/26/[address] [facility] CHC MED & PEDS [address] [place] [address] Ale Morales MD [address] [place] [address] Med Refill Social History Tobacco Use Types [...] - 07/03/2022 3:40 PM EST RN called [facility], spoke with Julissa and requested for PAP result. Result negative for intraepithelial lesion or malignancy and HPV not detected. will place result in the HIM basket to be scan. RN called pt via [employer] professional development manager ID# [id number] and informed her of pelvic US results from Sveta and plan to refer to [facility]. Pt verbalizes understanding and agrees to plan. * Telephone Encounter - Shavonne Brenner RN - 07/03/2022 3:39 PM EST ----- Message from Sveta Howard CNM sent at 07/03/2022 9:51 AM EST ----- I don't see Cherri's pap results. Could you please call [facility]? Please also let Cherri know her pelvic ultrasound showed a small area in her left ovary that might be a dermoid cyst. It's not clear, and the radiologist advised additional imagi ng. I would like to refer her to [facility] P[facility] for further evaluation, but it would be good to have results. Thanks! * Telephone Encounter - Hero Shannon - 06/26/2022 2:50 PM EST Tc from pt requesting med refill on traMADol (Ultram) 50 MG tablet Please sent to [facility] [place] ID - [id number] Vás[address] documented in this encounter Plan of Treatment Upcoming Encounters Date Type Department Care Team (Late st Contact Info) Description 03/25/2025 10:30 AM EST Clinical Support [facility] CHC MED & PEDS [address] [place] [address] Myla Ortiz, RN 505 [place] [address] documented as of this encounter Visit Diagnoses Not on filedocumented in this encounter Care Teams Die Filer Relationship Specialty Start Date End Date Ale Morales MD 230 [place] [address] PCP - General Family Medicine 03/28/21 Shavonne Foote DO [address] [place] [address] Psychiatrist Psychiatry 05/21/19 documented as of this encounter
--- OUTSIDE RECORDS SUMMARY | 2025-01-26 12:07 | XMS_ITS | Encounter Summary ---
Author Organization [employer] Address [address] [facility] 7t [place] [address] Care Team Providers Care Judicial Law Clerk Name Role Phone Ale Morales MD Primary Care Provider [phone] Reason for Visit * Reason Comments Med Refill Encounter Details Date Type Department Care Team ([facility] st Contact Info) Description 07/08/2023 Refill [facility] CHC MED & PEDS [address] [place], [place] [phone] Ale Mroales MD [address] [place] [address] Social History Tobacco Use Types Packs/Day Years [...] Upcoming Encounters Date Type Department Care Team ([facility] st Contact Info) Description 03/25/2025 10:30 AM EST Clinical Support [facility] MED & PEDS [address] [place] [address] Myla Ortiz, OLESYA [address] [place] [address] documented as of this encounter Visit Diagnoses Not on filedocumented in this encounter Care Teams Judicial Law Clerk Relationship Specialty Start Date End Date Ale Morales MD 230 [place] [address] PCP - General Family Medicine 03/28/21 Shavonne Foote DO [address] [place] [address] Psychiatrist Psychiatry 05/21/19 documented as of this encounter
--- OUTSIDE RECORDS SUMMARY | 2025-01-26 12:07 | XMS_ITS | Encounter Summary ---
Author Organization [employer] Address [address] [facility] 7t [place] [address] Care Team Providers Care Set Up Worker Name Role Phone Ale Morales MD Primary Care Provider [phone] Reason for Visit * Reason Onset Date Comments Appointment 04/02/2023 Encounter Details Date Type Department Care Team ([facility] st Contact Info) Description 04/02/[address] [facility] ADULT DENTAL [address] [place] [address] Jimmy Schuler DDS [address] [place] [address] Appointment Social History Tobacco Use Types Packs/Day [...] Upcoming Encounters Date Type Department Care Team ([facility] st Contact Info) Description 03/25/2025 10:30 AM EST Clinical Support [facility] MED & PEDS [address] [place] [address] Myla Ortiz, OLESYA [address] [place] [address] documented as of this encounter Visit Diagnoses Not on filedocumented in this encounter Care Teams Set Up Worker Relationship Specialty Start Date End Date Ale Morales MD 230 [place] [address] PCP - General Family Medicine 03/28/21 Shavonne Foote DO [address] [place] [address] Psychiatrist Psychiatry 05/21/19 documented as of this encounter
--- OUTSIDE RECORDS SUMMARY | 2025-01-26 12:07 | XMS_ITS | Encounter Summary ---
Author Organization [employer] Address [address] [facility] 7t [place] [address] Care Team Providers Care Tape Rules Printing Machine Operator Name Role Phone Ale Morales MD Primary Care Provider [phone] Reason for Visit * Reason Onset Date Comments Med Refill 10/04/2022 Encounter Details Date Type Department Care Team ([facility] st Contact Info) Description 10/04/2022 Telephone [facility] MED & PEDS [address] [place] [address] Ale Morales MD [address] [place] [address] Med Refill Social History Tobacco Use Types [...] Upcoming Encounters Date Type Department Care Team ([facility] st Contact Info) Description 03/25/2025 10:30 AM EST Clinical Support [facility] MED & PEDS [address] [place] [address] Myla Ortiz, OLESYA [address] [place] [address] documented as of this encounter Visit Diagnoses Not on filedocumented in this encounter Care Teams Tape Rules Printing Machine Operator Relationship Specialty Start Date End Date Ale Morales MD [address] [place] [address] PCP - General Family Medicine 03/28/21 Shavonne Foote DO [address] [place] [address] Psychiatrist Psychiatry 05/21/19 documented as of this encounter
--- OUTSIDE RECORDS SUMMARY | 2025-01-26 12:07 | XMS_ITS | Encounter Summary ---
Author Organization [employer] Address [address] [facility] [address] 7[address] [place] [address] Care Team Providers Care Director Of Casino Name Role Phone Ale Morales MD Primary Care Provider [phone] Reason for Visit * Reason Onset Date Comments Appointment Request 08/09/2023 Encounter Details Date Type Department Care Team ([facility] st Contact Info) Description 08/09/2023 Telephone [facility] MEDICINE [address] [place] [address] Ale Morales MD [address] [place] [address] Appointment Request Social History Tobacco Use Types [...] Description 03/25/2025 10:30 AM EST Clinical Support [facility] & PEDS [address] [place] [address] Myla Ortiz, RN [address] [place] [address] documented as of this encounter Visit Diagnoses Not on filedocumented in this encounter Additional Health Concerns Assessment Noted Time PHQ-9 Depression Total Score: 5 07/23/19 24 1:43 PM EST documented as of this encounter Care Teams Director Of Casino Relationship Specialty Start Date End Date Ale Morales MD [address] [place] [address] PCP - General Family Medicine 03/28/21 Shavonne LarkinDO Kristopher [address] [place] [address] Psychiatrist Psychiatry 05/21/19 documented as of this encounter
--- OUTSIDE RECORDS SUMMARY | 2025-01-26 12:07 | XMS_ITS | Encounter Summary ---
Author Organization [employer] Address [address] [facility] 7t [place] [address] Care Team Providers Care Retail Supervisor Name Role Phone Ale Morales MD Primary Care Provider [phone] Reason for Visit * Reason Onset Date Comments pain antibiotic and pain medication 08/20/2023 Encounter Details Date Type Department Care Team (Late st Contact Info) Description 08/20/2023 Telephone [facility] [address] [place], [place] [phone] Linder-JasonChrisKerri, DDS [address] [place], [place] [phone] pain antibiotic and pain medication Social History [...] as well * Telephone Encounter - Abbey Adikns - 08/20/2023 11:06 AM EDT Patient calling [...] Description 03/25/2025 10:30 AM EST Clinical Support [facility] MED & PEDS [address] [place] [address] Myla Ortiz, OLESYA [address] [place] [address] documented as of this encounter Visit Diagnoses Not on filedocumented in this encounter Additional Health Concerns Assessment Noted Time PHQ-9 Depression Total Score: 5 07/23/19 24 1:43 PM EST documented as of this encounter Care Teams Retail Supervisor Relationship Specialty Start Date End Date Ale Morales MD [address] [place] [address] PCP - General Family Medicine 03/28/21 Shavonne Foote DO [address] [place] [address] Psychiatrist Psychiatry 05/21/19 documented as of this encounter
--- OUTSIDE RECORDS SUMMARY | 2025-01-26 12:07 | XMS_ITS | Encounter Summary ---
Author Organization [employer] Address [address] [facility] 7 [place] [address] Care Team Providers Care Wildlife Science Professor Name Role Phone Ale Morales MD Primary Care Provider [phone] Encounter Details Date Type Department Care Team (Late st Contact Info) Description 04/17/2022 Abstract [facility] MEDICINE [address] [place] [address] ProviderAusten MD Social History Tobacco Use Types [...] Description 03/25/2025 10:30 AM EST Clinical Support [facility] MED & PEDS [address] [place] [address] Myla Ortiz, RN [address] [place] [address] documented as of this encounter Visit Diagnoses Not on filedocumented in this encounter Care Teams Wildlife Science Professor Relationship Specialty Start Date End Date Ale Morales MD [address] [place] [address] PCP - General Family Medicine 03/28/21 Shavonne Foote DO [address] [place] [address] Psychiatrist Psychiatry 05/21/19 documented as of this encounter
--- OUTSIDE RECORDS SUMMARY | 2025-01-26 12:07 | XMS_ITS | Encounter Summary ---
Author Organization [email or web address] Address [address] [facility] 7 [place] [address] Care Team Providers Care Hostess Host Name Role Phone Ale Morales MD Primary Care Provider Reason for Visit * Reason Comments Med Refill Encounter Details Date Type Department Care Team ([facility] st Contact Info) Description 11/17/2024 Refill [facility] MEDICINE [address] [place] [address] Kiki Apple MD [address] [place] [address] Social History Tobacco Use Types Packs/Day Years Used Date Smoking Tobacco: Former Cigarettes 0.3 5 Passive Smoke Exposure: Never Smokeless Tobacco: Never Alcohol Use Standard Drinks/Week Comments Never 0 (1 standard drink = 0.6 oz pur e alcohol) Depression Answer Date Recorded Patient Health Questionnaire-9 Score 0 10/20/2024 Patient Health Questionnaire-9 Score 0 10/20/2024 Last PHQ-9: Questionnaire Data Not on file 0 10/20/2024 Housing Stability Answer Date Recorded What is your housing situation today? I have angela moreno 10/06/[address] you li ve. Do you have problems with any of the following? None of the above 10/06/2024 Food Insecurity Answer Date Recorded Within the past 12 months, y ou worried that your food would run out before you got money to buy more: Never True 10/06/2024 Within the past 12 months,th e food you bought just didn't last and you didn't have enough money to get more: Never True Transportation Answer Date Recorded In the past 12 months, has l ack of transportation kept you from medical appts, meetings, work or from getting things needed for daily living? Yes, it has kept me from medical appointments or getting medications. 10/06/2024 Utilities Answer Date Recorded In the past 12 months, has t he electric, gas, oil or water company threatened to shut off services in your home? No 10/06/2024 Depression Answer Date Recorded Patient Health Questionnaire-2 Score 0 10/20/2024 Internet Access Answer Date Recorded Internet Access Q1 Yes 10/06/2024 Internet Access Q2 Not on file 10/06/2024 Comments Unknown Sex and Gender Information Value [...] Description 03/25/2025 10:30 AM EST Clinical Support [facility] MED & PEDS [address] [place] [address] Myla Ortiz, RN [address] [place] [address] documented as of this encounter Visit Diagnoses Not on filedocumented in this encounter Additional Health Concerns Assessment Noted Time PHQ-9 Depression Total Score: 0 10/21/19 25 11:15 AM EDT documented as of this encounter Care Teams Hostess Host Relationship Specialty Start Date End Date Ale Morales MD [address] [place] [address] PCP - General Family Medicine 03/28/21 Shavonne Foote DO [address] [place] [address] Psychiatrist Psychiatry 05/21/19 documented as of this encounter
--- OUTSIDE RECORDS SUMMARY | 2025-01-26 12:07 | XMS_ITS | Encounter Summary ---
Author Organization [employer] Address [address] [facility] 7t [place] [address] Care Team Providers Care Self Propelled Hot Mix Roller Operator Name Role Phone Ale Morales MD Primary Care Provider [phone] Reason for Visit * Reason Onset Date Comments PT-1 12/13/2023 Encounter Details Date Type Department Care Team ([facility] st Contact Info) Description 12/13/2023 Telephone [facility] MEDICINE [address] [place] [address] Ale Morales MD [address] [place] [address] PT-1 Social History Tobacco Use Types Packs/Day [...] Y/N: Yes Provider name or facility name: [facility] Facility Address: [address] [place] [address] [address] [place], [place] Escort needed: Y/N: No Do you have a wheelchair: Y/N: No If yes- Manual or electric: no Visits: 6 documented in this encounter Plan of Treatment Upcoming Encounters Date Type Department Care Team (Late st Contact Info) Description 03/25/2025 10:30 AM EST Clinical Support [facility] MED & PEDS [address] [place] [address] Myla Ortiz RN [address] [place] [address] documented as of this encounter Visit Diagnoses Not on filedocumented in this encounter Additional Health Concerns Assessment Noted Time PHQ-9 Depression Total Score: 5 07/23/19 24 1:43 PM EST documented as of this encounter Care Teams Self Propelled Hot Mix Roller Operator Relationship Specialty Start Date End Date Ale Morales MD [address] [place] [address] PCP - General Family Medicine 03/28/21 Shavonne Foote, [address] [address] Psychiatrist Psychiatry 05/21/19 documented as of this encounter
--- OUTSIDE RECORDS SUMMARY | 2025-01-26 12:07 | XMS_ITS | Clinical Summary ---
Author Organization [employer] Address [address] [facility] 7t [place] [address] Care Team Providers Care Cyber Security Specialist Name Role Phone Ale Morales MD Primary Care Provider [phone] Allergies Active Allergy Reactions Criticality Noted Date Comments Morphine Dizziness Low 04/24/2022 Nausea Sulfa Antibiotics Swelling Low 06/03/2015 Medications cloNIDine (Catapres) 0.1 MG tablet TAKE 1 TABLET BY MOUTH AT BEDTIME AND TOME 1 TABLETA ASHTYN EL PADMINI SI ES NECESARIO 3 Active SUMAtriptan (Imitrex) 100 MG tablet TAKE 1 TABLET BY MOUTH AT ONSET OF MIGRAINE. MAY REPEAT ONCE AFTER 2 HOURS IF NEEDED NO MORE THAN 2 TABLETS IN 24 HOURS 9 tablet 3 Active albuterol (2.5 MG/3ML) 0.083% nebulizer solution Take 3 mL by nebulization every 6 (six) hours if needed for wheezing. 75 mL 11 3 Active psyllium (Metamucil) 57.6 % powder Take 5.21 g (3 g of fiber) by mouth in the morning. 284 g 11 3 Active amitriptyline (Elavil) 25 MG tabletIndication s:Chronic intractable headache, unspecified headache type TAKE 1 TABLET BY MOUTH AT BEDTIME 90 tablet 1 4 Active acetaminophen (Tylenol) 500 MG tablet Take 1 tablet (500 mg) by mouth every 6 (six) hours if needed for mild pain for up to 20 doses. 20 tablet 4 Active ibuprofen 600 MG tablet Take 1 tablet (600 mg) by mouth every 6 (six) hours if needed for mild pain for up to 20 doses. 20 tablet 4 Active Ventolin HFA 108 (90 Base) MCG/ACT inhalerIndicatio ns:Mild intermittent asthma, unspecified whether complicated INHALE 2 PUFFS BY MOUTH EVERY 4 HOURS NEEDED FOR WHEEZING OR SHORTNESS OF BREATH 18 g 5 4 Active Advair HFA 230-21 MCG/ACT inhaler INHALE 2 PUFFS BY MOUTH TWICE DAILY IN THE MORNING AND AT BEDTIME RINSE MOUTH AFTER USING. WITH WATER DO NOT SWALLOW 12 g 5 4 Active loratadine (Claritin) 10 MG tablet TAKE 1 TABLET BY MOUTH EVERY DAY 90 tablet 1 4 Active omeprazole (PriLOSEC) [address] capsule TAKE 1 CAPSULE BY MOUTH EVERY DAY BEFORE BREAKFAST DO NOT BREAK, CRUSH, DISSOLVE OR CHEW 90 capsule 1 4 Active montelukast (Singulair) 10 MG tablet TAKE 1 TABLET BY MOUTH EVERY DAY AT BEDTIME 90 tablet 1 4 Active perphenazine 2 MG tablet Take 1 tablet by mouth 2 times daily. 4 Active FLUoxetine (PROzac) 40 MG capsule TAKE 1 CAPSULE BY MOUTH EVERY MORNING DIRECTED 4 Active ARIPiprazole (Abilify) 20 MG tablet Take 20 mg by mouth in the morning. 5 Active Tirzepatide-Weig ht Management (Zepbound) 7.5 MG/0.5ML solution auto-injector Inject 0.5 mL (7.5 mg) under the skin 1 (one) time per week. 2 mL 3 5 Active naloxone (Narcan) 4 mg/0.1 mL nasal sprayIndications :Chronic back pain greater than 3 months duration Administer 1 spray (4 mg) into affected nostril(s) if needed for opioid reversal. May repeat every 2-3 minutes if needed, alternating nostrils, until medical assistance becomes available. 2 each 2 5 026 Active rosuvastatin (Crestor) 40 MG tablet TAKE 1 TABLET BY MOUTH EVERY DAY IN THE MORNING 90 tablet 1 5 Active cholecalciferol (D3 Super Strength) 50 MCG (2000 UT) capsule TAKE 1 CAPSULE BY MOUTH EVERY DAY IN THE MORNING 90 capsule 1 5 Active traMADol (Ultram) 50 MG tabletIndication s:Chronic back pain greater than 3 months duration Take 1 tablet (50 mg) by mouth every 6 (six) hours if needed for severe pain for up to 28 days. 112 tablet 5 025 Active Active Problems Problem Noted Date Diagnosed Date Malodorous urine 10/20/2024 Assessment & Plan (10/20/2024 5:00 PM EDT): Patient reports malodorous urine since starting injections, describing it as similar to the smell of fermented beer. This is an unexpected side effect, as the medication is not typically known to affect urine. 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 Sent for 2 weeks, needs a new appt with RN. 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 Obesity (BMI 30-39.9) 04/03/2022 Assessment & Plan (10/20/2024 5:00 PM EDT): Patient currently on pharmacotherapy to assist with management of her weight. Starting weight: 224 lbs Current weight: 193 lbs Wt loss: 31 lbs % wt loss in 5 months: 14% Will incr dose to 7.5% as she has hit a plateau Review continue lifestyle modifications. Patient was titrated up to treatment dose. Tolerated titration well. Reviewed mechanism of action with patient. Discussed side effects with patient: nausea, vomiting, diarrhea & risk of pancreatitis. No contraindications identified: , hx of pancreatitis, hx of medullary thyroid cancer or MEN 2. Discussed calorie deficit, recommended reduction of 20-30% of maintenance calories; vehicle upholsterer referral offered. Recommended to decrease soda and sugary beverage consumption. Recommended at least 20 g per meal of protein to assist with satiety. Recommended at least 150 min/week of moderate intensity exercise. Plan: - Increase medication dose to 7.5 (units not specified) - Follow up in 6 weeks to reassess weight progress - Schedule follow-up appointment in 8 weeks for discussion with Myla Assessment & Plan (06/30/2024 12:58 PM EST): [...] recommended reduction of 20-30% of maintenance calories; vehicle upholsterer referral offered. Recommended to decrease soda and sugary beverage consumption. Recommended at least 20 g per meal of protein to assist with satiety. Recommended at least 150 min/week of moderate intensity exercise. Assessment & Plan (08/29/2023 10:58 AM EDT): I called [facility] to discuss reason for denial of Wegovy, given patient never received Saxenda. Reviewed with tech documentation. Jose from the [facility] pharmacy will fix and send approval. Assessment & Plan (08/14/2023 11:08 AM EDT): Discussed calorie deficit, recommended reduction of 20-30% of maintenance calories; vehicle upholsterer referral offered. Recommended to decrease soda and sugary beverage consumption. Recommended at least 20 g per meal of protein to assist with satiety. Recommended at least 150 min/week of moderate intensity exercise. Patient initial order Saxenda and approved by her insurance given her need, but unfortunately, this medication is not available and is on backorder from the pharmacy, [employer] tech quote it may not be untile September or October, I proceed with send Wegovy, she will not be using Wegovy in combination with another GLP-1, her prescription was substituted given no availability. Assessment & Plan (03/22/2023 2:54 PM EDT): Discussed calorie deficit, recommended reduction of 20-30% of maintenance calories; vehicle upholsterer referral offered. Recommended to decrease soda and [...] Encounters Date Type Department Care Team Description 01/16/2025 Refill [facility] [address] [place] [address] Ale Morales MD Chronic back pain greater than 3 months duration (Primary Dx) 01/07/2025 11:00 AM EDT Clinical Support [facility] [address] [place] [address] Myla Ortiz, three knife trimmer back pain greater than 3 months duration 01/07/2025 Telephone [facility] [address] [place] [address] Myla Ortiz RN 01/07/2025 Travel 12/06/2024 Refill [facility] [address] [place] [address] Ale Morales MD 11/28/2024 Refill [facility] [address] [place] [address] Ale Morales MD Chronic back pain greater than 3 months duration (Primary Dx) 11/25/2024 Telephone [facility] [address] [place] [address] Ale Morales MD Prior Authorization 11/24/2024 Travel 11/24/2024 Telephone [facility] [address] [place] [address] Ale Morales MD Appointment Request 11/17/2024 Refill [facility] [address] [place] [address] Kiki Apple MD 10/28/2024 Results Follow-Up [facility] [address] [place] [address] Ale Morales MD Bacterial Vaginosis, Urinalysis, Complete, with Reflex to Culture from Last 3 Months Immunizations Immunization Administration Dates Next Due Influenza injectable quadriv [...] Sign Reading Time Taken Comments Blood Pressure 104/68 10/20/2024 11:13 AM EDT Pulse 88 10/20/2024 11:13 AM EDT Temperature 36.5 C (97.7 F) 10/20/2024 11:13 AM EDT Respiratory Rate 20 10/20/2024 11:13 AM EDT Oxygen Saturation 99% 05/28/2024 9:34 AM EST Inhaled Oxygen Concentration - - Weight 87.5 kg (193 lb) 10/20/2024 11:13 AM EDT Height 162.6 cm (5' 4 ) 10/20/2024 11:13 AM EDT Body Mass Index 33.13 10/20/2024 11:13 AM EDT Plan of Treatment Upcoming Encounters Date Type Department Care Team ([facility] st Contact Info) Description 03/25/2025 10:30 AM EST Clinical Support [facility] [address] [place] [address] Myla Ortiz, RN [address] [place] [address] Health Maintenance Due Date Last Done Comments Disability Screening 1984 Family Planning (PISQ) 12/23/1999 HPV Vaccines (1 - 3-dose series) 12/23/1999 Hepatitis B Vaccines (1 of 3 - 19+ 3-dose series) 12/23/2003 Dental Prophylaxis 04/07/2017 10/04/2016 Dental Oral Exam 02/04/2022 08/03/2021, , 06/03/2015 Dental X-Ray: Full Mouth 08/04/2024 08/03/2021, 05/21 Diabetes: Hemoglobin A1C 08/05/2024 024, 11/22/2022, 10/09/2022, Additional history exists Dental X-Ray: Bitewings 09/05/2024 09/05/19 24, 08/15/2023, 08/03/2021, Additional history exists Mammogram 2024 COVID-19 Vaccine ( season) 2025 07/22/2021, 07/22/2021 Influenza Vaccine (#1) 2025 , 07/22/2021, 07/29/2019 Alcohol/Substance Use Screening 05/28/2025 05/28/2024 SDOH Screening 10/06/2025 10/06/2024 Depression Screening 10/20/2025 10/20/2024, 10/21/19 25 Tobacco Screening 10/20/2025 10/20/2024 Cervical Cancer Screening 05/08/2028 HPV/Cotest 05/08/2028 Pap [...] Years) and At-Risk Patients (6 to 49) Years Completed 08/29/2023 HIB Vaccines Aged Out No longer eligi [...] Procedure Name Priority Date/Time Associated Diagnosis Comments POCT EDDY-14 URINE DRUG SCREEN Routine 01/07/2025 11:37 AM EDT Chronic back pain greater than 3 months duration BITEWING - SINGLE RADIOGRAPHIC IMAGE Routine 09/05/2023 [...] ESTABLISHED PATIENT Routine 08/03/2021 12:00 AM EDT ZZZ HISTORICAL HEPATITIS C AB W/REFL TO HCV RNA, QN, PCR Routine 12/26/2019 3:51 PM EDT HIV 1/2 ANTIGEN/ANTIBODY, FOURTH GENERATION W/RFL Routine 12/26/2019 3:51 PM EDT PROPHYLAXIS - ADULT Routine 10/04/2016 1 2:00 AM EDT from Last 3 Months or Most Recently Relevant to Health Maintenance Results * POCT EDDY-14 Urine Drug Screen (01/07/2025 11:37 AM EDT) THC Negative Negative Cocaine Screen, Urine Negative Negative Opiate Screen, Urine Negative Negative Methamphetamine Screen Urine Negative Negative Amphetamine Screen, Urine Negative Negative Benzodiazepines Screen, Urine Negative Negative Barbiturate Screen, Urine Negative Negative Methadone Screen, Urine Negative Negative Buprenophine Screen, Urine Negative Negative TCA, Urine Negative Negative MDMA Urine Negative Negative ng/mL Oxycodone Screen, Urine Negative Negative Phencyclidine (PCP), Urine Negative Negative Propoxyphene, Urine Negative Negative Fentanyl, Urine Negative Negative Urine Urine specimen obtained by clean catch procedure / Unknown 01/07/2025 11:37 AM EDT Narrative Myla Ortiz RN - 01/07/2025 11:37 AM EDT Internal Pass Control Lot# [id number] Exp: 03-20-26 us Ale Morales MD POINT OF CARE TEST ENTER/EDIT ORDERABLES Final Result * Hemoglobin A1c (08/06/2023 11:24 AM EDT) Hemoglobin A1c 5.8 <6.0 % [facility] Comment:Hemoglobin A1C Refer ence Range Adults: 4.8 - 6.0 % Non diabetic: < 6.0 % Goal: < 7.0 %Additional Action Suggested: > 8.0 %Note: Hemoglobin A1c results are invalid for patients with abnormal amounts of HbF. Blood transfusions may impact the HbA1c concentration in the patient sample. Estimated Average Glucose 120 mg/dL [facility] Comment:eAG = Estimated ave rage glucose which is %A1C expressed asaverage glucose, using the formula of the [id number] Glucose study (ADAG), Diabetes Care, Vol.31,#8,Dec. 2007 Blood Venous blood specimen / Unknown 08/06/2023 11:24 AM EDT 08/06/2023 11:24 AM EDT us Ale Morales MD LAB BLOOD ORDERABLES Final Re sult [facility] [address] [place], [place] [phone] * (ABNORMAL) Lipid Panel, Standard (08/06/2023 11:24 AM EDT) Triglycerides 255(H) <150 mg/dL [facility] Comment:Desirable Triglyceri de: less than 150 mg/dLBorderline High Triglyceride 150-199 mg/dLHigh Triglyceride: 200-499 mg/dLVery High Triglyceride: greater than or equal to 5OO mg/dL Cholesterol 146 <200 mg/dL [facility] Comment:Desirable Cholestero l: less than 200 mg/dLBorderline High Cholesterol: 200-239 mg/dLHigh Cholesterol: greater than 239 mg/dL LDL Cholesterol Calculated 55 <100 mg/dL [facility] Comment:Desirable LDL: less than 100 mg/dLNear Optimal/Above Optimal LDL: 110- 129 mg/dLBorderline High LDL: 130-159 mg/dLHigh LDL: 160-189 mg/dLVery High LDL: greater than or equal to 190 mg/dL HDL Cholesterol 40(L) >40 mg/dL [facility] Comment:Desirable HDL: great er than 40 mg/dL Note: This HDL assay may give artificially low results in patients with liver disease. Blood Venous blood specimen / Unknown 08/06/2023 11:24 AM EDT 08/06/2023 11:24 AM EDT Ale Morales MD LAB BLOOD ORDERABLES Final Re sult [facility] [address] [place] [phone] * Pap Smear (05/08/2023) Pap Smear 1. NILM 1. NILM Swab 05/08/2023 Historical Provider LAB CYTOLOGY ORDERABLES F inal Result * HEPATITIS C AB W/REFL TO HCV RNA, QN, PCR (12/26/2019 3:51 PM EDT) HEPATITIS C ANTIBODY NON-REACT ALFONSO NON-REACT ALFONSO [facility] INDEX 0.03 <1.00 [facility] Comment: HCV antibody was non-reactive. There is no laboratory evidence of HCV infection. In most cases, no further action is required. However, if recent HCV exposure is suspected, a test for HCV RNA (test code 37952) is suggested. For additional information please refer to http://Izooble[employer]/faq/BPD82g1 (This link is being provided for informational/ educational purposes only.) HEPATITIS C ANTIBODY NON-REACT ALFONSO NON-REACT [facility] INDEX 0.03 <1.00 [facility] Comment: HCV antibody was non-reactive. There is no laboratory evidence of HCV infection. In most cases, no further action is required. However, if recent HCV exposure is suspected, a test for HCV RNA (test code 52103) is suggested. For additional information please refer to http://Izo[employer]/faq/NQW57n9 (This link is being provided for informational/ educational purposes only.) HEPATITIS C ANTIBODY NON-REACT ALFONSO NON-REACT [facility] INDEX 0.03 <1.00 [facility] Comment: HCV antibody was non-reactive. There is no laboratory evidence of HCV infection. In most cases, no further action is required. However, if recent HCV exposure is suspected, a test for HCV RNA (test code 15331) is suggested. For additional information please refer to http://Fengxiafei/faq/BCI99l0 (This link is being provided for informational/ educational purposes only.) HEPATITIS C ANTIBODY NON-REACT ALFONSO NON-REACT ALFONSO [facility] INDEX 0.03 <1.00 [facility] Comment: HCV antibody was non-reactive. There is no laboratory evidence of HCV infection. In most cases, no further action is required. However, if recent HCV exposure is suspected, a test for HCV RNA (test code 51182) is suggested. For additional information please refer to http://Fengxiafei/faq/PNB99t5 (This link is being provided for informational/ educational purposes only.) 12/26/2019 3:51 PM EDT Nicky AUGUSTINP HISTORICAL/NON ORDERABLE LABS Final Result [facility] [address] * HIV 1/2 ANTIGEN/ANTIBODY,FOURTH GENERATION W/RFL (12/26/2019 3:51 PM EDT) HIV-1/2 ANTIGEN AND ANTIBODIES, 4TH GENERATION W/ REFLEX NON-REACT ALFONSO NON-REACT ALFONSO [facility] Comment: HIV-1 antigen and HIV-1/HIV-2 antibodies were not detected. There is no laboratory evidence of HIV infection. PLEASE NOTE: This information has been disclosed to you from records whose confidentiality may be protected by state law. If your state requires such protection, then the state law prohibits you from making any further disclosure of the information without the specific written consent of the person to whom it pertains, or as otherwise permitted by law. A general authorization for the release of medical or other information is NOT sufficient for this purpose. For additional information please refer to http://Izooble.[employer] Technology/faq/WTE143 (This link is being provided for informational/ educational purposes only.) The performance of this assay has not been clinically validated in patients less than 2 years old. HIV-1/2 ANTIGEN AND ANTIBODIES, 4TH GENERATION W/ REFLEX NON-REACT ALFONSO NON-REACT ALFONSO [facility] Comment: HIV-1 antigen and HIV-1/HIV-2 antibodies were not detected. There is no laboratory evidence of HIV infection. PLEASE NOTE: This information has been disclosed to you from records whose confidentiality may be protected by state law. If your state requires such protection, then the state law prohibits you from making any further disclosure of the information without the specific written consent of the person to whom it pertains, or as otherwise permitted by law. A general authorization for the release of medical or other information is NOT sufficient for this purpose. For additional information please refer to http://Izooble.[employer]/faq/VPJ095 (This link is being provided for informational/ educational purposes only.) The performance of this assay has not been clinically validated in patients less than 2 years old. HIV-1/2 ANTIGEN AND ANTIBODIES, 4TH GENERATION W/ REFLEX NON-REACT ALFONSO NON-REACT ALFONSO [facility] Comment: HIV-1 antigen and HIV-1/HIV-2 antibodies were not detected. There is no laboratory evidence of HIV infection. PLEASE NOTE: This information has been disclosed to you from records whose confidentiality may be protected by state law. If your state requires such protection, then the state law prohibits you from making any further disclosure of the information without the specific written consent of the person to whom it pertains, or as otherwise permitted by law. A general authorization for the release of medical or other information is NOT sufficient for this purpose. For additional information please refer to http://Izooble.[employer]/faq/QYI748 (This link is being provided for informational/ educational purposes only.) The performance of this assay has not been clinically validated in patients less than 2 years old. 12/26/2019 3:51 PM EDT us Nicky Lima [facility] LAB BLOOD ORDERABLES Final Res ult [facility] [address] from Last 3 Months or Most Recently Relevant to Health Maintenance Insurance [facility] ADULT Care Teams Cyber Security Specialist Relationship Specialty Start Date End Date Ale Morales MD [address] [place] [address] PCP - General Family Medicine 03/28/21 Shavonne Foote DO [address] [place] [address] Psychiatrist Psychiatry 05/21/19
--- OUTSIDE RECORDS SUMMARY | 2025-01-26 12:07 | XMS_ITS | Encounter Summary ---
Author Organization [employer] Address [address] [facility] 7[address] [place] [address] Care Team Providers Care Claims Agent Right Of Way Name Role Phone Ale Morales MD Primary Care Provider [phone] Reason for Visit * Reason Onset Date Comments Med Refill 10/05/2023 Encounter Details Date Type Department Care Team (Late st Contact Info) Description 10/05/2023 Refill [facility] [address] [place] [address] Ale Morales MD [address] [place] [address] Social History Tobacco Use Types Packs/Day Years [...] encounter Miscellaneous Notes * Telephone Encounter - Sebastiánrose Ramirez - 10/05/2023 1:55 PM EDT TC from pt requesting medication refill. Medications needing refill: Semaglutide-Weight Management (Wegovy) 0.25 MG/0.5ML solution auto-injector To be sent to: [facility] documented in this encounter Plan of Treatment Upcoming Encounters Date Type Department Care Team ([facility] st Contact Info) Description 03/25/2025 10:30 AM EST Clinical Support [facility] [address] [place] [address] Myla Ortiz, OLESYA [address] [place] [address] documented as of this encounter Visit Diagnoses Not on filedocumented in this encounter Additional Health Concerns Assessment Noted Time PHQ-9 Depression Total Score: 5 07/23/19 24 1:43 PM EST documented as of this encounter Care Teams Claims Agent Right Of Way Relationship Specialty Start Date End Date Ale Morales MD [address] [place] [address] PCP - General Family Medicine 03/28/21 Shavonne Larkin-DO Kristopher [address] [place] [phone] Psychiatrist Psychiatry 05/21/19 documented as of this encounter
--- OUTSIDE RECORDS SUMMARY | 2025-01-26 12:08 | XMS_ITS | Encounter Summary ---
Author Organization [employer] Address [address] [facility] [address] [facility] [address] [place] [address] Care Team Providers Care Interior Design Professional Name Role Phone Ale Morales MD Primary Care Provider [phone] Reason for Visit * Reason Comments Med Refill Encounter Details Date Type Department Care Team ([facility] st Contact Info) Description 05/09/2023 Refill [facility] [address] [place], [place] [phone] Ale Morales MD [address] [place] [address] Fibromyalgia Social History Tobacco Use Types Packs/Day [...] Upcoming Encounters Date Type Department Care Team ([facility] st Contact Info) Description 03/25/2025 10:30 AM EST Clinical Support [facility] [address] [place] [address] Myla Ortiz, OLESYA [address] [place] [address] documented as of this encounter Visit Diagnoses Diagnosis Fibromyalgia Unspecified myalgia and myositis documented in this encounter Care Teams Interior Design Professional Relationship Specialty Start Date End Date Ale Morales MD [address] [place] [address] PCP - General Family Medicine 03/28/21 Shavonne Foote DO [address] [place] [address] Psychiatrist Psychiatry 05/21/19 documented as of this encounter
[2025-01-26 12:16] LABS: White Blood Count 4.7 X10*3/uL (4.8-10.8)
[2025-01-26 12:55] LABS: Free T4 (Free Thyroxine) 0.95 ng/dL (0.71-1.85)
== END 2025-01-26 10:13 | disposition home or self-care (01) ==
LOC: HO.HHCL 10:12
PROVIDERS: PCP Family Medicine; Visit Provider Family Medicine
DX: E66.9 Obesity, unspecified (principal)
CPT/HCPCS: 36415; 80053; 80061; 84439; 84443; 85025